=== PATIENT | male | born 1985 | race Caucasian/White ===

== ENCOUNTER 2021-11-01 19:36 | Inpatient (IN) | payer OTHER, MEDICAID, SELFPAY ==
[2021-11-01 19:46] VITALS: BP 141/96; PULSE 60; RESP 18; TEMP 36.7; O2SAT 99; BMI 25.1
[2021-11-01 20:26] LABS: MANUAL DIFF FLAG NO
[2021-11-01 20:27] LABS: COVID-19 Test Negative (Negative)
[2021-11-01 20:27] LABS: Basophils Percent Auto 0.3 % (0-2); Eosinophils Absolute Auto 0.1 X10*3/uL (0.0-0.4); Eosinophils Percent Auto 0.8 % (0-4); Hematocrit 41.6 % (42.0-52.0); Hemoglobin 13.5 g/dl (14.0-18.0); Imm Gran Abs Auto 0.02 X10*3/uL (0.00-0.03); Imm Gran Pct Auto 0.3 % (0.0-0.4); Lymphocytes Absolute Auto 2.2 X10*3/uL (1.2-4.9); Lymphocytes Percent Auto 35.4 % (20-40); Mean Corpuscular HGB Conc 32.5 g/dl (31.0-36.0); Mean Corpuscular Hemoglobin 28.9 pg (27.0-33.0); Mean Corpuscular Volume 89.1 fL (80.0-98.0); Mean Platelet Volume 9.9 fL (9.4-12.4); Monocytes Absolute Auto 0.5 X10*3/uL (0.1-1.2); Monocytes Percent Auto 7.5 % (2-11); Neutrophils Absolute Auto 3.4 x10*3/uL (2.0-8.3); Neutrophils Percent Auto 55.7 % (45-73); Platelet Count 205 X10*3/uL (160-400); Red Blood Count 4.67 X10*6/uL (4.60-5.80); Red Cell Distribution Width 12.5 % (11.0-16.0); White Blood Count 6.2 X10*3/uL (4.8-10.8)
--- NOTE | 2021-11-01 20:36 | ED.PSYCH ---
HPI - Psych General Chief Complaint: Psychiatric Symptoms <ABDI Shipley Last Filed: 11/01/21 21:03> Stated Complaint: SI Crisis <ABDI Shipley Last Filed: 11/01/21 21:03> Time Seen by Provider: 11/01/21 19:46 <ABDI Shipley Last Filed: 11/01/21 21:03> Source: patient and EMS <ABDI Shipley Last Filed: 11/01/21 21:03> Mode of arrival: EMS <ABDI Shipley Last Filed: 11/01/21 21:03> History of Present Illness HPI Narrative: 36-year-old male with no significant past medical history brought in by ambulance from [facility] clinic on section 12 inpatient bed search for increased depression and suicidality. Patient reports depression x7 months with many different plans for suicide which he will not be explicit with. Admits to plan today. Reports depression due to losing land/job and becoming poor. States he does not want to deal with anything any longer, and cries all day every day with no more tears to cry but the only reason he does not commit suicide is because of his family. Denie EtOH or drug use. Reports generalized fatigue/weakness. Denies chest pain, shortness of breath, abdominal pain, nausea/vomiting, HI <ABDI Shipley Last Filed: 11/01/21 21:03> MD complaint: suicidal ideation and feels depressed <ABDI Shipley Last Filed: 11/01/21 21:03> Onset (ago): month(s) <ABDI Shipley Last Filed: 11/01/21 21:03> Related Data Home Medications: Home Medications Medication Instructions Recorded Confirmed clonazepam 0.5 mg tablet 1 tab PO BID PRN 11/01/21 11/01/21 dextroamphetamine-amphetamine ER 1 cap PO DAILY PRN 11/01/21 11/01/21 10 mg 24hr capsule,extend release (Adderall XR) gabapentin 100 mg capsule 1 cap PO NEEDED PRN 11/01/21 11/01/21 lithium carbonate 600 mg capsule 1 cap PO TID 11/01/21 11/01/21 lurasidone 40 mg tablet (Latuda) 1 tab DAILY 11/01/21 11/01/21 melatonin 10 mg capsule 1 tab PO BEDTIME PRN 11/01/21 11/01/21 <ABDI Shipley - Last Filed: 11/01/21 21:03> Allergies/Adverse Reactions: Allergies Allergy/AdvReac Type Severity Reaction Status Date / Time No Known Allergies Allergy Mild N/A Unverified 02/17/20 17:31 <ABDI Shipley - Last Filed: 11/01/21 21:03> Review of Systems Review of Systems: Constitutional: No Fever, No Chills,No Fatigue, No Malaise ENT/Mouth: No Ear Pain, No Nasal Congestion, No sore throat, No Rhinorrhea, No Swallowing Difficulty Eyes: No Eye Pain, No Swelling, No Redness Cardiovascular: No Chest Pain, No SOB, No Edema, No Palpitations Respiratory: No Cough, No Sputum, No Dyspnea Gastrointestinal: No Nausea, No Vomiting, No Diarrhea, No Constipation, No Abdominal pain Genitourinary: No Dysuria, No Urinary Frequency, No Hematuria, No Flank Pain Musculoskeletal: No joint pain, No Myalgias, No Joint Swelling Skin: No Skin Lesions, No rash Neuro: + Weakness, No Numbness, No Paresthesias, No Loss of Consciousness, No Dizziness, No Headache Psych: No Anxiety/Panic, + Depression, + SI, No HI/AH/VH, + Social Issues <ABDI Shipley - Last Filed: 11/01/21 21:03> Yes all other systems are reviewed and are negative <ABDI Shipley Last Filed: 11/01/21 21:03> [facility] Past Medical History Attestation statement: The following information was validated with the patient. <ABDI Shipley - Last Filed: 11/01/21 21:03> Social History Social History: Social History Advance Directives: No <ABDI Shipley Last Filed: 11/01/21 21:03> Physical Exam Vital Signs: Vital Signs: Last Vital Signs Temp 98.1 F 11/01/21 19:46 Pulse 73 11/02/21 01:12 Resp 16 11/02/21 01:12 BP 139/82 11/02/21 01:12 Pulse Ox 97 11/02/21 01:12 BMI result Body Mass Index 25.1 <ABDI Shipley - Last Filed: 11/01/21 21:03> Const: General: cooperative, healthy appearing, no acute distress, alert, awake and Physically active <ABDI Shipley - Last Filed: 11/01/21 21:03> Orientation/consciousness: patient oriented x3 <ABDI Shipley - Last Filed: 11/01/21 21:03> Limitations: no limitations <ABDI Shipley - Last Filed: 11/01/21 21:03> HEENT: Head: Yes normal to inspection and Yes atraumatic <ABDI Shipley - Last Filed: 11/01/21 21:03> Ears: hearing grossly normal bilaterally <ABDI Shipley - Last Filed: 11/01/21 21:03> General nose exam: Normal external nose present <ABDI Shipley - Last Filed: 11/01/21 21:03> Face and sinus: Yes normal facial exam <ABDI Shipley - Last Filed: 11/01/21 21:03> Throat: Yes posterior oropharynx normal <ABDI Shipley - Last Filed: 11/01/21 21:03> Eyes: General: appearance normal, both eyes and all related structures <ABDI Shipley - Last Filed: 11/01/21 21:03> Pupils: Equal, round and reactive pupils present <ABDI Shipley - Last Filed: 11/01/21 21:03> EOM: EOMs intact bilaterally <ABDI Shipley - Last Filed: 11/01/21 21:03> Neck: Neck: Yes normal visual inspection and Yes no meningeal signs <ABDI Shipley - Last Filed: 11/01/21 21:03> Resp: Effort & Inspection: normal respiratory effort and no respiratory distress <ABDI Shipley - Last Filed: 11/01/21 21:03> Auscultation: clear to auscultation bilaterally, no rales, no rhonchi and no wheezes <ABDI Shipley - Last Filed: 11/01/21 21:03> Cardio: Rate: regular rate <Shala Momin PA - Last Filed: 11/01/21 21:03> Heart sounds: S1 normal heart sound present and S2 normal heart sound present <Shala Momin PA - Last Filed: 11/01/21 21:03> GI: Inspection: Yes normal to inspection <Shala Momin PA - Last Filed: 11/01/21 21:03> Palpation (GI): Soft to palpation, nontender, no guarding and not rigid <Shala Momin PA - Last Filed: 11/01/21 21:03> Skin: Rashes: no rashes <Shala Momin PA - Last Filed: 11/01/21 21:03> Wounds: no wounds <Shala Momin PA - Last Filed: 11/01/21 21:03> Neuro: General: patient oriented x3, gait normal, tone normal, moves all extremities, no meningeal signs, no focal motor deficits and CN's II-XI intact bilaterally <Shala Momin PA - Last Filed: 11/01/21 21:03> Cranial nerves: Yes Equal, round and reactive pupils present <Shala Momin PA - Last Filed: 11/01/21 21:03> Gait exam (Neuro): Normal gait present <Shala Momin PA - Last Filed: 11/01/21 21:03> Extrem: General: Yes normal to inspection <Shala Momin PA - Last Filed: 11/01/21 21:03> Psych: Speech and movement: Normal speech and movement present <Shala Momin PA - Last Filed: 11/01/21 21:03> Affect: Sad affect present and Irritable affect present <Shala Momin PA - Last Filed: 11/01/21 21:03> Attitude: cooperative <Shala Momin PA - Last Filed: 11/01/21 21:03> Thought content: Suicidality present, no homicidality and Depressive thoughts present <ABDI Shipley - Last Filed: 11/01/21 21:03> Course Course Course Narrative: -2100--ED care transferred to Dr. Elmogy pending labs, UA/NGUYEN and bed search <ABDI Shipley - Last Filed: 11/01/21 21:03> MDM - Psych MDM Narrative Medical decision making narrative: 36-year-old male with no significant past medical history brought in by ambulance from [facility] on section 12 inpatient bed search for increased depression and suicidality. On exam vital signs stable, NAD, appears depressed, sad affect, expressing suicidal ideation. Will rule out organic etiology Plan: Labs, drug screen, crisis cons <ABDI Shipley - Last Filed: 11/01/21 21:03> Differential Diagnosis Differential diagnosis: Likely suicidal ideation and depression <ABDI Shipley - Last Filed: 11/01/21 21:03> Medical Records Attestation: I reviewed the patient's medical records. <ABDI Shipley - Last Filed: 11/01/21 21:03> Lab Data Attestation: I reviewed the patient's lab results. <ABDI Shipley - Last Filed: 11/01/21 21:03> Result diagrams: : 11/01/21 20:20 11/01/21 20:20 <ABDI Shipley - Last Filed: 11/01/21 21:03> Labs: Lab Results 11/01/21 11/01/21 11/01/21 Range/Units 19:56 20:11 20:20 WBC 6.2 (4.8-10.8) X10*3/uL RBC 4.67 (4.60-5.80) X10*6/uL Hgb 13.5 L (14.0-18.0) g/dl Hct 41.6 L (42.0-52.0) % MCV 89.1 (80.0-98.0) fL MCH 28.9 (27.0-33.0) pg MCHC 32.5 (31.0-36.0) g/dl RDW 12.5 (11.0-16.0) % Plt Count 205 (160-400) X10*3/uL MPV 9.9 (9.4-12.4) fL Immature Gran % (Auto) 0.3 (0.0-0.4) % Neut % (Auto) 55.7 (45-73) % Lymph % (Auto) 35.4 (20-40) % [place] % (Auto) 7.5 (2-11) % Eos % (Auto) 0.8 (0-4) % Baso % (Auto) 0.3 (0-2) % Lymph # (Auto) 2.2 (1.2-4.9) X10*3/uL [place] # (Auto) 0.5 (0.1-1.2) X10*3/uL Eos # (Auto) 0.1 (0.0-0.4) X10*3/uL Baso # (Auto) 0.0 (0.0-0.2) X10*3/uL Abs Immat Gran (auto) 0.02 (0.00-0.03) X10*3/uL Absolute Neuts (auto) 3.4 (2.0-8.3) x10*3/uL Absolute Nucleated RBC 0.000 (0.0-0.012) X10*3/uL Nucleated RBC % (auto) 0.0 (0.0-0.2) /100WBC Sodium (135-145) mmol/L Potassium (3.3-5.1) mmol/L Chloride (96-108) mmol/L Carbon Dioxide (22-29) mmol/L Anion Gap (12-20) BUN (9-16) mg/dL Creatinine (0.5-1.4) mg/dL Estim Creat Clear Calc Estimated GFR Random Glucose (60-115) mg/dL Calcium (8.4-10.2) mg/dL Magnesium (1.6-2.6) mg/dL Total Bilirubin (0.0-1.0) mg/dL Direct Bilirubin (0.0-0.5) mg/dL AST (5-37) U/L ALT (0-40) U/L Alkaline Phosphatase (39-117) U/L Total Protein (6.5-8.0) g/dL Albumin (3.5-5.0) g/dL Salicylates (15-30) mg/dL Urine Opiates Screen Not Detected (Not Detect) Urine Fentanyl Screen Not Detected (Not Detect) Acetaminophen (<30) mcg/mL Ur Barbiturates Screen Not Detected (Not Detect) Ur Phencyclidine Scrn Not Detected (Not Detect) Ur Amphetamines Screen Not Detected (Not Detect) U Benzodiazepines Scrn Not Detected (Not Detect) Urine Cocaine Screen Not Detected (Not Detect) U Marijuana (THC) Screen Not Detected (Not Detect) Ethyl Alcohol mg/dL COVID-19 ([facility]) Negative (Negative) COVID-19 Clin Com See Note 11/01/21 11/01/21 Range/Units 20:20 20:20 WBC (4.8-10.8) X10*3/uL RBC (4.60-5.80) X10*6/uL Hgb (14.0-18.0) g/dl Hct (42.0-52.0) % MCV (80.0-98.0) fL MCH (27.0-33.0) pg MCHC (31.0-36.0) g/dl RDW (11.0-16.0) % Plt Count (160-400) X10*3/uL MPV (9.4-12.4) fL Immature Gran % (Auto) (0.0-0.4) % Neut % (Auto) (45-73) % Lymph % (Auto) (20-40) % [place] % (Auto) (2-11) % Eos % (Auto) (0-4) % Baso % (Auto) (0-2) % Lymph # (Auto) (1.2-4.9) X10*3/uL [place] # (Auto) (0.1-1.2) X10*3/uL Eos # (Auto) (0.0-0.4) X10*3/uL Baso # (Auto) (0.0-0.2) X10*3/uL Abs Immat Gran (auto) (0.00-0.03) X10*3/uL Absolute Neuts (auto) (2.0-8.3) x10*3/uL Absolute Nucleated RBC (0.0-0.012) X10*3/uL Nucleated RBC % (auto) (0.0-0.2) /100WBC Sodium 139 (135-145) mmol/L Potassium 3.7 (3.3-5.1) mmol/L Chloride 105 (96-108) mmol/L Carbon Dioxide 26 (22-29) mmol/L Anion Gap 12 (12-20) BUN 12 (9-16) mg/dL Creatinine 1.05 (0.5-1.4) mg/dL Estim Creat Clear Calc 96.3 Estimated GFR > 60 Random Glucose 83 (60-115) mg/dL Calcium 9.2 (8.4-10.2) mg/dL Magnesium 2.3 (1.6-2.6) mg/dL Total Bilirubin 0.4 (0.0-1.0) mg/dL Direct Bilirubin 0.2 (0.0-0.5) mg/dL AST 19 (5-37) U/L ALT 27 (0-40) U/L Alkaline Phosphatase 48 (39-117) U/L Total Protein 6.9 (6.5-8.0) g/dL Albumin 4.2 (3.5-5.0) g/dL Salicylates < 5.0 L (15-30) mg/dL Urine Opiates Screen (Not Detect) Urine Fentanyl Screen (Not Detect) Acetaminophen < 1 (<30) mcg/mL Ur Barbiturates Screen (Not Detect) Ur Phencyclidine Scrn (Not Detect) Ur Amphetamines Screen (Not Detect) U Benzodiazepines Scrn (Not Detect) Urine Cocaine Screen (Not Detect) U Marijuana (THC) Screen (Not Detect) Ethyl Alcohol < 10 mg/dL COVID-19 ([facility]) (Negative) COVID-19 Clin Com <ABDI Shipley - Last Filed: 11/01/21 21:03> Discharge Plan Discharge Clinical Impression: Suicidal ideation, Depression <ABDI Shipley - Last Filed: 11/01/21 21:03> Patient Disposition: Still a Patient <ABDI Shipley - Last Filed: 11/01/21 21:03> Prescriptions: No Action clonazepam 0.5 mg tablet 1 tab PO BID PRN (Reason: anxiety) 0RF lithium carbonate 600 mg capsule 1 cap PO TID 0RF dextroamphetamine-amphetamine [Adderall XR] 10 mg capsule,extended release 24hr 1 cap PO DAILY PRN (Reason: Anxiety) 0RF gabapentin 100 mg capsule 1 cap PO NEEDED PRN (Reason: Anxiety) 0RF Latuda 40 mg tablet 1 tab DAILY 0RF melatonin 10 mg capsule 1 tab PO BEDTIME PRN (Reason: insomnia) 0RF <ABDI Shipley - Last Filed: 11/01/21 21:03>
[2021-11-01 20:42] LABS: Ethanol < 10 mg/dL
[2021-11-01 20:43] LABS: Amphetamine Screen Urine Not Detected (Not Detect); Barbiturates, Urine Not Detected (Not Detect); Benzodiazepines Screen Urine Not Detected (Not Detect); Cannabinoid Screen Urine Not Detected (Not Detect); Cocaine Screen Urine Not Detected (Not Detect); Fentanyl, urine Not Detected (Not Detect); Opiate Screen Urine Not Detected (Not Detect); Phencyclidine Screen Urine Not Detected (Not Detect)
[2021-11-01 20:53] LABS: Alanine Aminotransferase 27 U/L (0-40); Albumin Level 4.2 g/dL (3.5-5.0); Alkaline Phosphatase 48 U/L (39-117); Anion Gap 12 (12-20); Aspartate Amino Transferase 19 U/L (5-37); Bilirubin Direct 0.2 mg/dL (0.0-0.5); Bilirubin Total 0.4 mg/dL (0.0-1.0); Blood Urea Nitrogen 12 mg/dL (9-16); Calcium 9.2 mg/dL (8.4-10.2); Carbon Dioxide 26 mmol/L (22-29); Chloride 105 mmol/L (96-108); Creatinine Clr Calc Pharmacy 96.3; Estimated Glomerular Filt Rate > 60; Glucose Random 83 mg/dL (60-115); Magnesium 2.3 mg/dL (1.6-2.6); Potassium 3.7 mmol/L (3.3-5.1); Sodium 139 mmol/L (135-145); Total Protein 6.9 g/dL (6.5-8.0)
[2021-11-01 22:43] LABS: Acetaminophen LAB < 1 mcg/mL (<30); Salicylate < 5.0 mg/dL (15-30)
[2021-11-02 01:12] VITALS: BP 139/82; PULSE 73; RESP 16; O2SAT 97
[2021-11-02] MEDS: Melatonin 3 MG TABLET 9 MG PO ×2 (01:55→22:02)
--- NOTE | 2021-11-02 06:16 | PC.NURSE ---
Patient slept through the night, no distress observed/reported, behavior appropriate and non concerning, medication compliant, disposition per [facility] is section 12 inpatient bed search, vss, contracted for the safety, will continue to monitor.
--- NOTE | 2021-11-02 08:04 | PC.NURSE ---
Addendum entered by Tequila Waggoner RN 11/02/21 10:06: Spoke with Nesha from care team regarding pt's frustrations and wishes to speak with someone who can help him with his medications. Plan to discuss in rounds today. This process/plan was described to pt. He appears anxious and was offered a PRN clonazepam but denies at this time. Currently he is calm and resting in bed. Original Note: Pt is upset with plan for inpatient psych. He is cooperative and re-directable but wishes to speak with N for re-eval.
[2021-11-02] MEDS: Lurasidone HCl 40 MG TABLET PO (10:06)
[2021-11-02 10:32] VITALS: BP 130/79; PULSE 77; RESP 16; TEMP 36.9; O2SAT 98
--- NOTE | 2021-11-02 15:39 | PC.NURSE ---
RYAN engaged patient in conversation and offered coloring, word searches and breathing exercises. Patient did not want any of the material and just enjoyed venting. RYAN notified nurse of patient passive SI statements.
[2021-11-02] MEDS: clonazePAM 0.5 MG TABLET PO (17:19)
--- NOTE | 2021-11-02 19:14 | PC.ADMIT ---
Pt is a 36 year old male who presents to from [facility] at approx 1700 on a cv status. Pt is covid - tox screen -. Per chart review, pt was seen at [facility] crisis office due to increased SI and perseveration on wanting to kill himself. Pt repeated that absolutely nothing will help him, he wants to but can ot kill himself, has multiple plans. Pt is mot sleeping, eating, and spends the rest of his day crying. During eval, pt reports he is living in hell and wants to . Pt reports that nothing is working and he hates his life. Medications is reported to not be effective. During admit, pt reported that he did not want to be here. Pt reported that he has been to [facility] in the past and felt like medications did not work. Pt reported that he did not take his klonopin or adderall for 7 months. When pt was asked about his anxiety, pt mentioned that he needed a PRN klonopin to make it through the day. Pt reported that he has been on antidepressant medication and they have not helped. Pt mentioned that he will refuse his lithium medication. Provider called and notified of admission. Start treatment plan and monitor for safety. Pt reported that he lost his house and ruined his finances. Pt reported he lives in a duplex style home and mentioned that he refuses to work a 9 to 5 job.
[2021-11-02 19:30] VITALS: BP 137/60; PULSE 80
[2021-11-03 08:00] LABS: Cholesterol 163 mg/dL; HDL Cholesterol 43 mg/dL; LDL Cholesterol Calculated 113 mg/dl; Magnesium 2.2 mg/dL (1.6-2.6); Triglycerides 35 mg/dL
[2021-11-03 08:06] LABS: Estimated Average Glucose 111 mg/dL; Hemoglobin A1c % 5.5 %
[2021-11-03 08:13] LABS: Free T4 (Free Thyroxine) 0.88 ng/dL (0.71-1.85); Thyroid Stimulating Hormone 0.87 uIU/mL (0.32-4.0)
[2021-11-03] MEDS: Lurasidone HCl 40 MG TABLET PO (08:16)
[2021-11-03 08:20] VITALS: BP 115/63; PULSE 62; RESP 18; TEMP 36.4; O2SAT 98
--- NOTE | 2021-11-03 10:00 | ECG_ITS ---
Test Reason : arrhythmia Blood Pressure : / mmHG Vent. Rate : 060 BPM Atrial Rate : 060 BPM P-R Int : 158 ms QRS Dur : 088 ms QT Int : 408 ms P-R-T Axes : 052 084 -16 degrees QTc Int : 408 ms Normal sinus rhythm Nonspecific T wave abnormality Borderline EKG No previous ECGs available Referred By: Brenda Blackburn Electronically Signed By:ANDREW SALINAS
[2021-11-03] MEDS: OLANZapine 5 MG TABLET PO (11:00)
--- NOTE | 2021-11-03 15:34 | P.HPPS_ITS ---
HPI Date of Service: 11/03/21 Chief Complaint: Bipolar disorder, depressed Sources of Information: patient interviewed, chart reviewed and crisis/core team assessment reviewed HPI Subjective Notes: [place] Warning and Conditional Voluntary Healthcare Proxy: No Guardianship: No Medical Problems Affecting Mental Status: No Narrative: 36 yo male, with one daughter, history of bipolar disorder, with both adri and depression, reports an increase in self-loathing, SI, perseverative sx and anger. Pt is extensively help rejecting, has multiple plans to kill himself. He reports disruptions in sleep, appetite and reports extended periods of sadness and crying. He reports that seven months ago life was good. 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 In 2020 he built his first home and was able to sell it. In 2021 he received permits to build more homes and felt he was on top of the world. He reports an increase in spending, both on the business and on personal items and one evening after interacting with his 4 yo daughter he started to have a perspective change, realizing he was acting and spending on himself and not on or for his family. He experienced intense sx of blame, panic and this led him to a breakdown , where he felt stuck for 6 weeks with ongoing panic. He did not sleep for four weeks. His was unsure of what to do or what was happening. He was seen by N and diagnosed with adri. Since that eval he has had in pt stays, CCS, OP treaatment and psychiatry with no relief. He lost his home and had to move his family into one of his rental properties. He is ashamed to have them there due to the conditions of the home and the neighborhood. He feels he has let down his and daughter. His small alutiiq of family/friends of [place] have informed him he is a disgrace to their alutiiq. He has lost respect and is now in place for the rape of society, my , my daughter and I. Currently he reports his mind will not shut off and is stuck, spinning. He cannot sleep, panic comes out of nowhere, has had a 30 lb weight loss in ~6 months, does not attend to ADL's, weeps for hours. Feels , toxic. He has not seen his daughter in seven months. He reports, by nature, he is an unhappy person, however he now believes it is over-he has recently sat with #90 Klonopin pending OD, but is too afraid. He is reluctant to trial anything new, but after a long discussion will allow trials. Past Psychiatric History: Meds-Adderall, Klonopin, Lamictal-rash, Gumlog-tremor on 1500 mg, Latuda-it does nothing, Remeron, Sertraline. Fears impotence on meds and will not tolerate this SE. IP: Apr 2021-Rani Hernandez OP: N, [facility] case mgt since 05/22 Medical Evaluation Reviewed: Yes [facility] Medical History (Updated 11/03/21 @ 16:06 by Brenda Blackburn, IT COMMUNICATIONS SPECIALIST) Mixed bipolar disorder Family History: Bipolar-Father, Brother-homebound with severe illness Social History: , 2 children-son age 12 from a previous relationship who was adopted by pt's sister; daughter 5. Unemployed, seeking social security Substance History: Sober/Clean for 10 years Hx opiates-stopped age 26 Hx alcohol daily-stopped age 26 Hx [id number] age 26 Trauma History: Losses Diagnostics Vital Signs (24Hr): Vital Signs - 24 hr 11/02/21 19:30 11/03/21 08:20 Temperature 97.6 F Pulse Rate 80 62 Respiratory Rate 18 Blood Pressure 137/60 115/63 Pulse Oximetry 98 BMI result Body Mass Index 25.1 Labs Results: 11/01/21 20:20 11/01/21 20:20 Labs: Laboratory Results - last 48 hr 11/01/21 11/01/21 11/01/21 19:56 20:11 20:20 WBC 6.2 RBC 4.67 Hgb 13.5 L Hct 41.6 L MCV 89.1 MCH 28.9 MCHC 32.5 RDW 12.5 Plt Count 205 MPV 9.9 Immature Gran % (Auto) 0.3 Neut % (Auto) 55.7 Lymph % (Auto) 35.4 [place] % (Auto) 7.5 Eos % (Auto) 0.8 Baso % (Auto) 0.3 Lymph # (Auto) 2.2 [place] # (Auto) 0.5 Eos # (Auto) 0.1 Baso # (Auto) 0.0 Abs Immat Gran (auto) 0.02 Absolute Neuts (auto) 3.4 Absolute Nucleated RBC 0.000 Nucleated RBC % (auto) 0.0 Sodium Potassium Chloride Carbon Dioxide Anion Gap BUN Creatinine Estim Creat Clear Calc Estimated GFR Random Glucose Estimat Average Glucose Hemoglobin A1c % Calcium Magnesium Total Bilirubin Direct Bilirubin AST ALT Alkaline Phosphatase Total Protein Albumin Triglycerides Cholesterol LDL Cholesterol, Calc HDL Cholesterol TSH Free T4 Salicylates Urine Opiates Screen Not Detected Urine Fentanyl Screen Not Detected Acetaminophen Ur Barbiturates Screen Not Detected Ur Phencyclidine Scrn Not Detected Ur Amphetamines Screen Not Detected U Benzodiazepines Scrn Not Detected Urine Cocaine Screen Not Detected U Marijuana (THC) Screen Not Detected Ethyl Alcohol COVID-19 (KORI) Negative COVID-19 [employer] Com See Note 11/01/21 11/01/21 11/03/21 20:20 20:20 07:20 WBC RBC Hgb Hct MCV MCH MCHC RDW Plt Count MPV Immature Gran % (Auto) Neut % (Auto) Lymph % (Auto) [place] % (Auto) Eos % (Auto) Baso % (Auto) Lymph # (Auto) [place] # (Auto) Eos # (Auto) Baso # (Auto) Abs Immat Gran (auto) Absolute Neuts (auto) Absolute Nucleated RBC Nucleated RBC % (auto) Sodium 139 Potassium 3.7 Chloride 105 Carbon Dioxide 26 Anion Gap 12 BUN 12 Creatinine 1.05 Estim Creat Clear Calc 96.3 Estimated GFR > 60 Random Glucose 83 Estimat Average Glucose 111 Hemoglobin A1c % 5.5 Calcium 9.2 Magnesium 2.3 Total Bilirubin 0.4 Direct Bilirubin 0.2 AST 19 ALT 27 Alkaline Phosphatase 48 Total Protein 6.9 Albumin 4.2 Triglycerides Cholesterol LDL Cholesterol, Calc HDL Cholesterol TSH Free T4 Salicylates < 5.0 L Urine Opiates Screen Urine Fentanyl Screen Acetaminophen < 1 Ur Barbiturates Screen Ur Phencyclidine Scrn Ur Amphetamines Screen U Benzodiazepines Scrn Urine Cocaine Screen U Marijuana (THC) Screen Ethyl Alcohol < 10 COVID-19 (KORI) COVID-19 [place] 11/03/21 07:20 WBC RBC Hgb Hct MCV MCH MCHC RDW Plt Count MPV Immature Gran % (Auto) Neut % (Auto) Lymph % (Auto) [place] % (Auto) Eos % (Auto) Baso % (Auto) Lymph # (Auto) [place] # (Auto) Eos # (Auto) Baso # (Auto) Abs Immat Gran (auto) Absolute Neuts (auto) Absolute Nucleated RBC Nucleated RBC % (auto) Sodium Potassium Chloride Carbon Dioxide Anion Gap BUN Creatinine Estim Creat Clear Calc Estimated GFR Random Glucose Estimat Average Glucose Hemoglobin A1c % Calcium Magnesium 2.2 Total Bilirubin Direct Bilirubin AST ALT Alkaline Phosphatase Total Protein Albumin Triglycerides 35 Cholesterol 163 LDL Cholesterol, Calc 113 HDL Cholesterol 43 TSH 0.87 Free T4 0.88 Salicylates Urine Opiates Screen Urine Fentanyl Screen Acetaminophen Ur Barbiturates Screen Ur Phencyclidine Scrn Ur Amphetamines Screen U Benzodiazepines Scrn Urine Cocaine Screen U Marijuana (THC) Screen Ethyl Alcohol COVID-19 (KORI) COVID-19 Clin Com Meds/Allergies Meds Home Medications Medication Instructions Recorded Confirmed Type clonazepam 0.5 mg tablet 1 tab PO BID PRN 11/01/21 11/01/21 History dextroamphetamine-amphetamine ER 1 cap PO DAILY PRN 11/01/21 11/01/21 History 10 mg 24hr capsule,extend release (Adderall XR) gabapentin 100 mg capsule 1 cap PO NEEDED PRN 11/01/21 11/01/21 History lithium carbonate 600 mg capsule 1 cap PO TID 11/01/21 11/01/21 History lurasidone 40 mg tablet (Latuda) 1 tab DAILY 11/01/21 11/01/21 History melatonin 10 mg capsule 1 tab PO BEDTIME PRN 11/01/21 11/01/21 History Allergies Allergies Allergy/AdvReac Type Severity Reaction Status Date / Time lamotrigine [From Lamictal] Allergy Severe Rash Verified 11/03/21 15:52 Mental Status Exam Mental Status Exam Patient Appearance: Appropriate Patient Orientation: Person, Place, Time and Situation Level of Consciousness: Alert Patient Behavior: Talkative, Suspicious, Aggressive, Restless, Anxious, Fearful, Resistive to Care, Avoidant, Distractible, Good Eye Contact, Crying and Impulsive Mood Description: Apathetic, Suspicious, Withdrawn, Depressed, Fearful, Hostile, Anxious, Labile, Angry, Sad, Nervous, Apprehensive and Expansive Affect Description: Labile Patient Cognition Impaired: No Ability to Follow Directions: Good Speech Pattern: Spontaneous Speech and Pressured Memory Description: Intact Delusions: Present Perceptual Disturbances: Depersonalization and Derealization Thought Process: Racing and Rumination Thought Content: positive for [place], positive for Obsessional Thoughts, positive for Circumstantial, positive for Perseveration, positive for Preoccupation and positive for Suicidal Ideation Depressive Symptoms: Increased Anxiety, Insomnia, Increased Irritability, Difficulty Sleeping, Changes in Appetite, Crying Spells, Significant Weight Loss, Loss of Int. in Activity, Feelings of Worthlessness, Hopelessness, I solating-Friends/Family, Feelings of Guilt, Unhappiness, Increased Fatigue, Thoughts of /Suicide, Low Self Esteem, Loss of Energy and Difficulty Concentrating Abnormal Motor Activity Signs and Symptoms: Restlessness Judgement: Poor Assessment & Plan Assessment & Plan (1) Mixed bipolar disorder: Status: Acute Code(s): F31.60 - Bipolar disorder, current episode mixed, unspecified Plan 36 yo male, hx of bipolar disorder, diagnosed in 2020 with mixed features. Due to manic symptoms, pt lost control of spending and lost his business, home and status in his [place] community. As a result he reports SI with plans, intent. He has had several trials in the past and is hesitant to re-trial, but agrees. Plan: Discontinue Adderall, Latuda, Gumlog (not taking it he states) Depakote 250 mg bid Olanzapine 5 mg bid and prn Stabilize mood, thought process, then re-evaluate depression Collateral contacts with family, OP team Referral to [facility] Assist with networking pt with his N team to complete disability application. MVI i tab daily Vitamin D 1 tab daily Patient educated on: diagnosis, medication risk/benefits and therapeutic strategies Informed Consent: further education needed Reason for continued inpatient stay Substantial Risk for: harm to self, inability to function and rapid decompensation
[2021-11-03 17:05] VITALS: BP 110/65; PULSE 51; TEMP 36.6; O2SAT 98
--- NOTE | 2021-11-03 17:26 | PC.NURSE ---
Patient in bed, very sleepy; he c/o not being able to wake up today and does not like the way medication made him feel. Vitals were taken and the BP was 110/65, HR 51, temp 97.9 and O2 sats on RA 98%. BP was done on the left upper arm with the patient in a supine position. precision farming specialist provider, Brenda Toth notified that the HR was 51 manually. The tube room supervisor was notified that the EKG ordered earlier was not done, and she will have a injection mold tooling technician up after Code [place] in ICU has been completed.
--- NOTE | 2021-11-03 19:45 | PC.NURSE ---
EKG was done and picture [place] texted to Brenda Toth.
[2021-11-03 22:45] VITALS: BP 96/58; PULSE 54
[2021-11-04] MEDS: Cholecalciferol (Vitamin D3) 25 MCG TABLET PO (09:14)
[2021-11-04] MEDS: Multivitamin TABLET 1 TAB PO (09:14)
--- NOTE | 2021-11-04 10:51 | P.PNPSI_ITS ---
Subjective Subjective Date of Service: 11/04/21 Reason For Visit: Bipolar disorder, depressed Subjective Notes: Conditional Voluntary Healthcare Proxy: No Guardianship: No Medical Problems Affecting Mental Status: No Interim History: Slept he reports all day yesterday and last night with 5 mg Olanzapine. Discussed feeling numb. Medicines make me feel numb, impotent, not myself. You took away my attitude. Depressed, discouraged. Discussed moving forward with treatment. Will continue Olanzapine prn. Depakote 125 mg HS, Wellbutrin 75 mg a.m. Discussed application for disability, transitional assistance. I have ruined my family's life. BP low yesterday and today. Pt reports he continues to feel some sedation. Medication Compliance: Yes Side effects from medications: Yes (sedation) Attending Groups: No Review of Systems Acute medical concerns: No Review of Systems Review of Systems Yes all other systems are reviewed and are negative Genitourinary: Reports change in libido Reports behavioral changes Psychiatric: Reports abnormal sleep pattern, Reports anxiety, Reports behavioral changes, Reports change in appetite, Reports change in libido, Reports depression, Reports difficulty concentrating, Reports hopelessness, Reports irritability, Reports anhedonia, Reports mood swings, Reports panic attacks and Reports suicidal ideation Endocrine: Reports change in libido Mental Status Exam Mental Status Exam Patient Appearance: Appropriate Patient Orientation: Person, Place, Time and Situation Level of Consciousness: Alert Patient Behavior: Talkative, Suspicious, Aggressive, Restless, Anxious, Fearful, Resistive to Care, Avoidant, Distractible, Good Eye Contact, Crying and Impulsive Mood Description: Apathetic, Suspicious, Withdrawn, Depressed, Fearful, Hostile, Anxious, Labile, Angry, Sad, Nervous, Apprehensive and Expansive Affect Description: Labile Patient Cognition Impaired: No Ability to Follow Directions: Good Speech Pattern: Spontaneous Speech and Pressured Memory Description: Intact Delusions: Present Perceptual Disturbances: Depersonalization and Derealization Thought Process: Racing and Rumination Thought Content: positive for [place], positive for Obsessional Thoughts, positive for Circumstantial, positive for Perseveration, positive for Preoccupation and positive for Suicidal Ideation Depressive Symptoms: Increased Anxiety, Insomnia, Increased Irritability, Difficulty Sleeping, Changes in Appetite, Crying Spells, Significant Weight Loss, Loss of Int. in Activity, Feelings of Worthlessness, Hopelessness, Isolating-Friends/Family, Feelings of Guilt, Unhappiness, Increased Fatigue, Thoughts of /Suicide, Low Self Esteem, Loss of Energy and Difficulty Concentrating Abnormal Motor Activity Signs and Symptoms: Restlessness Judgement: Poor Diagnostics Vital Signs (24Hr): Vital Signs - 24 hr 11/03/21 17:05 11/03/21 22:45 Temperature 97.9 F Pulse Rate 51 54 Blood Pressure 110/65 96/58 L Pulse Oximetry 98 BMI result Body Mass Index 25.1 Labs Results: 11/01/21 20:20 11/01/21 20:20 Labs: Laboratory Results - last 48 hr 11/03/21 11/03/21 07:20 07:20 Estimat Average Glucose 111 Hemoglobin A1c % 5.5 Magnesium 2.2 Triglycerides 35 Cholesterol 163 LDL Cholesterol, Calc 113 HDL Cholesterol 43 TSH 0.87 Free T4 0.88 Medications Medications Current Medications Acetaminophen (Acetaminophen 325 Mg Tablet) 650 mg PO Q6H PRN PRN Reason: Headache/Pain Mild Scale (1-3) Al Hydroxide/Mg Hydroxide (Magnesium Hydrox/Alum Hydrox 30 Ml Oral.Susp) 30 ml PO Q6H PRN PRN Reason: Heartburn/Nausea Bupropion HCl (Bupropion Hcl 75 Mg Tablet) 75 mg PO DAILY [facility] Clonazepam (Clonazepam 0.5 Mg Tablet) 0.5 mg PO BID PRN PRN Reason: anxiety Last Admin: 11/02/21 17:19 Dose: 0.5 mg Documented by: Divalproex Sodium (Divalproex Sodium 250 Mg Tablet.Dr) 125 mg PO BEDTIME [facility] Gabapentin (Gabapentin 100 Mg Capsule) 100 mg PO TID PRN PRN Reason: Anxiety Hydroxyzine HCl (Hydroxyzine Hcl 25 Mg Tablet) 25 mg PO BEDTIME PRN PRN Reason: Anxiety Magnesium Hydroxide (Milk Of Magnesia 30 Ml Oral.Susp) 30 ml PO DAILY PRN PRN Reason: Constipation Melatonin (Melatonin 3 Mg Tablet) 9 mg PO BEDTIME PRN PRN Reason: insomnia Last Admin: 11/02/21 22:02 Dose: 9 mg Documented by: Multivitamins/Vitamin C (Multivitamin Tablet) 1 tab PO DAILY [facility] Last Admin: 11/04/21 09:14 Dose: 1 tab Documented by: Olanzapine (Olanzapine 5 Mg Tablet) 5 mg PO Q4H PRN PRN Reason: adri, agitation Trazodone HCl (Trazodone Hcl 50 Mg Tablet) 50 mg PO BEDTIME PRN PRN Reason: Insomnia Vitamin D (Cholecalciferol (Vitamin D3) 25 Mcg Tablet) 25 mcg PO DAILY [facility] Last Admin: 11/04/21 09:14 Dose: 25 mcg Documented by: Allergies Allergies Allergy/AdvReac Type Severity Reaction Status Date / Time lamotrigine [From Lamictal] Allergy Severe Rash Verified 11/03/21 15:52 Assessment & Plan Assessment & Plan (1) Mixed bipolar disorder: Status: Acute Code(s): F31.60 - Bipolar disorder, current episode mixed, unspecified Plan 36 yo male, hx of bipolar disorder, diagnosed in 2020 with mixed features. Due to manic symptoms, pt lost control of spending and lost his business, home and status in his [place] community. As a result he reports SI with plans, intent. He has had several trials in the past and is hesitant to re-trial, but agrees. Plan: Discontinue Adderall, Latuda, [place] (not taking it he states) Depakote 250 mg bid Olanzapine 5 mg bid and prn Stabilize mood, thought process, then re-evaluate depression Collateral contacts with family, OP team Referral to [facility] Assist with networking pt with his N team to complete disability application. MVI i tab daily Vitamin D 1 tab daily 11/04/21: Discontinue scheduled Olanzapine, continue prn Olanzapine. Change Depakote to 125 mg hs-to begin tonight Wellbutrin 75 mg a.m. I spent minutes with the patient and/or on the patient floor today, greater than?50% of which was spent counseling/coordinating care. Patient educated on: diagnosis, medication risk/benefits and therapeutic s trategies Informed Consent: understands and further education needed Reason for contiued inpatient stay Substantial Risk for: harm to self, inability to function and rapid decompensation
[2021-11-04] MEDS: clonazePAM 0.5 MG TABLET PO (16:03)
[2021-11-04 18:00] VITALS: BP 114/78; PULSE 66; RESP 14; TEMP 36.4; O2SAT 97
[2021-11-04] MEDS: Divalproex Sodium 250 MG TABLET.DR 125 MG PO (21:08)
[2021-11-04] MEDS: Melatonin 3 MG TABLET 9 MG PO (22:53)
[2021-11-05 06:00] VITALS: BP 111/68; PULSE 64; RESP 16; TEMP 36.6; O2SAT 98
[2021-11-05 08:56] LABS: Folate 10.2 ng/mL (> or = 4.0); Vitamin B12 331 pg/mL (200-900)
[2021-11-05] MEDS: Cholecalciferol (Vitamin D3) 25 MCG TABLET PO (09:22)
[2021-11-05] MEDS: Multivitamin TABLET 1 TAB PO (09:22)
[2021-11-05] MEDS: buPROPion HCL 75 MG TABLET PO (09:22)
--- NOTE | 2021-11-05 13:21 | P.PNPSI_ITS ---
Subjective Subjective Date of Service: 11/05/21 Reason For Visit: Bipolar disorder, depressed Subjective Notes: Conditional Voluntary Healthcare Proxy: No Guardianship: No Medical Problems Affecting Mental Status: No Interim History: Met with pt, . is very supportive of pt, of treatment, and of pt returning to the family home. Pt discussed concerns about med side effects and sexual side effects. Discussed his history-pt describes himself as a narcissist and this was discussed. He is very invested in his and daughter and is guilt ridden that he has illness and is unable to provide for them. Both applied for DTA during her visit-this went well they report and they will have another telephone appt with DTA next week. Pt also looking at his social security disability application and if he needs to re-apply. Offered medication education regarding medications prescribed. Medication Compliance: Yes Side effects from medications: No Attending Groups: Intermittent Review of Systems Acute medical concerns: No Medical Review of Systems: unchanged Review of Systems Reports behavioral changes Psychiatric: Reports anxiety, Reports behavioral changes, Reports depression, Reports difficulty concentrating, Reports hopelessness, Reports irritability, Reports anhedonia, Reports mood swings and Reports suicidal ideation Mental Status Exam Mental Status Exam Patient Appearance: Appropriate Patient Orientation: Person, Place, Time and Situation Level of Consciousness: Alert Patient Behavior: Talkative, Anxious, Fearful, Resistive to Care, Distractible, Good Eye Contact and Impulsive Mood Description: Suspicious, Withdrawn, Depressed, Fearful, Anxious, Sad, Nervous, Apprehensive and Expansive Affect Description: Labile Patient Cognition Impaired: No Ability to Follow Directions: Good Speech Pattern: Spontaneous Speech Memory Description: Intact Perceptual Disturbances: Depersonalization and Derealization Thought Process: Rumination Thought Content: positive for [facility] [place], positive for Obsessional Thoughts, positive for Circumstantial, positive for Perseveration, positive for Preoccupation and positive for Suicidal Ideation Depressive Symptoms: Increased Anxiety, Increased Irritability, Changes in Appetite, Crying Spells, Significant Weight Loss, Loss of Int. in Activity, Feelings of Worthlessness, Hopelessness, Isolating-Friends/Family, Feelings of Guilt, Unhappiness, Increased Fatigue, Thoughts of /Suicide, Low Self Esteem, Loss of Energy and Difficulty Concentrating Abnormal Motor Activity Signs and Symptoms: Restlessness Judgement: Poor Diagnostics Vital Signs (24Hr): Vital Signs - 24 hr 11/04/21 18:00 11/05/21 06:00 Temperature 97.6 F 97.8 F Pulse Rate 66 64 Respiratory Rate 14 16 Blood Pressure 114/78 111/68 Pulse Oximetry 97 98 BMI result Body Mass Index 25.1 Labs Results: 11/01/21 20:20 11/01/21 20:20 Labs: Laboratory Results - last 48 hr 11/03/21 07:20 Vitamin B12 331 Folate 10.2 Medications Medications Current Medications Acetaminophen (Acetaminophen 325 Mg Tablet) 650 mg PO Q6H PRN PRN Reason: Headache/Pain Mild Scale (1-3) Al Hydroxide/Mg Hydroxide (Magnesium Hydrox/Alum Hydrox 30 Ml Oral.Susp) 30 ml PO Q6H PRN PRN Reason: Heartburn/Nausea Bupropion HCl (Bupropion Hcl 75 Mg Tablet) 75 mg PO DAILY [facility] Last Admin: 11/05/21 09:22 Dose: 75 mg Documented by: Clonazepam (Clonazepam 0.5 Mg Tablet) 0.5 mg PO BID PRN PRN Reason: anxiety Last Admin: 11/04/21 16:03 Dose: 0.5 mg Documented by: Divalproex Sodium (Divalproex Sodium 250 Mg Tablet.Dr) 125 mg PO BEDTIME [facility] Last Admin: 11/04/21 21:08 Dose: 125 mg Documented by: Gabapentin (Gabapentin 100 Mg Capsule) 100 mg PO TID PRN PRN Reason: Anxiety Hydroxyzine HCl (Hydroxyzine Hcl 25 Mg Tablet) 25 mg PO BEDTIME PRN PRN Reason: Anxiety Magnesium Hydroxide (Milk Of Magnesia 30 Ml Oral.Susp) 30 ml PO DAILY PRN PRN Reason: Constipation Melatonin (Melatonin 3 Mg Tablet) 9 mg PO BEDTIME PRN PRN Reason: insomnia Last Admin: 11/04/21 22:53 Dose: 9 mg Documented by: Multivitamins/Vitamin C (Multivitamin Tablet) 1 tab PO DAILY [facility] Last Admin: 11/05/21 09:22 Dose: 1 tab Documented by: Olanzapine (Olanzapine 5 Mg Tablet) 5 mg PO Q4H PRN PRN Reason: adri, agitation Trazodone HCl (Trazodone Hcl 50 Mg Tablet) 50 mg PO BEDTIME PRN PRN Reason: Insomnia Vitamin D (Cholecalciferol (Vitamin D3) 25 Mcg Tablet) 25 mcg PO DAILY [facility] Last Admin: 11/05/21 09:22 Dose: 25 mcg Documented by: Allergies Allergies Allergy/AdvReac Type Severity Reaction Status Date / Time lamotrigine [From Lamictal] Allergy Severe Rash Verified 11/03/21 15:52 Assessment & Plan Assessment & Plan (1) Mixed bipolar disorder: Status: Acute Code(s): F31.60 - Bipolar disorder, current episode mixed, unspecified Plan 36 yo male, hx of bipolar disorder, diagnosed in 2020 with mixed features. Due to manic symptoms, pt lost control of spending and lost his business, home and status in his [place] community. As a result he reports SI with plans, intent. He has had several trials in the past and is hesitant to re-trial, but agrees. Plan: Discontinue Adderall, Latuda, [place] (not taking it he states) Depakote 250 mg bid Olanzapine 5 mg bid and prn Stabilize mood, thought process, then re-evaluate depression Collateral contacts with family, OP team Referral to [facility] Assist with networking pt with his N team to complete disability application. MVI i tab daily Vitamin D 1 tab daily 11/04/21: Discontinue scheduled Olanzapine, continue prn Olanzapine. Change Depakote to 125 mg hs-to begin tonight Wellbutrin 75 mg a.m. 11/05/21 Continue current regime I spent minutes with the patient and/or on the patient floor today, greater than?50% of which was spent counseling/coordinating care. Patient educated on: medication risk/benefits and therapeutic strategies Guardian/Caregiver educated on: medication risk/benefits and therapeutic strategies Informed Consent: further education needed Reason for contiued inpatient stay Substantial Risk for: harm to self, inability to function and rapid decompensation
[2021-11-05] MEDS: clonazePAM 0.5 MG TABLET PO (13:46)
[2021-11-05 18:00] VITALS: BP 110/71; PULSE 64; RESP 14; O2SAT 98
[2021-11-05] MEDS: Melatonin 3 MG TABLET 9 MG PO (22:55)
[2021-11-05] MEDS: Divalproex Sodium 250 MG TABLET.DR 125 MG PO (22:55)
[2021-11-06 06:00] VITALS: BP 114/76; PULSE 62; RESP 16; TEMP 36.4; O2SAT 98
[2021-11-06] MEDS: Multivitamin TABLET 1 TAB PO (09:01)
[2021-11-06] MEDS: Cholecalciferol (Vitamin D3) 25 MCG TABLET PO (09:01)
[2021-11-06] MEDS: buPROPion HCL 75 MG TABLET PO (09:01)
[2021-11-06] MEDS: clonazePAM 0.5 MG TABLET PO (13:08)
--- NOTE | 2021-11-06 17:10 | P.PNPSI_ITS ---
Subjective Subjective Date of Service: 11/06/21 Reason For Visit: Bipolar disorder, depressed Subjective Notes: Conditional Voluntary Healthcare Proxy: No Guardianship: No Medical Problems Affecting Mental Status: No Interim History: Talking in a more future oriented frame, about losses, errors, mistakes in judgment and of getting back on track. Discussion of medications-pt wanting a different mood stabilizer-concern about erectile dysfunction. Will prepare educational materials for pt which he agrees to. Reports transitional assistance will phone his on 11/12 to gather information for food stamps and [employer]bbins assistance. Unclear yet if pt's previous application for disablity is needing to be re-submitted or updated. Pt reports he is sleeping, eating, re-establishing a schedule for himself. Denies med SE Medication Compliance: Yes Side effects from medications: No Attending Groups: Yes Review of Systems Acute medical concerns: No Medical Review of Systems: unchanged Review of Systems Reports behavioral changes Psychiatric: Reports anxiety, Reports behavioral changes, Reports depression, Reports hopelessness, Reports mood swings and Reports suicidal ideation (decreasing) Mental Status Exam Mental Status Exam Patient Appearance: Appropriate Patient Orientation: Person, Place, Time and Situation Level of Consciousness: Alert Patient Behavior: Talkative, Anxious, Fearful, Resistive to Care, Distractible, Good Eye Contact and Impulsive Mood Description: Suspicious, Withdrawn, Depressed, Fearful, Anxious, Sad, Nervous, Apprehensive and Expansive Affect Description: Labile Patient Cognition Impaired: No Ability to Follow Directions: Good Speech Pattern: Spontaneous Speech Memory Description: Intact Perceptual Disturbances: Depersonalization and Derealization Thought Process: Rumination Thought Content: positive for [place], positive for Obsessional Thoughts, positive for [place]um[place], positive for Perseveration, positive for Preoccupation and positive for Suicidal Ideation Depressive Symptoms: Increased Anxiety, Increased Irritability, Changes in Appetite, Crying Spells, Significant Weight Loss, Loss of Int. in Activity, Feelings of Worthlessness, Hopelessness, Isolating-Friends/Family, Feelings of Guilt, Unhappiness, Increased Fatigue, Thoughts of /Suicide, Low Self Esteem, Loss of Energy and Difficulty Concentrating Abnormal Motor Activity Signs and Symptoms: Restlessness Judgement: Poor Diagnostics Vital Signs (24Hr): Vital Signs - 24 hr 11/05/21 18:00 11/06/21 06:00 Temperature 97.6 F Pulse Rate 64 62 Respiratory Rate 14 16 Blood Pressure 110/71 114/76 Pulse Oximetry 98 98 BMI result Body Mass Index 25.1 Labs Results: 11/01/21 20:20 11/01/21 20:20 Labs: Laboratory Results - last 48 hr 11/03/21 07:20 Vitamin B12 331 Folate 10.2 Medications Medications Current Medications Acetaminophen (Acetaminophen 325 Mg Tablet) 650 mg PO Q6H PRN PRN Reason: Headache/Pain Mild Scale (1-3) Al Hydroxide/Mg Hydroxide (Magnesium Hydrox/Alum Hydrox 30 Ml Oral.Susp) 30 ml PO Q6H PRN PRN Reason: Heartburn/Nausea Bupropion HCl (Bupropion Hcl 75 Mg Tablet) 75 mg PO DAILY [facility] Last Admin: 11/06/21 09:01 Dose: 75 mg Documented by: Clonazepam (Clonazepam 0.5 Mg Tablet) 0.25 mg PO BID PRN PRN Reason: anxiety Divalproex Sodium (Divalproex Sodium 250 Mg Tablet.) 125 mg PO BEDTIME [facility] Last Admin: 11/05/21 22:55 Dose: 125 mg Documented by: Gabapentin (Gabapentin 100 Mg Capsule) 100 mg PO TID PRN PRN Reason: Anxiety Hydroxyzine HCl (Hydroxyzine Hcl 25 Mg Tablet) 25 mg PO BEDTIME PRN PRN Reason: Anxiety Magnesium Hydroxide (Milk Of Magnesia 30 Ml Oral.Susp) 30 ml PO DAILY PRN PRN Reason: Constipation Melatonin (Melatonin 3 Mg Tablet) 9 mg PO BEDTIME PRN PRN Reason: insomnia Last Admin: 11/05/21 22:55 Dose: 9 mg Documented by: Multivitamins/Vitamin C (Multivitamin Tablet) 1 tab PO DAILY [facility] Last Admin: 11/06/21 09:01 Dose: 1 tab Documented by: Olanzapine (Olanzapine 5 Mg Tablet) 5 mg PO Q4H PRN PRN Reason: adri, agitation Trazodone HCl (Trazodone Hcl 50 Mg Tablet) 50 mg PO BEDTIME PRN PRN Reason: Insomnia Vitamin D (Cholecalciferol (Vitamin D3) 25 Mcg Tablet) 25 mcg PO DAILY [facility] Last Admin: 11/06/21 09:01 Dose: 25 mcg Documented by: Allergies Allergies Allergy/AdvReac Type Severity Reaction Status Date / Time lamotrigine [From Lamictal] Allergy Severe Rash Verified 11/03/21 15:52 Assessment & Plan Assessment & Plan (1) Mixed bipolar disorder: Status: Acute Code(s): F31.60 - Bipolar disorder, current episode mixed, unspecified Plan 36 yo male, hx of bipolar disorder, diagnosed in 2020 with mixed features. Due to manic symptoms, pt lost control of spending and lost his business, home and status in his [place] community. As a result he reports SI with plans, intent. He has had several trials in the past and is hesitant to re-trial, but agrees. Plan: Discontinue Adderall, Latuda, [place] (not taking it he states) Depakote 250 mg bid Olanzapine 5 mg bid and prn Stabilize mood, thought process, then re-evaluate depression Collateral contacts with family, OP team Referral to [facility] Assist with networking pt with his N team to complete disability application. MVI i tab daily Vitamin D 1 tab daily 11/04/21: Discontinue scheduled Olanzapine, continue prn Olanzapine. Change Depakote to 125 mg hs-to begin tonight Wellbutrin 75 mg a.m. 11/05/21 Continue current regime 11/06/21 Continue current regime I spent minutes with the patient and/or on the patient floor today, greater than?50% of which was spent counseling/coordinating care. Patient educated on: medication risk/benefits and therapeutic strategies Informed Consent: understands and further education needed Reason for contiued inpatient stay Substantial Risk for: harm to self, inability to function and rapid decompensation
[2021-11-06 18:00] VITALS: BP 123/76; PULSE 82
[2021-11-06] MEDS: Divalproex Sodium 250 MG TABLET.DR 125 MG PO (21:38)
[2021-11-06] MEDS: Melatonin 3 MG TABLET 9 MG PO (21:38)
[2021-11-07 06:42] VITALS: BP 121/86; PULSE 58; RESP 18; TEMP 36.6; O2SAT 99
[2021-11-07] MEDS: buPROPion HCL 75 MG TABLET PO (08:43)
[2021-11-07] MEDS: Multivitamin TABLET 1 TAB PO (08:43)
[2021-11-07] MEDS: Cholecalciferol (Vitamin D3) 25 MCG TABLET PO (08:43)
[2021-11-07] MEDS: clonazePAM 0.5 MG TABLET 0.25 MG PO (15:54)
[2021-11-07 18:00] VITALS: BP 118/78; PULSE 62; RESP 16
--- NOTE | 2021-11-07 18:02 | HO.PSYCHPN ---
Subjective Subjective Date of Service: 11/07/21 Reason For Visit: Bipolar disorder, depressed Subjective Notes: Conditional Voluntary Healthcare Proxy: No Guardianship: No Medical Problems Affecting Mental Status: No Interim History: Tolerating medications. Discussed options for mood stabilization-pt will trial Abilify Ready to titrate Wellbutrin Discussed his lack of self care [employer]-caffeine intoxication to keep himself going-considering how many of sx he self-induced by poor self care. Tracy Riggins [facility] has researched pt's SSI application and it is on file/pending. Pt believes they may need more information. Team will continue research. Medication Compliance: Yes Side effects from medications: No Attending Groups: Yes Review of Systems Acute medical concerns: No Medical Review of Systems: unchanged Review of Systems Reports behavioral changes Psychiatric: Reports anxiety, Reports behavioral changes, Reports depression, Reports hopelessness, Reports mood swings and Reports suicidal ideation (decreasing) Mental Status Exam Mental Status Exam Patient Appearance: Appropriate Patient Orientation: Person, Place, Time and Situation Level of Consciousness: Alert Patient Behavior: Talkative, Anxious, Fearful, Resistive to Care, Distractible, Good Eye Contact and Impulsive Mood Description: Suspicious, Withdrawn, Depressed, Fearful, Anxious, Sad, Nervous, Apprehensive and Expansive Affect Description: Labile Patient Cognition Impaired: No Ability to Follow Directions: Good Speech Pattern: Spontaneous Speech Memory Description: Intact Perceptual Disturbances: Depersonalization and Derealization Thought Process: Rumination Thought Content: positive for [place], positive for Obsessional Thoughts, positive for Circumstantial, positive for Perseveration, positive for Preoccupation and positive for Suicidal Ideation Depressive Symptoms: Increased Anxiety, Increased Irritability, Changes in Appetite, Crying Spells, Significant Weight Loss, Loss of Int. in Activity, Feelings of Worthlessness, Hopelessness, Isolating-Friends/Family, Feelings of Guilt, Unhappiness, Increased Fatigue, Thoughts of /Suicide, Low Self Esteem, Loss of Energy and Difficulty Concentrating Abnormal Motor Activity Signs and Symptoms: Restlessness Judgement: Poor Diagnostics Vital Signs (24Hr): Vital Signs - 24 hr 11/07/21 06:42 Temperature 97.9 F Pulse Rate 58 Respiratory Rate 18 Blood Pressure 121/86 Pulse Oximetry 99 Oxygen Delivery Method Room Air BMI result Body Mass Index 25.1 Labs Results: 11/01/21 20:20 11/01/21 20:20 Medications Medications Current Medications Acetaminophen (Acetaminophen 325 Mg Tablet) 650 mg PO Q6H PRN PRN Reason: Headache/Pain Mild Scale (1-3) Al Hydroxide/Mg Hydroxide (Magnesium Hydrox/Alum Hydrox 30 Ml Oral.Susp) 30 ml PO Q6H PRN PRN Reason: Heartburn/Nausea Bupropion HCl (Bupropion Hcl 75 Mg Tablet) 75 mg PO DAILY [facility] Last Admin: 11/07/21 08:43 Dose: 75 mg Clonazepam (Clonazepam 0.5 Mg Tablet) 0.25 mg PO BID PRN PRN Reason: anxiety Last Admin: 11/07/21 15:54 Dose: 0.25 mg Divalproex Sodium (Divalproex Sodium 250 Mg Tablet.Dr) 125 mg PO BEDTIME [facility] Last Admin: 11/06/21 21:38 Dose: 125 mg Gabapentin (Gabapentin 100 Mg Capsule) 100 mg PO TID PRN PRN Reason: Anxiety Hydroxyzine HCl (Hydroxyzine Hcl 25 Mg Tablet) 25 mg PO BEDTIME PRN PRN Reason: Anxiety Magnesium Hydroxide (Milk Of Magnesia 30 Ml Oral.Susp) 30 ml PO DAILY PRN PRN Reason: Constipation Melatonin (Melatonin 3 Mg Tablet) 9 mg PO BEDTIME PRN PRN Reason: insomnia Last Admin: 11/06/21 21:38 Dose: 9 mg Multivitamins/Vitamin C (Multivitamin Tablet) 1 tab PO DAILY [facility] Last Admin: 11/07/21 08:43 Dose: 1 tab Olanzapine (Olanzapine 5 Mg Tablet) 5 mg PO Q4H PRN PRN Reason: adri, agitation Trazodone HCl (Trazodone Hcl 50 Mg Tablet) 50 mg PO BEDTIME PRN PRN Reason: Insomnia Vitamin D (Cholecalciferol (Vitamin D3) 25 Mcg Tablet) 25 mcg PO DAILY [facility] Last Admin: 11/07/21 08:43 Dose: 25 mcg Allergies Allergies Allergy/AdvReac Type Severity Reaction Status Date / Time lamotrigine [From Lamictal] Allergy Severe Rash Verified 11/03/21 15:52 Assessment & Plan Assessment & Plan (1) Mixed bipolar disorder: Status: Acute Code(s): F31.60 - Bipolar disorder, current episode mixed, unspecified Plan 36 yo male, hx of bipolar disorder, diagnosed in 2020 with mixed features. Due to manic symptoms, pt lost control of spending and lost his business, home and status in his [place] community. As a result he reports SI with plans, intent. He has had several trials in the past and is hesitant to re-trial, but agrees. Plan: Discontinue Adderall, Latuda, [place] (not taking it he states) Depakote 250 mg bid Olanzapine 5 mg bid and prn Stabilize mood, thought process, then re-evaluate depression Collateral contacts with family, OP team Referral to [facility] Assist with networking pt with his N team to complete disability application. MVI i tab daily Vitamin D 1 tab daily 11/04/21: Discontinue scheduled Olanzapine, continue prn Olanzapine. Change Depakote to 125 mg hs-to begin tonight Wellbutrin 75 mg a.m. 11/05/21 Continue current regime 11/06/21 Continue current regime 11/07/21 Increase Wellbutrin to 150 mg XL a.m. Abilify 1 mg HS I spent minutes with the patient and/or on the patient floor today, greater than?50% of which was spent counseling/coordinating care. Patient educated on: diagnosis, medication risk/benefits and therapeutic strategies Informed Consent: further education needed Reason for contiued inpatient stay Substantial Risk for: harm to self, inability to function and rapid decompensation
[2021-11-07] MEDS: Melatonin 3 MG TABLET 9 MG PO (21:51)
[2021-11-07] MEDS: ARIPiprazole 2 MG TABLET 1 MG PO (21:51)
[2021-11-08 06:47] VITALS: BP 108/78; PULSE 93; RESP 16; TEMP 36.5; O2SAT 97
[2021-11-08] MEDS: Cholecalciferol (Vitamin D3) 25 MCG TABLET PO (09:18)
[2021-11-08] MEDS: buPROPion HCl XL 150 MG TAB.ER.24H PO (09:18)
[2021-11-08] MEDS: Multivitamin TABLET 1 TAB PO (09:18)
[2021-11-08 14:26] VITALS: BMI 26.8
--- NOTE | 2021-11-08 14:46 | P.PNPSI_ITS ---
Subjective Subjective Date of Service: 11/08/21 Reason For Visit: Bipolar disorder, depressed Subjective Notes: Conditional Voluntary Healthcare Proxy: No Guardianship: No Medical Problems Affecting Mental Status: No Interim History: Discussed depressive sx, worry he will never recover. Discussed loss of father, brother from drug OD who acted as his father growing up and anger with mother for encouraging his dependence and instilling fear that all he would try he would fail and be harmed. Tolerating meds, no sexual SE, however not much efficacy at this time. Medication Compliance: Yes Side effects from medications: No Attending Groups: Yes Review of Systems Acute medical concerns: No Medical Review of Systems: unchanged Review of Systems Reports behavioral changes Psychiatric: Reports anxiety, Reports behavioral changes, Reports depression, Reports hopelessness, Reports mood swings and Reports suicidal ideation (decreasing) Mental Status Exam Mental Status Exam Patient Appearance: Appropriate Patient Orientation: Person, Place, Time and Situation Level of Consciousness: Alert Patient Behavior: Talkative, Anxious, Fearful, Resistive to Care, Distractible, Good Eye Contact and Impulsive Mood Description: Suspicious, Withdrawn, Depressed, Fearful, Anxious, Sad, Nervous, Apprehensive and Expansive Affect Description: Labile Patient Cognition Impaired: No Ability to Follow Directions: Good Speech Pattern: Spontaneous Speech Memory Description: Intact Perceptual Disturbances: Depersonalization and Derealization Thought Process: Rumination Thought Content: positive for [place], positive for Obsessional Thoughts, positive for Circumstantial, positive for Perseveration, positive for Preoccupation and positive for Suicidal Ideation Depressive Symptoms: Increased Anxiety, Increased Irritability, Changes in Appetite, Crying Spells, Significant Weight Loss, Loss of Int. in Activity, Feelings of Worthlessness, Hopelessness, Isolating-Friends/Family, Feelings of Guilt, Unhappiness, Increased Fatigue, Thoughts of /Suicide, Low Self Esteem, Loss of Energy and Difficulty Concentrating Abnormal Motor Activity Signs and Symptoms: Restlessness Judgement: Poor Diagnostics Vital Signs (24Hr): Vital Signs - 24 hr 11/07/21 18:00 11/08/21 06:47 Temperature 97.7 F Pulse Rate 62 93 Respiratory Rate 16 16 Blood Pressure 118/78 108/78 Pulse Oximetry 97 Oxygen Delivery Method Room Air BMI result Body Mass Index 26.8 Labs Results: 11/01/21 20:20 11/01/21 20:20 Medications Medications Current Medications Acetaminophen (Acetaminophen 325 Mg Tablet) 650 mg PO Q6H PRN PRN Reason: Headache/Pain Mild Scale (1-3) Al Hydroxide/Mg Hydroxide (Magnesium Hydrox/Alum Hydrox 30 Ml Oral.Susp) 30 ml PO Q6H PRN PRN Reason: Heartburn/Nausea Aripiprazole (Aripiprazole 2 Mg Tablet) 1 mg PO BEDTIME [facility] Last Admin: 11/07/21 21:51 Dose: 1 mg Bupropion HCl (Bupropion Hcl Xl 150 Mg Tab.Er.24h) 150 mg PO DAILY [facility] Last Admin: 11/08/21 09:18 Dose: 150 mg Clonazepam (Clonazepam 0.5 Mg Tablet) 0.25 mg PO BID PRN PRN Reason: anxiety Last Admin: 11/07/21 15:54 Dose: 0.25 mg Gabapentin (Gabapentin 100 Mg Capsule) 100 mg PO TID PRN PRN Reason: Anxiety Hydroxyzine HCl (Hydroxyzine Hcl 25 Mg Tablet) 25 mg PO BEDTIME PRN PRN Reason: Anxiety Magnesium Hydroxide (Milk Of Magnesia 30 Ml Oral.Susp) 30 ml PO DAILY PRN PRN Reason: Constipation Melatonin (Melatonin 3 Mg Tablet) 9 mg PO BEDTIME PRN PRN Reason: insomnia Last Admin: 11/07/21 21:51 Dose: 9 mg Multivitamins/Vitamin C (Multivitamin Tablet) 1 tab PO DAILY [facility] Last Admin: 11/08/21 09:18 Dose: 1 tab Trazodone HCl (Trazodone Hcl 50 Mg Tablet) 50 mg PO BEDTIME PRN PRN Reason: Insomnia Vitamin D (Cholecalciferol (Vitamin D3) 25 Mcg Tablet) 25 mcg PO DAILY [facility] Last Admin: 11/08/21 09:18 Dose: 25 mcg Allergies Allergies Allergy/AdvReac Type Severity Reaction Status Date / Time lamotrigine [From Lamictal] Allergy Severe Rash Verified 11/03/21 15:52 Assessment & Plan Assessment & Plan (1) Mixed bipolar disorder: Status: Acute Code(s): F31.60 - Bipolar disorder, current episode mixed, unspecified Plan 36 yo male, hx of bipolar disorder, diagnosed in 2020 with mixed features. Due to manic symptoms, pt lost control of spending and lost his business, home and status in his [place] community. As a result he reports SI with plans, intent. He has had several trials in the past and is hesitant to re-trial, but agrees. Plan: Discontinue Adderall, Latuda, [place] (not taking it he states) Depakote 250 mg bid Olanzapine 5 mg bid and prn Stabilize mood, thought process, then re-evaluate depression Collateral contacts with family, OP team Referral to [facility] Assist with networking pt with his N team to complete disability application. MVI i tab daily Vitamin D 1 tab daily 11/04/21: Discontinue scheduled Olanzapine, continue prn Olanzapine. Change Depakote to 125 mg hs-to begin tonight Wellbutrin 75 mg a.m. 11/05/21 Continue current regime 11/06/21 Continue current regime 11/07/21 Increase Wellbutrin to 150 mg XL a.m. Abilify 1 mg HS 11/08/21 Continue current regime I spent minutes with the patient and/or on the patient floor today, greater than?50% of which was spent counseling/coordinating care. Patient educated on: diagnosis, medication risk/benefits and therapeutic strategies Informed Consent: understands and further education needed Reason for contiued inpatient stay Substantial Risk for: harm to self, inability to function and rapid decompensati on
[2021-11-08 16:26] VITALS: BP 128/95; PULSE 99
[2021-11-08] MEDS: ARIPiprazole 2 MG TABLET 1 MG PO (21:01)
[2021-11-08] MEDS: Melatonin 3 MG TABLET 9 MG PO (21:02)
[2021-11-09] MEDS: hydrOXYzine HCL 25 MG TABLET PO (04:32)
[2021-11-09 06:00] VITALS: BP 130/74; PULSE 51; RESP 16; TEMP 36.4; O2SAT 99
[2021-11-09] MEDS: Cholecalciferol (Vitamin D3) 25 MCG TABLET PO (09:37)
[2021-11-09] MEDS: Multivitamin TABLET 1 TAB PO (09:37)
[2021-11-09] MEDS: buPROPion HCl XL 150 MG TAB.ER.24H PO (09:37)
[2021-11-09 16:58] VITALS: BP 133/86; PULSE 106
--- NOTE | 2021-11-09 17:40 | P.PNPSI_ITS ---
Subjective Subjective Date of Service: 11/09/21 Reason For Visit: Bipolar disorder, depressed Interim History: Patient seen and discussed with team. Patient evaluated today and upon interview he reports he filled out SSI paperwork, says he is not the type of tyrone to be on social security. Feels he has lost a lot due to his depression. Says As of now, im still very depressed, sleeping until 1pm. Says he feels activated on abilify, cant sleep. In the milieu, patient is safe but isolative in behavior. Denies SI/SIB/HI upon inquiry. Denies irritability or assaultive ideation. Says he feels safe. Medication Compliance: Yes Side effects from medications: No Attending Groups: Yes Review of Systems Acute medical concerns: No Medical Review of Systems: unchanged Mental Status Exam Mental Status Exam Narrative: Patient Appearance: Appropriate Patient Orientation: Person, Place, Time and Situation Level of Consciousness: Alert Patient Behavior: Talkative, Anxious, Fearful, Resistive to Care, Distractible, Good Eye Contact and Impulsive Mood Description: Suspicious, Withdrawn, Depressed, Fearful, Anxious, Sad, Nervous, Apprehensive and Expansive Affect Description: Labile Patient Cognition Impaired: No Ability to Follow Directions: Good Speech Pattern: Spontaneous Speech Memory Description: Intact Perceptual Disturbances: Depersonalization and Derealization Thought Process: Rumination Thought Content: positive for [place], positive for Obsessional Thoughts, positive for Circumstantial, positive for Perseveration, positive for Preoccupation and positive for Suicidal Ideation Depressive Symptoms: Increased Anxiety, Increased Irritability, Changes in Appetite, Crying Spells, Significant Weight Loss, Loss of Int. in Activity, Feelings of Worthlessness, Hopelessness, Isolating-Friends/Family, Feelings of Guilt, Unhappiness, Increased Fatigue, Thoughts of /Suicide, Low Self Esteem, Loss of Energy and Difficulty Concentrating Abnormal Motor Activity Signs and Symptoms: Restlessness Judgment: Poor Diagnostics Vital Signs (24Hr): Vital Signs - 24 hr 11/09/21 06:00 11/09/21 16:58 Temperature 97.5 F Pulse Rate 51 106 H Respiratory Rate 16 Blood Pressure 130/74 133/86 Pulse Oximetry 99 Oxygen Delivery Method Room Air BMI result Body Mass Index 26.8 Labs Results: 11/01/21 20:20 11/01/21 20:20 Medications Medications Current Medications Acetaminophen (Acetaminophen 325 Mg Tablet) 650 mg PO Q6H PRN PRN Reason: Headache/Pain Mild Scale (1-3) Al Hydroxide/Mg Hydroxide (Magnesium Hydrox/Alum Hydrox 30 Ml Oral.Susp) 30 ml PO Q6H PRN PRN Reason: Heartburn/Nausea Aripiprazole (Aripiprazole 2 Mg Tablet) 1 mg PO BEDTIME [facility] Last Admin: 11/08/21 21:01 Dose: 1 mg Bupropion HCl (Bupropion Hcl Xl 150 Mg Tab.Er.24h) 150 mg PO DAILY [facility] Last Admin: 11/09/21 09:37 Dose: 150 mg Clonazepam (Clonazepam 0.5 Mg Tablet) 0.25 mg PO BID PRN PRN Reason: anxiety Last Admin: 11/07/21 15:54 Dose: 0.25 mg Gabapentin (Gabapentin 100 Mg Capsule) 100 mg PO TID PRN PRN Reason: Anxiety Hydroxyzine HCl (Hydroxyzine Hcl 25 Mg Tablet) 25 mg PO BEDTIME PRN PRN Reason: Anxiety Last Admin: 11/09/21 04:32 Dose: 25 mg Magnesium Hydroxide (Milk Of Magnesia 30 Ml Oral.Susp) 30 ml PO DAILY PRN PRN Reason: Constipation Melatonin (Melatonin 3 Mg Tablet) 9 mg PO BEDTIME PRN PRN Reason: insomnia Last Admin: 11/08/21 21:02 Dose: 9 mg Multivitamins/Vitamin C (Multivitamin Tablet) 1 tab PO DAILY [facility] Last Admin: 11/09/21 09:37 Dose: 1 tab Trazodone HCl (Trazodone Hcl 50 Mg Tablet) 50 mg PO BEDTIME PRN PRN Reason: Insomnia Vitamin D (Cholecalciferol (Vitamin D3) 25 Mcg Tablet) 25 mcg PO DAILY [facility] Last Admin: 11/09/21 09:37 Dose: 25 mcg Allergies Allergies Allergy/AdvReac Type Severity Reaction Status Date / Time lamotrigine [From Lamictal] Allergy Severe Rash Verified 11/03/21 15:52 Assessment & Plan Assessment & Plan (1) Mixed bipolar disorder: Status: Acute Code(s): F31.60 - Bipolar disorder, current episode mixed, unspecified Plan 36 yo male, hx of bipolar disorder, diagnosed in 2020 with mixed features. Due to manic symptoms, pt lost control of spending and lost his business, home and status in his [place] community. As a result he reports SI with plans, intent. He has had several trials in the past and is hesitant to re-trial, but agrees. Plan: Discontinue Adderall, Latuda, [place] (not taking it he states) Depakote 250 mg bid Olanzapine 5 mg bid and prn Stabilize mood, thought process, then re-evaluate depression Collateral contacts with family, OP team Referral to [facility] Assist with networking pt with his N team to complete disability application. MVI i tab daily Vitamin D 1 tab daily 11/04/21: Discontinue scheduled Olanzapine, continue prn Olanzapine. Change Depakote to 125 mg hs-to begin tonight Wellbutrin 75 mg a.m. 11/05/21 Continue current regime 11/06/21 Continue current regime 11/07/21 Increase Wellbutrin to 150 mg XL a.m. Abilify 1 mg HS 11/08/21 Continue current regime 11/09/21 Increase abilify to 2 mg and move to AM I spent minutes with the patient and/or on the patient floor today, greater than?50% of which was spent counseling/coordinating care. Patient educated on: medication risk/benefits Reason for contiued inpatient stay Substantial Risk for: harm to self and med/psych decompensation
[2021-11-09] MEDS: Melatonin 3 MG TABLET 9 MG PO (22:01)
[2021-11-10 06:00] VITALS: BP 111/82; PULSE 95; RESP 16; TEMP 36.6; O2SAT 99
[2021-11-10] MEDS: Multivitamin TABLET 1 TAB PO (09:28)
[2021-11-10] MEDS: buPROPion HCl XL 150 MG TAB.ER.24H PO (09:28)
[2021-11-10] MEDS: Cholecalciferol (Vitamin D3) 25 MCG TABLET PO (09:28)
[2021-11-10] MEDS: ARIPiprazole 2 MG TABLET PO (09:28)
--- NOTE | 2021-11-10 14:52 | PC.NURSE ---
signed 3 day up on 11/14. , SW, UR aware.
--- NOTE | 2021-11-10 15:16 | HO.PSYCHPN ---
Subjective Subjective Date of Service: 11/10/21 Reason For Visit: Bipolar disorder, depressed Interim History: Patient seen. He continues depressed, helpless and hopeless. He is frustrated that it's taking multiple medication adjustments, and he still isn't feeling his depression lifting. He is disappointed and despondent. Tolerating meds, no sexual SE, however not much efficacy at this time. He has no side effects with current medications. He agrees with [facility] Review of Systems Review of Systems Constitutional: No Fever, No Chills,No Fatigue, No Malaise ENT/Mouth: No Ear Pain, No Nasal Congestion, No sore throat, No Rhinorrhea, No Swallowing Difficulty Eyes: No Eye Pain, No Swelling, No Redness Cardiovascular: No Chest Pain, No SOB, No Edema, No Palpitations Respiratory: No Cough, No Sputum, No Dyspnea Gastrointestinal: No Nausea, No Vomiting, No Diarrhea, No Constipation, No Abdominal pain Genitourinary: No Dysuria, No Urinary Frequency, No Hematuria, No Flank Pain Musculoskeletal: No joint pain, No Myalgias, No Joint Swelling Skin: No Skin Lesions, No rash Neuro: + Weakness, No Numbness, No Paresthesias, No Loss of Consciousness, No Dizziness, No Headache Psych: No Anxiety/Panic, + Depression, + SI, No HI/AH/VH, + Social Issues Yes all other systems are reviewed and are negative Genitourinary: Reports change in libido Reports behavioral changes Psychiatric: Reports abnormal sleep pattern, Reports anxiety, Reports behavioral changes, Reports change in appetite, Reports change in libido, Reports depression, Reports difficulty concentrating, Reports hopelessness, Reports irritability, Reports anhedonia, Reports mood swings, Reports panic attacks and Reports suicidal ideation (decreasing) Endocrine: Reports change in libido Mental Status Exam Mental Status Exam Patient Appearance: Appropriate Patient Orientation: Person, Place, Time and Situation Level of Consciousness: Alert Patient Behavior: Talkative, Anxious, Fearful, Resistive to Care, Distractible, Good Eye Contact and Impulsive Mood Description: Suspicious, Withdrawn, Depressed, Fearful, Anxious, Sad, Nervous, Apprehensive and Expansive Affect Description: Depressed, Labile, Sad and Nervous Patient Cognition Impaired: No Ability to Follow Directions: Good Speech Pattern: Spontaneous Speech and Coherent Memory Description: Intact Hallucinations: None Delusions: Not Present Thought Process: Rumination Thought Content: positive for Intact, positive for Obsessional Thoughts and positive for Perseveration Depressive Symptoms: Increased Anxiety, Muscle Tension, Crying Spells, Feelings of Worthlessness, Hopelessness, Isolating-Friends/Family, Feelings of Guilt, Thoughts of /Suicide, Low Self Esteem and Loss of Energy Abnormal Motor Activity Signs and Symptoms: Restlessness Judgement: Fair Diagnostics Vital Signs (24Hr): Vital Signs - 24 hr 11/10/21 06:00 11/10/21 18:00 Temperature 97.8 F Pulse Rate 95 92 Respiratory Rate 16 18 Blood Pressure 111/82 127/87 Pulse Oximetry 99 97 Oxygen Delivery Method Room Air BMI result Body Mass Index 26.8 Labs Results: 11/01/21 20:20 11/01/21 20:20 Medications Medications Current Medications Acetaminophen (Acetaminophen 325 Mg Tablet) 650 mg PO Q6H PRN PRN Reason: Headache/Pain Mild Scale (1-3) Al Hydroxide/Mg Hydroxide (Magnesium Hydrox/Alum Hydrox 30 Ml Oral.Susp) 30 ml PO Q6H PRN PRN Reason: Heartburn/Nausea Aripiprazole (Aripiprazole 5 Mg Tablet) 5 mg PO DAILY [facility] Bupropion HCl (Bupropion Hcl Xl 150 Mg Tab.Er.24h) 150 mg PO DAILY [facility] Last Admin: 11/10/21 09:28 Dose: 150 mg Clonazepam (Clonazepam 0.5 Mg Tablet) 0.25 mg PO BID PRN PRN Reason: anxiety Last Admin: 11/10/21 15:20 Dose: 0.25 mg Gabapentin (Gabapentin 100 Mg Capsule) 100 mg PO TID PRN PRN Reason: Anxiety Hydroxyzine HCl (Hydroxyzine Hcl 25 Mg Tablet) 25 mg PO BEDTIME PRN PRN Reason: Anxiety Last Admin: 11/09/21 04:32 Dose: 25 mg Magnesium Hydroxide (Milk Of Magnesia 30 Ml Oral.Susp) 30 ml PO DAILY PRN PRN Reason: Constipation Melatonin (Melatonin 3 Mg Tablet) 9 mg PO BEDTIME PRN PRN Reason: insomnia Last Admin: 11/10/21 21:29 Dose: 9 mg Multivitamins/Vitamin C (Multivitamin Tablet) 1 tab PO DAILY [facility] Last Admin: 11/10/21 09:28 Dose: 1 tab Trazodone HCl (Trazodone Hcl 50 Mg Tablet) 50 mg PO BEDTIME PRN PRN Reason: Insomnia Vitamin D (Cholecalciferol (Vitamin D3) 25 Mcg Tablet) 25 mcg PO DAILY [facility] Last Admin: 11/10/21 09:28 Dose: 25 mcg Allergies Allergies Allergy/AdvReac Type Severity Reaction Status Date / Time lamotrigine [From Lamictal] Allergy Severe Rash Verified 11/03/21 15:52 Assessment & Plan Assessment & Plan (1) Mixed bipolar disorder: Status: Acute Code(s): F31.60 - Bipolar disorder, current episode mixed, unspecified Plan 36 yo male, hx of bipolar disorder, diagnosed in 2020 with mixed features. Due to manic symptoms, pt lost control of spending and lost his business, home and status in his [employer] community. As a result he reports SI with plans, intent. He has had several trials in the past and is hesitant to re-trial, but agrees. Plan: Discontinue Adderall, Latuda, [place] (not taking it he states) Depakote 250 mg bid Olanzapine 5 mg bid and prn Stabilize mood, thought process, then re-evaluate depression Collateral contacts with family, OP team Referral to [facility] Assist with networking pt with his N team to complete disability application. MVI i tab daily Vitamin D 1 tab daily 11/04/21: Discontinue scheduled Olanzapine, continue prn Olanzapine. Change Depakote to 125 mg hs-to begin tonight Wellbutrin 75 mg a.m. 11/05/21 Continue current regime 11/06/21 Continue current regime 11/07/21 Increase Wellbutrin to 150 mg XL a.m. Abilify 1 mg HS 11/08/21 Continue current regime 11/10 Increase Abilify to 5 mg I spent minutes with the patient and/or on the patient floor today, greater than?50% of which was spent counseling/coordinating care. Reason for contiued inpatient stay Substantial Risk for: harm to self, inability to function and rapid decompensation
[2021-11-10] MEDS: clonazePAM 0.5 MG TABLET 0.25 MG PO (15:20)
[2021-11-10 18:00] VITALS: BP 127/87; PULSE 92; RESP 18; O2SAT 97
[2021-11-10] MEDS: Melatonin 3 MG TABLET 9 MG PO (21:29)
[2021-11-11 06:00] VITALS: BP 124/84; PULSE 86; RESP 16; TEMP 36.4; O2SAT 98
[2021-11-11] MEDS: Cholecalciferol (Vitamin D3) 25 MCG TABLET PO (09:25)
[2021-11-11] MEDS: Multivitamin TABLET 1 TAB PO (09:25)
[2021-11-11] MEDS: buPROPion HCl XL 150 MG TAB.ER.24H PO (09:25)
--- NOTE | 2021-11-11 12:31 | P.PNPSI_ITS ---
Subjective Subjective Date of Service: 11/11/21 Reason For Visit: Bipolar disorder, depressed Interim History: Patient seen and discussed with team. Patient Patient seen. He continues depressed, helpless and hopeless. He refused Abilify. He is focused on Abilify causing him to have sexual dysfunction. He says I can already feel it. He presents as intense and feeling desperate about his situation with a sense of urgency to make things better. Attempted to reframe expectations. He says he lost everything and feels his family are on zo brink of breaking up. He is frustrated that it's taking multiple medication adjustments, and he still isn't feeling his depression lifting. He is d isappointed and despondent. We discuss other options for treatment and what realistically could be helpful in a shorter period of time than medications (including ECT/Ketamine). Patient feels frustrated for getting multiple opinions from different psychiatrists. He had received Adderall from a psychiatrist and asks whether he can take it which he was advised against given his putative history of bipolarity. Denies SI/SIB/HI upon inquiry. After discussions about different mood stabilizers (he reported sexual dysfunction with Depakote and lithium) he now agrees to trial of Tegretol. Review of Systems Review of Systems Constitutional: No Fever, No Chills,No Fatigue, No Malaise ENT/Mouth: No Ear Pain, No Nasal Congestion, No sore throat, No Rhinorrhea, No Swallowing Difficulty Eyes: No Eye Pain, No Swelling, No Redness Cardiovascular: No Chest Pain, No SOB, No Edema, No Palpitations Respiratory: No Cough, No Sputum, No Dyspnea Gastrointestinal: No Nausea, No Vomiting, No Diarrhea, No Constipation, No Abdominal pain Genitourinary: No Dysuria, No Urinary Frequency, No Hematuria, No Flank Pain Musculoskeletal: No joint pain, No Myalgias, No Joint Swelling Skin: No Skin Lesions, No rash Neuro: + Weakness, No Numbness, No Paresthesias, No Loss of Consciousness, No Dizziness, No Headache Psych: No Anxiety/Panic, + Depression, + SI, No HI/AH/VH, + Social Issues Yes all other systems are reviewed and are negative Genitourinary: Reports change in libido Reports behavioral changes Psychiatric: Reports abnormal sleep pattern, Reports anxiety, Reports behavioral changes, Reports change in appetite, Reports change in libido, Reports depression, Reports difficulty concentrating, Reports hopelessness, Reports irritability, Reports anhedonia, Reports mood swings, Reports panic attacks and Reports suicidal ideation (decreasing) Endocrine: Reports change in libido Mental Status Exam Mental Status Exam Narrative: Patient Appearance: Appropriate Patient Orientation: Person, Place, Time and Situation Level of Consciousness: Alert Patient Behavior: Talkative, Anxious, Fearful, Distractible, Good Eye Contact and Impulsive Mood Description: Suspicious, Withdrawn, Depressed, Fearful, Anxious, Sad, Nervous, Apprehensive and Expansive Affect Description: Labile Patient Cognition Impaired: No Ability to Follow Directions: Good Speech Pattern: Spontaneous Speech Memory Description: Intact Perceptual Disturbances: no hallucinations Thought Process: Rumination Thought Content: positive for [place], positive for Obsessional Thoughts, posi tive for Circumstantial, positive for Perseveration, positive for Preoccupation and positive for Suicidal Ideation Depressive Symptoms: Increased Anxiety, Increased Irritability, Changes in Appetite, Crying Spells, Significant Weight Loss, Loss of Int. in Activity, Feelings of Worthlessness, Hopelessness, Isolating-Friends/Family, Feelings of Guilt, Unhappiness, Increased Fatigue, Thoughts of /Suicide, Low Self Esteem, Loss of Energy and Difficulty Concentrating Abnormal Motor Activity Signs and Symptoms: Restlessness Judgment: Poor Patient Appearance: Appropriate Patient Orientation: Person, Place, Time and Situation Level of Consciousness: Alert Patient Behavior: Talkative, Anxious, Fearful, Resistive to Care, Distractible, Good Eye Contact and Impulsive Mood Description: Suspicious, Withdrawn, Depressed, Fearful, Anxious, Sad, Nervous, Apprehensive and Expansive Affect Description: Depressed, Labile, Sad and Nervous Patient Cognition Impaired: No Ability to Follow Directions: Good Speech Pattern: Spontaneous Speech and Coherent Memory Description: Intact Diagnostics Vital Signs (24Hr): Vital Signs - 24 hr 11/10/21 18:00 11/11/21 06:00 Temperature 97.6 F Pulse Rate 92 86 Respiratory Rate 18 16 Blood Pressure 127/87 124/84 Pulse Oximetry 97 98 Oxygen Delivery Method Room Air BMI result Body Mass Index 26.8 Labs Results: 11/01/21 20:20 11/01/21 20:20 Medications Medications Current Medications Acetaminophen (Acetaminophen 325 Mg Tablet) 650 mg PO Q6H PRN PRN Reason: Headache/Pain Mild Scale (1-3) Al Hydroxide/Mg Hydroxide (Magnesium Hydrox/Alum Hydrox 30 Ml Oral.Susp) 30 ml PO Q6H PRN PRN Reason: Heartburn/Nausea Aripiprazole (Aripiprazole 5 Mg Tablet) 5 mg PO DAILY [facility] Last Admin: 11/11/21 09:46 Dose: Not Given Bupropion HCl (Bupropion Hcl Xl 150 Mg Tab.Er.24h) 150 mg PO DAILY [facility] Last Admin: 11/11/21 09:25 Dose: 150 mg Clonazepam (Clonazepam 0.5 Mg Tablet) 0.25 mg PO BID PRN PRN Reason: anxiety Last Admin: 11/10/21 15:20 Dose: 0.25 mg Gabapentin (Gabapentin 100 Mg Capsule) 100 mg PO TID PRN PRN Reason: Anxiety Hydroxyzine HCl (Hydroxyzine Hcl 25 Mg Tablet) 25 mg PO BEDTIME PRN PRN Reason: Anxiety Last Admin: 11/09/21 04:32 Dose: 25 mg Magnesium Hydroxide (Milk Of Magnesia 30 Ml Oral.Susp) 30 ml PO DAILY PRN PRN Reason: Constipation Melatonin (Melatonin 3 Mg Tablet) 9 mg PO BEDTIME PRN PRN Reason: insomnia Last Admin: 11/10/21 21:29 Dose: 9 mg Multivitamins/Vitamin C (Multivitamin Tablet) 1 tab PO DAILY [facility] Last Admin: 11/11/21 09:25 Dose: 1 tab Trazodone HCl (Trazodone Hcl 50 Mg Tablet) 50 mg PO BEDTIME PRN PRN Reason: Insomnia Vitamin D (Cholecalciferol (Vitamin D3) 25 Mcg Tablet) 25 mcg PO DAILY [facility] Last Admin: 11/11/21 09:25 Dose: 25 mcg Allergies Allergies Allergy/AdvReac Type Severity Reaction Status Date / Time lamotrigine [From Lamictal] Allergy Severe Rash Verified 11/03/21 15:52 Assessment & Plan Assessment & Plan (1) Mixed bipolar disorder: Status: Acute Code(s): F31.60 - Bipolar disorder, current episode mixed, unspecified Plan 36 yo male, hx of bipolar disorder, diagnosed in 2020 with mixed features. Due to manic symptoms, pt lost control of spending and lost his business, home and status in his [place] community. As a result he reports SI with plans, intent. He has had several trials in the past and is hesitant to re-trial, but agrees. Plan: Discontinue Adderall, Latuda, [place] (not taking it he states) Depakote 250 mg bid Olanzapine 5 mg bid and prn Stabilize mood, thought process, then re-evaluate depression Collateral contacts with family, OP team Referral to [facility] Assist with networking pt with his N team to complete disability application. MVI i tab daily Vitamin D 1 tab daily 11/04/21: Discontinue scheduled Olanzapine, continue prn Olanzapine. Change Depakote to 125 mg hs-to begin tonight Wellbutrin 75 mg a.m. 11/05/21 Continue current regime 11/06/21 Continue current regime 11/07/21 Increase Wellbutrin to 150 mg XL a.m. Abilify 1 mg HS 11/08/21 Continue current regime 11/09/21 Increase abilify to 2 mg and move to AM 11/11 DC Abilify. Tegretol trial. Consider ECT (or Ketamine referral/consultation?) I spent minutes with the patient and/or on the patient floor today, greater than?50% of which was spent counseling/coordinating care. Reason for contiued inpatient stay Substantial Risk for: harm to self, inability to function and rapid decompensation
[2021-11-11 16:01] VITALS: BP 141/87; PULSE 115
[2021-11-11] MEDS: carBAMazepine ER 200 MG TAB.ER.12H PO (22:05)
[2021-11-11] MEDS: Melatonin 3 MG TABLET 9 MG PO (22:05)
[2021-11-12 06:00] VITALS: BP 128/88; PULSE 98; RESP 16; TEMP 36.6; O2SAT 99
[2021-11-12] MEDS: buPROPion HCl XL 150 MG TAB.ER.24H PO (08:54)
[2021-11-12] MEDS: Multivitamin TABLET 1 TAB PO (08:54)
[2021-11-12] MEDS: Cholecalciferol (Vitamin D3) 25 MCG TABLET PO (08:54)
[2021-11-12] MEDS: Gabapentin 100 MG CAPSULE PO (15:26)
[2021-11-12 18:00] VITALS: BP 128/89; PULSE 85
--- NOTE | 2021-11-12 18:10 | HO.PSYCHPN ---
Subjective Subjective Date of Service: 11/12/21 Reason For Visit: Bipolar disorder, depressed Subjective Notes: Conditional Voluntary Healthcare Proxy: No Guardianship: No Medical Problems Affecting Mental Status: No Interim History: Struggling with medicine compliance-takes 1-2 doses, decides there are ED SE and stops. Education provided regarding allowing a trial-pt states he knows right away if something will cause a SE. Abilify, Tegretol stopped. Willing to re-trial Latuda Discussed ECT. Consult requested Wellbutrin he reports is tolerated and without adverse effect. TDN to 11/14. Planning a dicharge as his daughter will graduate from [employer] that evening. Missing his family. Denies SI, plan or intent, I am better than when I came in. Medication Compliance: Intermittent Side effects from medications: Yes (ED) Attending Groups: Yes Review of Systems Acute medical concerns: No Medical Review of Systems: unchanged Review of Systems Psychiatric: Reports anxiety, Reports depression, Reports irritability and Reports suicidal ideation (denies) Diagnostics Vital Signs (24Hr): Vital Signs - 24 hr 11/12/21 06:00 Temperature 97.9 F Pulse Rate 98 Respiratory Rate 16 Blood Pressure 128/88 Pulse Oximetry 99 BMI result Body Mass Index 26.8 Labs Results: 11/01/21 20:20 11/01/21 20:20 Medications Medications Current Medications Acetaminophen (Acetaminophen 325 Mg Tablet) 650 mg PO Q6H PRN PRN Reason: Headache/Pain Mild Scale (1-3) Al Hydroxide/Mg Hydroxide (Magnesium Hydrox/Alum Hydrox 30 Ml Oral.Susp) 30 ml PO Q6H PRN PRN Reason: Heartburn/Nausea Bupropion HCl (Bupropion Hcl Xl 150 Mg Tab.Er.24h) 150 mg PO DAILY [facility] Last Admin: 11/12/21 08:54 Dose: 150 mg Gabapentin (Gabapentin 100 Mg Capsule) 100 mg PO TID PRN PRN Reason: Anxiety Last Admin: 11/12/21 15:26 Dose: 100 mg Hydroxyzine HCl (Hydroxyzine Hcl 25 Mg Tablet) 25 mg PO BEDTIME PRN PRN Reason: Anxiety Last Admin: 11/09/21 04:32 Dose: 25 mg Lurasidone HCl (Lurasidone Hcl 40 Mg Tablet) 40 mg PO DAILY@1800 [facility] Magnesium Hydroxide (Milk Of Magnesia 30 Ml Oral.Susp) 30 ml PO DAILY PRN PRN Reason: Constipation Melatonin (Melatonin 3 Mg Tablet) 9 mg PO BEDTIME PRN PRN Reason: insomnia Last Admin: 11/11/21 22:05 Dose: 9 mg Multivitamins/Vitamin C (Multivitamin Tablet) 1 tab PO DAILY [facility] Last Admin: 11/12/21 08:54 Dose: 1 tab Trazodone HCl (Trazodone Hcl 50 Mg Tablet) 50 mg PO BEDTIME PRN PRN Reason: Insomnia Vitamin D (Cholecalciferol (Vitamin D3) 25 Mcg Tablet) 25 mcg PO DAILY [facility] Last Admin: 11/12/21 08:54 Dose: 25 mcg Allergies Allergies Allergy/AdvReac Type Severity Reaction Status Date / Time lamotrigine [From Lamictal] Allergy Severe Rash Verified 11/03/21 15:52 Assessment & Plan Assessment & Plan (1) Mixed bipolar disorder: Status: Acute Code(s): F31.60 - Bipolar disorder, current episode mixed, unspecified Plan 36 yo male, hx of bipolar disorder, diagnosed in 2020 with mixed features. Due to manic symptoms, pt lost control of spending and lost his business, home and status in his [employer] community. As a result he reports SI with plans, intent. He has had several trials in the past and is hesitant to re-trial, but agrees. Plan: Discontinue Adderall, Latuda, [place] (not taking it he states) Depakote 250 mg bid Olanzapine 5 mg bid and prn Stabilize mood, thought process, then re-evaluate depression Collateral contacts with family, OP team Referral to [facility] Assist with networking pt with his N team to complete disability application. MVI i tab daily Vitamin D 1 tab daily 11/04/21: Discontinue scheduled Olanzapine, continue prn Olanzapine. Change Depakote to 125 mg hs-to begin tonight Wellbutrin 75 mg a.m. 11/05/21 Continue current regime 11/06/21 Continue current regime 11/07/21 Increase Wellbutrin to 150 mg XL a.m. Abilify 1 mg HS 11/08/21 Continue current regime 11/09/21 Increase abilify to 2 mg and move to AM 11/11 DC Abilify. Tegretol trial. Consider ECT (or Ketamine referral/consultation?) 11/12. DC Tegretol. Latuda 40 mg with evening meal (re-trial) TDN to 11/14. I spent minutes with the patient and/or on the patient floor today, greater than?50% of which was spent counseling/coordinating care. Patient educated on: diagnosis, medication risk/benefits and therapeutic strategies Informed Consent: understands and further education needed Reason for contiued inpatient stay Substantial Risk for: rapid decompensation
[2021-11-12] MEDS: Lurasidone HCl 40 MG TABLET PO (19:01)
[2021-11-12] MEDS: Melatonin 3 MG TABLET 9 MG PO (21:22)
[2021-11-13] MEDS: Cholecalciferol (Vitamin D3) 25 MCG TABLET PO (09:08)
[2021-11-13] MEDS: buPROPion HCl XL 150 MG TAB.ER.24H PO (09:08)
[2021-11-13] MEDS: Multivitamin TABLET 1 TAB PO (09:08)
[2021-11-13 09:20] VITALS: BP 130/84; PULSE 87; TEMP 36.3; O2SAT 98
--- NOTE | 2021-11-13 16:02 | HO.PSYCHPN ---
Subjective Subjective Date of Service: 11/13/21 Reason For Visit: Bipolar disorder, depressed Subjective Notes: Conditional Voluntary Healthcare Proxy: No Guardianship: No Medical Problems Affecting Mental Status: No Interim History: Pt planning discharge 11/14. Continues to struggle with medications as he has concerns about SE-Thus far, Wellbutrin and Latuda are tolerated. Responds to support and education. Pt denies SI, plan or intent. He plans to attend his daughter's kindergarden graduation on 11/14. Discussed MRC and career interest inventory exercises. ECT consult pending should medications not be tolerated. Reports feeling relief as compared to admission. Encouraged to keep on a positive track. Medication Compliance: Yes Side effects from medications: No Attending Groups: Intermittent Review of Systems Acute medical concerns: No Medical Review of Systems: unchanged Review of Systems Psychiatric: Reports anxiety, Reports depression, Reports irritability and Reports suicidal ideation (denies) Mental Status Exam Mental Status Exam Patient Appearance: Well Grooomed Patient Orientation: Person, Place and Situation Level of Consciousness: Awake Patient Behavior: Cooperative Mood Description: Constricted Affect Description: Constricted Patient Cognition Impaired: No Ability to Follow Directions: Good Speech Pattern: Clear Hallucinations: None Delusions: Not Present Thought Process: Linear Thought Content: positive for Circumstantial Depressive Symptoms: Thoughts of /Suicide (denies SI plan or intent) Judgement: Fair Diagnostics Vital Signs (24Hr): Vital Signs - 24 hr 11/12/21 18:00 11/13/21 09:20 Temperature 97.4 F Pulse Rate 85 87 Blood Pressure 128/89 130/84 Pulse Oximetry 98 Oxygen Delivery Method Room Air BMI result Body Mass Index 26.8 Labs Results: 11/01/21 20:20 11/01/21 20:20 Medications Medications Current Medications Acetaminophen (Acetaminophen 325 Mg Tablet) 650 mg PO Q6H PRN PRN Reason: Headache/Pain Mild Scale (1-3) Al Hydroxide/Mg Hydroxide (Magnesium Hydrox/Alum Hydrox 30 Ml Oral.Susp) 30 ml PO Q6H PRN PRN Reason: Heartburn/Nausea Bupropion HCl (Bupropion Hcl Xl 150 Mg Tab.Er.24h) 150 mg PO DAILY [facility] Last Admin: 11/13/21 09:08 Dose: 150 mg Gabapentin (Gabapentin 100 Mg Capsule) 100 mg PO TID PRN PRN Reason: Anxiety Last Admin: 11/12/21 15:26 Dose: 100 mg Hydroxyzine HCl (Hydroxyzine Hcl 25 Mg Tablet) 25 mg PO BEDTIME PRN PRN Reason: Anxiety Last Admin: 11/09/21 04:32 Dose: 25 mg Lurasidone HCl (Lurasidone Hcl 40 Mg Tablet) 40 mg PO DAILY@1800 [facility] Last Admin: 11/12/21 19:01 Dose: 40 mg Magnesium Hydroxide (Milk Of Magnesia 30 Ml Oral.Susp) 30 ml PO DAILY PRN PRN Reason: Constipation Melatonin (Melatonin 3 Mg Tablet) 9 mg PO BEDTIME PRN PRN Reason: insomnia Last Admin: 11/12/21 21:22 Dose: 9 mg Multivitamins/Vitamin C (Multivitamin Tablet) 1 tab PO DAILY [facility] Last Admin: 11/13/21 09:08 Dose: 1 tab Trazodone HCl (Trazodone Hcl 50 Mg Tablet) 50 mg PO BEDTIME PRN PRN Reason: Insomnia Vitamin D (Cholecalciferol (Vitamin D3) 25 Mcg Tablet) 25 mcg PO DAILY [facility] Last Admin: 11/13/21 09:08 Dose: 25 mcg Allergies Allergies Allergy/AdvReac Type Severity Reaction Status Date / Time lamotrigine [From Lamictal] Allergy Severe Rash Verified 11/03/21 15:52 Assessment & Plan Assessment & Plan (1) Mixed bipolar disorder: Status: Acute Code(s): F31.60 - Bipolar disorder, current episode mixed, unspecified Plan 36 yo male, hx of bipolar disorder, diagnosed in 2020 with mixed features. Due to manic symptoms, pt lost control of spending and lost his business, home and status in his [place] community. As a result he reports SI with plans, intent. He has had several trials in the past and is hesitant to re-trial, but agrees. Plan: Discontinue Adderall, Latuda, [place] (not taking it he states) Depakote 250 mg bid Olanzapine 5 mg bid and prn Stabilize mood, thought process, then re-evaluate depression Collateral contacts with family, OP team Referral to [facility] Assist with networking pt with his N team to complete disability application. MVI i tab daily Vitamin D 1 tab daily 11/04/21: Discontinue scheduled Olanzapine, continue prn Olanzapine. Change Depakote to 125 mg hs-to begin tonight Wellbutrin 75 mg a.m. 11/05/21 Continue current regime 11/06/21 Continue current regime 11/07/21 Increase Wellbutrin to 150 mg XL a.m. Abilify 1 mg HS 11/08/21 Continue current regime 11/09/21 Increase abilify to 2 mg and move to AM 11/11 DC Abilify. Tegretol trial. Consider ECT (or Ketamine referral/consultation?) 11/12/21- Continue Wellbutrin, Latuda ECT Consult prior to discharge-pt would like information and will follow up as an out pt if he chooses this treatment. Discharge 11/14/21. I spent minutes with the patient and/or on the patient floor today, greater than?50% of which was spent counseling/coordinating care. Patient educated on: medication risk/benefits and therapeutic strategies Informed Consent: understands and further education needed Reason for contiued inpatient stay Substantial Risk for: stable for discharge
[2021-11-13 17:10] VITALS: BP 107/77; PULSE 87; TEMP 36.7; O2SAT 97
[2021-11-13] MEDS: Lurasidone HCl 40 MG TABLET PO (19:00)
[2021-11-13] MEDS: Melatonin 3 MG TABLET 9 MG PO (22:55)
[2021-11-14] MEDS: hydrOXYzine HCL 25 MG TABLET PO (04:42)
[2021-11-14 06:00] VITALS: BP 104/59; PULSE 56; TEMP 36.7; O2SAT 97
[2021-11-14] MEDS: Multivitamin TABLET 1 TAB PO (09:01)
[2021-11-14] MEDS: Cholecalciferol (Vitamin D3) 25 MCG TABLET PO (09:02)
[2021-11-14] MEDS: buPROPion HCl XL 150 MG TAB.ER.24H PO (09:02)
--- NOTE | 2021-11-14 12:10 | HO.ECTCONS ---
History of Present Illness General Data Date of Service: t Reason for consult: ECT assessment Requesting provider: Brenda Blackburn History of Present Illness the patient is a 36-year-old [place] descendant male, father of a minor child, employed, highly functional with a long history of bipolar disorder who was admitted into the facility for exacerbation of depressive episodes in the context of several psychosocial stressors. The patient reported several side effects with different medications and he asked about the possibility of ECT. The patient was said the bedside, he was scheduled to be discharged today. At this moment the patient adamantly denies psychotic symptoms, safety concerns or adri. He admits mild dysphoria and no side effects with the current medications. His main concern was regarding side effects related with his libido and sexual performance. On interview, it was clear that the patient was safe for discharge and he was very curious about treatment options such as ECT and TMS . I explained him that at this moment EMS is not an option because is for major depressive disorder not bipolar depression. Past Psychiatric History/Medication Trials: Please see past psychiatric history of the admission [facility] Family History: Bipolar-Father, Brother-homebound with severe illness Social History: , 2 children-son age 12 from a previous relationship who was adopted by pt's sister; daughter 5. Unemployed, seeking social security Trauma History: Losses Meds/Allergies Meds Home Medications Medication Instructions Recorded Confirmed Type clonazepam 0.5 mg tablet 1 tab PO BID PRN anxiety 11/01/21 11/01/21 History dextroamphetamine-amphetamine ER 1 cap PO DAILY PRN Anxiety 11/01/21 11/01/21 History 10 mg 24hr capsule,extend release (Adderall XR) gabapentin 100 mg capsule 1 cap PO NEEDED PRN Anxiety 11/01/21 11/01/21 History lithium carbonate 600 mg capsule 1 cap PO TID 11/01/21 11/01/21 History lurasidone 40 mg tablet (Latuda) 1 tab DAILY 11/01/21 11/01/21 History melatonin 10 mg capsule 1 tab PO BEDTIME PRN insomnia 11/01/21 11/01/21 History Allergies Allergies Allergy/AdvReac Type Severity Reaction Status Date / Time lamotrigine [From Lamictal] Allergy Severe Rash Verified 11/03/21 15:52 Mental Status Exam Mental Status Exam Patient Appearance: Well Grooomed Patient Orientation: Person, Place and Situation Level of Consciousness: Awake Patient Behavior: Cooperative Mood Description: Withdrawn Affect Description: Constricted Patient Cognition Impaired: No Ability to Follow Directions: Good Speech Pattern: Clear Hallucinations: None Delusions: Not Present Thought Process: Linear Thought Content: positive for Circumstantial Judgement: Fair Assessment & Plan Assessment & Plan (1) Mixed bipolar disorder: Status: Acute Code(s): F31.60 - Bipolar disorder, current episode mixed, unspecified Plan adult male with a history of bipolar depression who was admitted for exacerbation of symptoms of depression in the context of several losses and psychosocial stressors. Plan 1. Psycho education in to ECT was provided. 2. At this moment the patient was reluctant to go through this treatment. Even though that he has depressive symptoms, there is no evidence of suicidality or catatonia. 3. If the patient's depressive symptoms worsen it, he will be a candidate for ECT I spent ___20___ minutes with the patient and/or on the patient floor today, greater than?50% of which was spent counseling/coordinating care. Patient educated on: diagnosis and ECT Informed Consent: understands
--- NOTE | 2021-11-14 17:31 | PM.PSYDC ---
DS: Providers Provider Date of Service: 11/14/21 Date of admission: 11/02/21 16:33 Date of discharge: 11/14/21 Primary care physician: Frida Bui NP Admitting clinician: Brenda Blackburn Attending physician on admission: Alan Yu Consults: 11/12/21 18:02 Consult to Psychiatry Routine Consulting Provider: Kip Edouard Reason for consultation: ECT Consult for treatment Has provider been notified: Yes Attending physician on discharge: Alan Yu Discharging clinician: Brenda Blackburn DS: Diagnosis Discharge Diagnosis (1) Mixed bipolar disorder: Status: Acute DS: Medications Discharge Medications Home Medications: Previous Rx's Medication Instructions Recorded bupropion HCl 150 mg 24 hr tablet, 150 mg PO DAILY #30 tabs 11/13/21 extended release cholecalciferol (vitamin D3) 25 25 mcg PO DAILY #30 tabs 11/13/21 mcg (1,000 unit) tablet gabapentin 100 mg capsule 1 cap PO NEEDED PRN Anxiety #30 11/13/21 caps lurasidone 60 mg tablet (Latuda) 60 mg PO DAILY #30 tabs 11/13/21 melatonin 10 mg capsule 1 tab PO BEDTIME PRN insomnia #30 11/13/21 caps multivitamin (Daily-Vincent) 1 tab PO DAILY #30 tabs 11/13/21 Mental Status Exam Mental Status Exam Patient Appearance: Well Grooomed Patient Orientation: Person, Place and Situation Level of Consciousness: Awake Patient Behavior: Cooperative Mood Description: Constricted Affect Description: Constricted Patient Cognition Impaired: No Ability to Follow Directions: Good Speech Pattern: Clear Hallucinations: None Delusions: Not Present Thought Process: Linear Thought Content: positive for Circumstantial Depressive Symptoms: Thoughts of /Suicide (denies SI plan or intent) Judgement: Fair DS: Summary Hospital Course Hospital Course: Admission to adult psychiatry for exacerbation of symptoms of bipolar disorder, depressed along with situational crisis. 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 Medication trials for Angelika have been difficult, as he believes many precipitate erective dysfunction immediately upon taking them. 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 Adderall XR, Clonidine, Olanzapine, Vraylar, Valproate were discontinued. Wellbutrin, Klonopin prn, Melatonin, Gabapentin, Latuda were pt's choice to utilize for symptom mgt. Dr. Sears kindly completed an ECT consult with pt and he is considering this should medications not be effective or tolerated in the future. Angelika was able to utilize the milieu and team to process concerns and will discharge back to his family and begin to plan his next search for work. He has applied for social security, is aware of [facility], and is looking at different work options for his future. Time spent discussing smoking cessation with patient: 3 to 10 minutes Status at Discharge Functional status at discharge: independent ambulation Overall status at discharge: patient is progressing back to baseline Time Spent with Patient Time attestation: Total time spent providing and/or coordinating discharge services:45 Time spent: Greater than 30 minutes Discharge Plan Discharge Patient Disposition: Home, Self-Care Discharge Diagnosis: Mixed bipolar disorder-depressed Referrals: [employer] [Other] - 12/21/21 1:30 pm (You have a phone appointment with the [place] social security office on Friday12/21/21 at 1:30PM. They will contact you by phone that day for appointment on your cell phone# [phone]. Please refer to application checklist and information provided to you to assist you with the application and phone appointment on 12/21. ) Therapist: Connie Boland ([facility]) [Other] - 11/22/21 2:00 pm (In office/in person ) Psychiatrist: Letty Fuentes ([facility]) [Other] - 12/12/21 2:00 pm (*Telehealth- you will receive an email with instructions to download an breanna to use for appointments. You will also receive a link to join the appointment. ) Psychiatrist: eLtty Fuentes ([facility]) [Other] - 01/09/22 9:30 am (*Telehealth-you will be emailed a link to join your appointment, or she will contact your phone for appointment (whichever you decide with her after your first appointment) ) Employment/Training: [facility] [Other] - 1 Week (You can also apply for these services online at: https://www.[employer].gov/orgs/psbwskgcfipdq-hjhfsuugbdbdxr-cvrwzxfsjp *Click on [employer] Connect which will take you to the application* ) Frida Bui NP [Primary Care Provider] - 1 Week (PCP notified and states they will call patient with the follow up appointment when they have it available.) Discharge Medications: Discontinued clonazepam 0.5 mg tablet 1 tab PO BID PRN (Reason: anxiety) lithium carbonate 600 mg capsule 1 cap PO TID dextroamphetamine-amphetamine [Adderall XR] 10 mg capsule,extended release 24hr 1 cap PO DAILY PRN (Reason: Anxiety) gabapentin 100 mg capsule 1 cap PO NEEDED PRN (Reason: Anxiety) Latuda 40 mg tablet 1 tab DAILY melatonin 10 mg capsule 1 tab PO BEDTIME PRN (Reason: insomnia) No Action clonidine HCl 0.1 mg Tablet 0.1 mg PO Q4H PRN (Reason: anxiety) Qty: 60 0RF Protocol: Hold for SBP< HOLD for SBP < : 90 nicotine (polacrilex) 2 mg Gum 4 mg buccal Q2H PRN (Reason: Nicotine Cravings) Qty: 60 0RF clonazepam 0.5 mg Tablet 0.5 mg PO BID PRN (Reason: Anxiety) Qty: 14 4RF diphenhydramine HCl [Allergy Relief(diphenhydramin)] 25 mg Tablet 50 mg PO Q4H PRN (Reason: agitation) Qty: 120 0RF gabapentin 300 mg Capsule 300 mg PO TID PRN (Reason: anxiety) Qty: 90 0RF Vraylar 3 mg Capsule 3 mg PO DAILY Qty: 30 0RF melatonin 10 mg capsule 10 mg PO BEDTIME PRN (Reason: sleep) Qty: 30 0RF Discharge Orders: Discharge Order (Routine); Ordered 11/13/21 Ordered By: Brenda Blackburn Diet: Advance to usual diet Activity on Discharge: As tolerated Stand Alone Forms: Patient Portal Discharge page, Community Support Care Plan Goals: Mood stabilization Health Concerns: Mixed bipolar disorder-depressed Plan of Treatment: Take medications as directed Attend follow up appointments Call/Return as needed Crisis Team if needed [phone] Assessment: non-psychotic non-suicidal Patient Instructions: Bupropion (By mouth), Valproic Acid (By mouth) Discharge Date/Time: 11/14/21 15:39
== END 2021-11-14 15:39 | disposition home or self-care (01) | DRG 753 ==
LOC: HO.ED 11-02 16:47 → HO.PM5 11-02 16:57
PROVIDERS: Physician Assistant; Admitting Provider Psychiatry & Neurology Psychiatry; Emergency Provider Student in an Organized Health Care Education/Training Program; PCP Nurse Practitioner Family; Visit Provider Clinical Nurse Specialist Psychiatric/Mental Health, Adult
DX: F31.60 Bipolar disorder, current episode mixed, unspecified (principal); R45.851 Suicidal ideations; Z56.0 Unemployment, unspecified; Z20.822 Contact with and (suspected) exposure to COVID-19; Z88.8 Allergy status to other drugs, medicaments and biological substances; Z79.899 Other long term (current) drug therapy
CPT/HCPCS: 36415; 80048; 80061; 80076; 80143; 80179; 80307; 82077; 82607; 82746; 83036; 83735; 84439; 84443; 85025; 87635; 93005; 99285

== ENCOUNTER 2021-11-26 15:30 | Inpatient (IN) | payer MEDICAID, OTHER, SELFPAY ==
[2021-11-26 16:17] VITALS: BP 126/93; PULSE 63; RESP 18; TEMP 36.2; O2SAT 99; BMI 27.3
--- NOTE | 2021-11-26 16:49 | ED.PSYCH ---
HPI - Psych General Chief Complaint: Psychiatric Symptoms <Larissa MolinaDENIS smith - Last Filed: 11/26/21 17:43> Stated Complaint: psych. eval. <Larissa Veras DENIS Mo - Last Filed: 11/26/21 17:43> Time Seen by Provider: 11/26/21 16:47 <Larissa Veras DENIS Mo - Last Filed: 11/26/21 17:43> Source: patient <Larissa MoDENIS - Last Filed: 11/26/21 17:43> Mode of arrival: ambulatory <Larissa MolinaDENIS smith - Last Filed: 11/26/21 17:43> Limitations: no limitations <Larissa MolinaDENIS smith - Last Filed: 11/26/21 17:43> History of Present Illness HPI Narrative: Patient presents to the emergency department for evaluation of increasing depression, suicidal ideations without a specific plan. He states he was recently [place] 2 [place] [facility] [place] He states he was given new medications, but after being home for 2 days stop taking the medications as it is causing insomnia. He states that he was evaluated by his primary care doctor 4 days ago and was started on while are which she does feel is helping his symptoms somewhat, and isn't given him as much trouble eating. However he continues to be significantly depressed, feeling helpless and hopeless, feels as though he cannot provide for his family, he recently ?lost everything? about 7 months ago after having a panic attack and is selling office property. <Larissa Veras DENIS Mo - Last Filed: 11/26/21 17:43> Related Data Home Medications: Previous Rx's Medication Instructions Recorded bupropion HCl 150 mg 24 hr tablet, 150 mg PO DAILY #30 tabs 11/13/21 extended release cholecalciferol (vitamin D3) 25 25 mcg PO DAILY #30 tabs 11/13/21 mcg (1,000 unit) tablet gabapentin 100 mg capsule 1 cap PO NEEDED PRN Anxiety #30 11/13/21 caps lurasidone 60 mg tablet (Latuda) 60 mg PO DAILY #30 tabs 11/13/21 melatonin 10 mg capsule 1 tab PO BEDTIME PRN insomnia #30 11/13/21 caps multivitamin (Daily-Vincent) 1 tab PO DAILY #30 tabs 11/13/21 <Larissa Mo CNP - Last Filed: 11/26/21 17:43> Allergies/Adverse Reactions: Allergies Allergy/AdvReac Type Severity Reaction Status Date / Time lamotrigine [From Lamictal] Allergy Severe Rash Verified 11/03/21 15:52 <Larissa Mo CNP - Last Filed: 11/26/21 17:43> Review of Systems Review of Systems: Constitutional : No Fever, No Chills ENT/Mouth : No Ear Pain, No Nasal Congestion, No sore throat Eyes: No Eye Pain, No Swelling, No Redness Cardiovascular : No Chest Pain, No SOB Respiratory : No Cough, No Sputum, No Dyspnea Gastrointestinal : No Nausea, No Vomiting, No Diarrhea, No Hematochezia, No Melena Genitourinary : No Dysuria, No Urinary Frequency, No Hematuria Musculoskeletal : No Myalgias Skin : No Skin Lesions, No rash Neuro : No Weakness, No Numbness, No Paresthesias, No Dizziness, No Headache Psych : positive Anxiety, positive Depression, positive SI/HI Heme/Lymph: No Lymphadenopathy Endocrine : No Polyuria, No Polydipsia <Larissa Mo CNP - Last Filed: 11/26/21 17:43> Yes all other systems are reviewed and are negative <Larissa Mo CNP - Last Filed: 11/26/21 17:43> PMFSH Past Medical History Attestation statement: The following information was validated with the patient. <Larissa Mo CNP - Last Filed: 11/26/21 17:43> Source: old records reviewed <Larissa Mo CNP - Last Filed: 11/26/21 17:43> Social History Social History: Social History Household Members: None Housing: Apartment Do you presently have visiting nurse or other home services: No Alcohol intake: current Patient Tobacco Use Status: Never used Tobacco Advance Directives: No Advance Directives Information Provided: No service: No Sexual orientation: Straight/Heterosexual <Larissa Mo CNP - Last Filed: 11/26/21 17:43> Physical Exam Vital Signs: Vital Signs: Last Vital Signs Temp 97.1 F 11/26/21 16:17 Pulse 63 11/26/21 16:17 Resp 18 11/26/21 16:17 BP 126/93 H 11/26/21 16:17 Pulse Ox 99 11/26/21 16:17 O2 Del Method 11/26/21 16:17 BMI result Body Mass Index 27.3 Vital signs have been reviewed as normal and appeared to be correct. Blood pressure normal.? Heart rate normal.? Respiration rate normal. Temperature normal.? Oxygen saturation normal. <Larissa Mo CNP - Last Filed: 11/26/21 17:43> Vital Signs: Last Vital Signs Temp 97.1 F 11/26/21 16:17 Pulse 63 11/26/21 16:17 Resp 18 11/26/21 16:17 BP 126/93 H 11/26/21 16:17 Pulse Ox 99 11/26/21 16:17 O2 Del Method 11/26/21 16:17 BMI result Body Mass Index 27.3 <ABDI Sherwood - Last Filed: 11/26/21 20:51> Appearance: Alert.?Oriented to person, place and time. No acute distress.?Normal affect. Eyes: Pupils equal, round and reactive to light.? ENT: Pharynx normal.?? Neck: Normal inspection.? Neck supple.?? CVS: Heart sounds normal. Normal heart rate and rhythm.? Pulses normal.?? Respiratory: No respiratory distress.? Lung sounds clear to auscultation bilaterally?? Abdomen: Soft and non-tender. Normoactive bowel sounds. Skin: Skin warm and dry.? Normal skin color.? Extremities: No lower extremity edema.? Neuro: Moves all extremities spontaneously. Sensation intact bilaterally. CN II-XII intact. No focal neuro deficits. Ambulates with normal steady gait. <Larissa Mo CNP - Last Filed: 11/26/21 17:43> Course Course Course Narrative: Patient is a 36-year-old male with past medical history of bipolar disorder, and depression. Stenting to emergency department for evaluation of worsening symptoms, self discontinued his medications that he is prescribed while inpatient couple of weeks ago due to insomnia. Continues to have vague SI, with no specific plan at this time, but does endorse suicide attempts in the past, denies homicidal ideations. Recently started on arrival are by his PCP. However his concern for his safety at home. Denies use of recreational drugs or alcohol. Drug of abuse screen and ethanol level to be obtained, COVID-19 testing. Patient will require evaluation by Ne. <Larissa Mo CNP - Last Filed: 11/26/21 17:43> Reevaluation(s) Reevaluation #1: Urinalysis unremarkable. Drug abuse screen negative. COVID-19 testing negative. Patient placed in physician observation at this time, as he will require additional time to be evaluated by N for disposition. Offered anxiolytic however he declined. <Larissa Mo CNP - Last Filed: 11/26/21 17:43> Reevaluation #2: Spoke to Saeid MUÑOZ, Dx, unspecified depression, and bipolar d/o. Plan: inpatient bed search. <ABDI Sherwood - Last Filed: 11/26/21 20:51> Time: 20:51 <ABDI Sherwood - Last Filed: 11/26/21 20:51> MDM - Psych Lab Data Labs: Lab Results 11/26/21 11/26/21 11/26/21 Range/Units 16:57 16:57 16:57 Urine Color YELLOW Urine Appearance CLEAR Urine pH 6.0 (5.0-8.0) Ur Specific Mobile >= 1.030 H (1.005-1.025) Urine Protein NEG (NEG-TRACE) MG/DL Urine Glucose (UA) NEG (NEG) MG/DL Urine Ketones NEG (NEG) MG/DL Urine Blood NEG (NEG) Urine Nitrite NEG (NEG) Ur Leukocyte Esterase NEG (NEG) Urine Opiates Screen Not Detected (Not Detect) Urine Fentanyl Screen Not Detected (Not Detect) Ur Barbiturates Screen Not Detected (Not Detect) Ur Phencyclidine Scrn Not Detected (Not Detect) Ur Amphetamines Screen Not Detected (Not Detect) Urine Cocaine Screen Not Detected (Not Detect) U Marijuana (THC) Screen Not Detected (Not Detect) COVID-19 (KORI) Negative (Negative) COVID-19 Clin Com See Note <Larissa Mo CNP - Last Filed: 11/26/21 17:43> Lab Results 11/26/21 11/26/21 11/26/21 Range/Units 16:57 16:57 16:57 Urine Color YELLOW Urine Appearance CLEAR Urine pH 6.0 (5.0-8.0) Ur Specific Mobile >= 1.030 H (1.005-1.025) Urine Protein NEG (NEG-TRACE) MG/DL Urine Glucose (UA) NEG (NEG) MG/DL Urine Ketones NEG (NEG) MG/DL Urine Blood NEG (NEG) Urine Nitrite NEG (NEG) Ur Leukocyte Esterase NEG (NEG) Urine Opiates Screen Not Detected (Not Detect) Urine Fentanyl Screen Not Detected (Not Detect) Ur Barbiturates Screen Not Detected (Not Detect) Ur Phencyclidine Scrn Not Detected (Not Detect) Ur Amphetamines Screen Not Detected (Not Detect) Urine Cocaine Screen Not Detected (Not Detect) U Marijuana (THC) Screen Not Detected (Not Detect) COVID-19 (KORI) Negative (Negative) COVID-19 Clin Com See Note <ABDI Sherwood - Last Filed: 11/26/21 20:51> Discharge Plan Discharge Clinical Impression: Depression with suicidal ideation <Larissa Mo CNP - Last Filed: 11/26/21 17:43> Patient Disposition: Still a Patient <Larissa Mo CNP - Last Filed: 11/26/21 17:43> Prescriptions: No Action multivitamin [Daily-Vincent] Tablet 1 tab PO DAILY Qty: 30 0RF bupropion HCl 150 mg Tablet Extended Release 24 Hr 150 mg PO DAILY Qty: 30 0RF cholecalciferol (vitamin D3) 25 mcg (1,000 unit) Tablet 25 mcg PO DAILY Qty: 30 0RF Latuda 60 mg tablet 60 mg PO DAILY Qty: 30 0RF Rx Instructions: must administer with food (at least 350 calories)after dinner ~6pm gabapentin 100 mg capsule 1 cap PO NEEDED PRN (Reason: Anxiety) Qty: 30 0RF melatonin 10 mg capsule 1 tab PO BEDTIME PRN (Reason: insomnia) Qty: 30 0RF <Larissa Mo CNP - Last Filed: 11/26/21 17:43>
[2021-11-26 17:16] LABS: Appearance Urine CLEAR; Color Urine YELLOW; Glucose Urine UA NEG (NEG); Leukocyte Esterase Urine NEG (NEG); Nitrite Urine NEG (NEG); Specific Gravity - Urine >= 1.030 (1.005-1.025); Urine Blood NEG (NEG); Urine Ketones NEG (NEG); Urine Protein NEG (NEG-TRACE)
--- NOTE | 2021-11-26 17:25 | PC.NURSE ---
pt given sandwich, juice, ice cream and crackers.
[2021-11-26 17:28] LABS: COVID-19 Test Negative (Negative)
[2021-11-26 17:38] LABS: Fentanyl, urine Not Detected (Not Detect)
[2021-11-26 17:39] LABS: Amphetamine Screen Urine Not Detected (Not Detect); Barbiturates, Urine Not Detected (Not Detect); Cannabinoid Screen Urine Not Detected (Not Detect); Cocaine Screen Urine Not Detected (Not Detect); Opiate Screen Urine Not Detected (Not Detect); Phencyclidine Screen Urine Not Detected (Not Detect)
--- NOTE | 2021-11-26 21:56 | PHA.MEDREC ---
Pharmacy Consult ? Medication Reconciliation Pharmacy has completed the medication reconciliation.
[2021-11-27 03:14] VITALS: BP 111/80; PULSE 84; RESP 16; TEMP 36.2; O2SAT 97
[2021-11-27] MEDS: diphenhydrAMINE HCL 25 MG TABLET 50 MG PO ×2 (03:27→22:02)
--- NOTE | 2021-11-27 04:54 | PC.NURSE ---
Patient slept intermittently, Benadryl 50 mg administered at 0325 with positive effect, no distress observed/reported, N assessed the patient, patient well engaged, disposition section 12 inpatient bed search, behavior appropriate, mood depressed, affect flat, med rec completed/pending provider's approval, will continue to monitor.
--- NOTE | 2021-11-27 07:18 | PC.NURSE ---
patient appears to remain asleep at present respirations are even and unlabored patient appears in no distress
[2021-11-27 09:45] LABS: MANUAL DIFF FLAG NO
[2021-11-27 09:49] LABS: Basophils Percent Auto 0.5 % (0-2); Eosinophils Absolute Auto 0.1 X10*3/uL (0.0-0.4); Eosinophils Percent Auto 1.2 % (0-4); Hematocrit 43.2 % (42.0-52.0); Hemoglobin 14.1 g/dl (14.0-18.0); Imm Gran Abs Auto 0.01 X10*3/uL (0.00-0.03); Imm Gran Pct Auto 0.2 % (0.0-0.4); Lymphocytes Absolute Auto 1.6 X10*3/uL (1.2-4.9); Lymphocytes Percent Auto 37.1 % (20-40); Mean Corpuscular HGB Conc 32.6 g/dl (31.0-36.0); Mean Corpuscular Volume 88.7 fL (80.0-98.0); Mean Platelet Volume 9.7 fL (9.4-12.4); Monocytes Absolute Auto 0.4 X10*3/uL (0.1-1.2); Monocytes Percent Auto 8.1 % (2-11); Neutrophils Absolute Auto 2.3 x10*3/uL (2.0-8.3); Neutrophils Percent Auto 52.9 % (45-73); Platelet Count 210 X10*3/uL (160-400); Red Blood Count 4.87 X10*6/uL (4.60-5.80); Red Cell Distribution Width 12.9 % (11.0-16.0); White Blood Count 4.3 X10*3/uL (4.8-10.8)
[2021-11-27] MEDS: Cariprazine HCl 1.5 MG CAPSULE PO (09:54)
[2021-11-27 10:14] LABS: Alanine Aminotransferase 21 U/L (0-40); Albumin Level 4.3 g/dL (3.5-5.0); Alkaline Phosphatase 49 U/L (39-117); Anion Gap 11 (12-20); Aspartate Amino Transferase 14 U/L (5-37); Bilirubin Total 0.5 mg/dL (0.0-1.0); Blood Urea Nitrogen 12 mg/dL (9-16); Calcium 9.4 mg/dL (8.4-10.2); Carbon Dioxide 29 mmol/L (22-29); Chloride 104 mmol/L (96-108); Creatinine Clr Calc Pharmacy 105.3; Estimated Glomerular Filt Rate > 60; Glucose Fasting 88 mg/dL (60-99); Potassium 3.9 mmol/L (3.3-5.1); Sodium 140 mmol/L (135-145)
[2021-11-27 16:20] VITALS: BP 137/86; PULSE 79; RESP 16; TEMP 36.1; O2SAT 97
--- NOTE | 2021-11-27 17:10 | HO.PSYADMNOT ---
HPI Date of Service: 11/27/21 Chief Complaint: Si/ psychosis Sources of Information: patient interviewed, chart reviewed and crisis/core team assessment reviewed HPI Subjective Notes: [place] Warning and Conditional Voluntary Healthcare Proxy: No Guardianship: No Medical Problems Affecting Mental Status: No Narrative: Angelika is a 36 y.o. Male who presented to [facility] [place] [facility] on 11/26/21 due to increased depression, SI with no plan, and anxiety. Recently discharged from [facility] on M5 but stopped his medication after 2 days and was seen by his PCP and put on vraylar 4 days ago.? I evaluated the pt this evening and upon interview he reports he discontinued Wellbutrin and latuda because he ?felt like I was on cocaine,? says he could not sleep. His PCP prescribed vraylar 1.5 mg 4 days ago. Pt says he is tolerating it and thinks it may be helping, as he was able to mow the lawn on the second day. He continues to report poor sleep quality, says he has ?fractured sleep,? wakes up frequently. No issues with falling asleep. Pt is ambivalent about this admission, says he does not think he needs to be here. Says his primary symptom of depression is ?the guilt,? as he feels he has upended his family?s life and does not know how to provide for them anymore.? Past Psychiatric History: Meds-Adderall, Klonopin, Lamictal-rash, [place]-tremor on 1500 mg, Latuda-it does nothing, Remeron, Sertraline. Fears impotence on meds and will not tolerate this SE. IP: Apr 2021-Rani Hernandez OP: TONI, [facility] case mgt since 05/22 Medical Evaluation Reviewed: Yes [facility] Family History: Bipolar-Father, Brother-homebound with severe illness Social History: , 2 children-son age 12 from a previous relationship who was adopted by pt's sister; daughter 5. Unemployed, seeking social security Trauma History: Losses Diagnostics Vital Signs (24Hr): Vital Signs - 24 hr 11/27/21 03:14 11/27/21 16:20 Temperature 97.2 F 97 F Pulse Rate 84 79 Respiratory Rate 16 16 Blood Pressure 111/80 137/86 Pulse Oximetry 97 97 Oxygen Delivery Method Room Air Room Air BMI result Body Mass Index 27.3 Labs Results: 11/27/21 09:37 11/27/21 09:37 Labs: Laboratory Results - last 48 hr 11/26/21 11/26/21 11/26/21 16:57 16:57 16:57 WBC RBC Hgb Hct MCV MCH MCHC RDW Plt Count MPV Immature Gran % (Auto) Neut % (Auto) Lymph % (Auto) [place] % (Auto) Eos % (Auto) Baso % (Auto) Lymph # (Auto) [place] # (Auto) Eos # (Auto) Baso # (Auto) Abs Immat Gran (auto) Absolute Neuts (auto) Absolute Nucleated RBC Nucleated RBC % (auto) Sodium Potassium Chloride Carbon Dioxide Anion Gap BUN Creatinine Estim Creat Clear Calc Estimated GFR Fasting Glucose Calcium Total Bilirubin AST ALT Alkaline Phosphatase Total Protein Albumin Urine Color YELLOW Urine Appearance CLEAR Urine pH 6.0 Ur Specific [place] >= 1.030 H Urine Protein NEG Urine Glucose (UA) NEG Urine Ketones NEG Urine Blood NEG Urine Nitrite NEG Ur Leukocyte Esterase NEG Urine Opiates Screen Not Detected Urine Fentanyl Screen Not Detected Ur Barbiturates Screen Not Detected Ur Phencyclidine Scrn Not Detected Ur Amphetamines Screen Not Detected Urine Cocaine Screen Not Detected U Marijuana (THC) Screen Not Detected COVID-19 (KORI) Negative COVID-19 Clin Com See Note 11/27/21 11/27/21 09:37 09:37 WBC 4.3 L RBC 4.87 Hgb 14.1 Hct 43.2 MCV 88.7 MCH 29.0 MCHC 32.6 RDW 12.9 Plt Count 210 MPV 9.7 Immature Gran % (Auto) 0.2 Neut % (Auto) 52.9 Lymph % (Auto) 37.1 [place] % (Auto) 8.1 Eos % (Auto) 1.2 Baso % (Auto) 0.5 Lymph # (Auto) 1.6 [place] # (Auto) 0.4 Eos # (Auto) 0.1 Baso # (Auto) 0.0 Abs Immat Gran (auto) 0.01 Absolute Neuts (auto) 2.3 Absolute Nucleated RBC 0.000 Nucleated RBC % (auto) 0.0 Sodium 140 Potassium 3.9 Chloride 104 Carbon Dioxide 29 Anion Gap 11 L BUN 12 Creatinine 0.96 Estim Creat Clear Calc 105.3 Estimated GFR > 60 Fasting Glucose 88 Calcium 9.4 Total Bilirubin 0.5 AST 14 ALT 21 Alkaline Phosphatase 49 Total Protein 7.0 Albumin 4.3 Urine Color Urine Appearance Urine pH Ur Specific [place] Urine Protein Urine Glucose (UA) Urine Ketones Urine Blood Urine Nitrite Ur Leukocyte Esterase Urine Opiates Screen Urine Fentanyl Screen Ur Barbiturates Screen Ur Phencyclidine Scrn Ur Amphetamines Screen Urine Cocaine Screen U Marijuana (THC) Screen COVID-19 (KORI) COVID-19 Clin Com Meds/Allergies Meds Home Medications Medication Instructions Recorded Confirmed Type cariprazine 1.5 mg capsule 1.5 mg PO DAILY 11/26/21 11/26/21 History (Vraylar) Allergies Allergies Allergy/AdvReac Type Severity Reaction Status Date / Time lamotrigine [From Lamictal] Allergy Severe Rash Verified 11/03/21 15:52 Mental Status Exam Mental Status Exam Narrative: Patient Appearance: Appropriate Patient Orientation: Person, Place, Time and Situation Level of Consciousness: Alert Patient Behavior: Talkative, Anxious, Fearful, Resistive to Care, Distractible, Good Eye Contact and Impulsive Mood Description: Suspicious, Withdrawn, Depressed, Fearful, Anxious, Sad, Nervous, Apprehensive and Expansive Affect Description: Labile Patient Cognition Impaired: No Ability to Follow Directions: Good Speech Pattern: Spontaneous Speech Memory Description: Intact Perceptual Disturbances: Depersonalization and Derealization Thought Process: Rumination Thought Content: positive for Powers, positive for Obsessional Thoughts, positive for Circumstantial, positive for Perseveration, positive for Preoccupation and positive for Suicidal Ideation Depressive Symptoms: Increased Anxiety, Increased Irritability, Changes in Appetite, Crying Spells, Significant Weight Loss, Loss of Int. in Activity, Feelings of Worthlessness, Hopelessness, Isolating-Friends/Family, Feelings of Guilt, Unhappiness, Increased Fatigue, Thoughts of /Suicide, Low Self Esteem, Loss of Energy and Difficulty Concentrating Abnormal Motor Activity Signs and Symptoms: Restlessness Judgment: Poor Assessment & Plan Assessment & Plan (1) Mixed bipolar disorder: Status: Acute Code(s): F31.60 - Bipolar disorder, current episode mixed, unspecified (2) Bipolar II disorder: Status: Acute Code(s): F31.81 - Bipolar II disorder Plan 36 yo male, hx of bipolar disorder, diagnosed in 2020 with mixed features. Due to manic symptoms, pt lost control of spending and lost his business, home and status in his [place] community. Recently discharged from [facility] on M5 but stopped his medication after 2 days and was seen by his PCP and put on vraylar 4 days ago.? Plan: Discussed DBT with pt, he is interested in a referral. Pt does not want medication changes, wants to give vraylar 1.5 mg more time and possibly titrate dose to 3 mg to maximize benefit.? Q15 min safety checks, CV Monitor response to medications. Monitor for safety in the milieu. Discharge on stabilization. Patient seen. Chart reviewed. Discussed with team. Obtain collateral contact info?as needed Patient educated on: medication risk/benefits Reason for continued inpatient stay Substantial Risk for: harm to self and med/psych decompensation
[2021-11-27] MEDS: Gabapentin 100 MG CAPSULE PO (17:17)
[2021-11-27] MEDS: Melatonin 3 MG TABLET 10 MG PO (22:00)
[2021-11-28 06:39] VITALS: BP 175/104; PULSE 73; TEMP 36.5; O2SAT 99
[2021-11-28 06:58] LABS: Benzodiazepines Screen Urine NOT DETECTED (Not Detect)
[2021-11-28] MEDS: Cariprazine HCl 1.5 MG CAPSULE PO (09:13)
[2021-11-28] MEDS: clonazePAM 0.5 MG TABLET PO (10:17)
[2021-11-28] MEDS: Nicotine Polacrilex 2 MG GUM 4 MG BUCCAL (12:36)
--- NOTE | 2021-11-28 16:02 | P.HPPS_ITS ---
HPI Date of Service: 11/28/21 Chief Complaint: Si/ psychosis Sources of Information: patient interviewed, chart reviewed and crisis/core team assessment reviewed HPI Subjective Notes: [place] Warning and Conditional Voluntary Healthcare Proxy: No Guardianship: No Medical Problems Affecting Mental Status: No Narrative: 36 yo male, recent M5 admission, hx of bipolar disorder, substance abuse (sober >10 years). Pt called, asking to return as he reports an increase in depressive sx, with SI. Medications he finds difficult to take, as when he takes them he often believes they cause instantaneous ED. Past Psychiatric History: Meds-Adderall, Klonopin, Lamictal-rash, [place]-tremor on 1500 mg, Latuda-it does nothing, Remeron, Sertraline. Fears impotence on meds and will not tolerate this SE. IP: Apr 2021-Rani Hernandez OP: TONI, [facility] case mgt since 05/22 [facility] Medical History (Updated 11/28/21 @ 08:37 by Shireen Funk NP) Mixed bipolar disorder Family History: Bipolar-Father, Brother-homebound with severe illness Social History: , 2 children-son age 12 from a previous relationship who was adopted by pt's sister; daughter 5. Unemployed, seeking social security Trauma History: Losses Diagnostics Vital Signs (24Hr): Vital Signs - 24 hr 11/27/21 16:20 11/28/21 06:39 Temperature 97 F 97.7 F Pulse Rate 79 73 Respiratory Rate 16 Blood Pressure 137/86 175/104 H Pulse Oximetry 97 99 Oxygen Delivery Method Room Air Room Air BMI result Body Mass Index 27.3 Labs Results: 11/27/21 09:37 11/27/21 09:37 Labs: Laboratory Results - last 48 hr 11/26/21 11/26/21 11/26/21 16:57 16:57 16:57 WBC RBC Hgb Hct MCV MCH MCHC RDW Plt Count MPV Immature Gran % (Auto) Neut % (Auto) Lymph % (Auto) [place] % (Auto) Eos % (Auto) Baso % (Auto) Lymph # (Auto) [place] # (Auto) Eos # (Auto) Baso # (Auto) Abs Immat Gran (auto) Absolute Neuts (auto) Absolute Nucleated RBC Nucleated RBC % (auto) Sodium Potassium Chloride Carbon Dioxide Anion Gap BUN Creatinine Estim Creat Clear Calc Estimated GFR Fasting Glucose Calcium Total Bilirubin AST ALT Alkaline Phosphatase Total Protein Albumin Urine Color YELLOW Urine Appearance CLEAR Urine pH 6.0 Ur Specific [place] >= 1.030 H Urine Protein NEG Urine Glucose (UA) NEG Urine Ketones NEG Urine Blood NEG Urine Nitrite NEG Ur Leukocyte Esterase NEG Urine Opiates Screen Not Detected Urine Fentanyl Screen Not Detected Ur Barbiturates Screen Not Detected Ur Phencyclidine Scrn Not Detected Ur Amphetamines Screen Not Detected U Benzodiazepines Scrn NOT DETECTED Urine Cocaine Screen Not Detected U Marijuana (THC) Screen Not Detected COVID-19 (KORI) Negative COVID-19 Clin Com See Note 11/27/21 11/27/21 09:37 09:37 WBC 4.3 L RBC 4.87 Hgb 14.1 Hct 43.2 MCV 88.7 MCH 29.0 MCHC 32.6 RDW 12.9 Plt Count 210 MPV 9.7 Immature Gran % (Auto) 0.2 Neut % (Auto) 52.9 Lymph % (Auto) 37.1 [place] % (Auto) 8.1 Eos % (Auto) 1.2 Baso % (Auto) 0.5 Lymph # (Auto) 1.6 [place] # (Auto) 0.4 Eos # (Auto) 0.1 Baso # (Auto) 0.0 Abs Immat Gran (auto) 0.01 Absolute Neuts (auto) 2.3 Absolute Nucleated RBC 0.000 Nucleated RBC % (auto) 0.0 Sodium 140 Potassium 3.9 Chloride 104 Carbon Dioxide 29 Anion Gap 11 L BUN 12 Creatinine 0.96 Estim Creat Clear Calc 105.3 Estimated GFR > 60 Fasting Glucose 88 Calcium 9.4 Total Bilirubin 0.5 AST 14 ALT 21 Alkaline Phosphatase 49 Total Protein 7.0 Albumin 4.3 Urine Color Urine Appearance Urine pH Ur Specific [place] Urine Protein Urine Glucose (UA) Urine Ketones Urine Blood Urine Nitrite Ur Leukocyte Esterase Urine Opiates Screen Urine Fentanyl Screen Ur Barbiturates Screen Ur Phencyclidine Scrn Ur Amphetamines Screen U Benzodiazepines Scrn Urine Cocaine Screen U Marijuana (THC) Screen COVID-19 (KORI) COVID-19 Clin Com Meds/Allergies Meds Home Medications Medication Instructions Recorded Confirmed Type cariprazine 1.5 mg capsule 1.5 mg PO DAILY 11/26/21 11/26/21 History (Vraylar) Allergies Allergies Allergy/AdvReac Type Severity Reaction Status Date / Time lamotrigine [From Lamictal] Allergy Severe Rash Verified 11/03/21 15:52
--- NOTE | 2021-11-28 17:54 | P.PNPSI_ITS ---
Subjective Subjective Date of Service: 11/28/21 Reason For Visit: Si/ psychosis Subjective Notes: Conditional Voluntary Healthcare Proxy: No Guardianship: No Medical Problems Affecting Mental Status: No Interim History: I am really stuck and worried. Discussed his responsibilities to his family-feeling stuck in fear-unable to look for work. Believes he has pushed his family and made his home toxic. 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 Medication Compliance: Yes Side effects from medications: No Attending Groups: Yes Review of Systems Acute medical concerns: No Medical Review of Systems: unchanged Review of Systems Reports behavioral changes Psychiatric: Reports anxiety, Reports behavioral changes, Reports depression, Reports difficulty concentrating, Reports hopelessness, Reports irritability, Reports anhedonia, Reports mood swings, Reports paranoia and Reports suicidal ideation Mental Status Exam Mental Status Exam Patient Appearance: Appropriate Patient Orientation: Person, Place, Time and Situation Level of Consciousness: Alert Patient Behavior: Appropriate, Talkative, Good Eye Contact and Crying Mood Description: Depressed Affect Description: Flat Patient Cognition Impaired: No Ability to Follow Directions: Good Speech Pattern: Spontaneous Speech Memory Description: Intact Hallucinations: None Delusions: Not Present Perceptual Disturbances: Depersonalization and Derealization Thought Process: Distracted and Rumination Thought Content: positive for Perseveration and positive for Suicidal Ideation Depressive Symptoms: Increased Anxiety, Increased Irritability, Loss of Int. in Activity, Feelings of Worthlessness, Hopelessness, Isolating-Friends/Family, Feelings of Guilt, Thoughts of /Suicide and Low Self Esteem Abnormal Motor Activity Signs and Symptoms: Restlessness Judgement: Fair Diagnostics Vital Signs (24Hr): Vital Signs - 24 hr 11/28/21 06:39 Temperature 97.7 F Pulse Rate 73 Blood Pressure 175/104 H Pulse Oximetry 99 Oxygen Delivery Method Room Air BMI result Body Mass Index 27.3 Labs Results: 11/27/21 09:37 11/27/21 09:37 Labs: Laboratory Results - last 48 hr 11/26/21 11/27/21 11/27/21 16:57 09:37 09:37 WBC 4.3 L RBC 4.87 Hgb 14.1 Hct 43.2 MCV 88.7 MCH 29.0 MCHC 32.6 RDW 12.9 Plt Count 210 MPV 9.7 Immature Gran % (Auto) 0.2 Neut % (Auto) 52.9 Lymph % (Auto) 37.1 [place] % (Auto) 8.1 Eos % (Auto) 1.2 Baso % (Auto) 0.5 Lymph # (Auto) 1.6 [place] # (Auto) 0.4 Eos # (Auto) 0.1 Baso # (Auto) 0.0 Abs Immat Gran (auto) 0.01 Absolute Neuts (auto) 2.3 Absolute Nucleated RBC 0.000 Nucleated RBC % (auto) 0.0 Sodium 140 Potassium 3.9 Chloride 104 Carbon Dioxide 29 Anion Gap 11 L BUN 12 Creatinine 0.96 Estim Creat Clear Calc 105.3 Estimated GFR > 60 Fasting Glucose 88 Calcium 9.4 Total Bilirubin 0.5 AST 14 ALT 21 Alkaline Phosphatase 49 Total Protein 7.0 Albumin 4.3 U Benzodiazepines Scrn NOT DETECTED Medications Medications Current Medications Acetaminophen (Acetaminophen 325 Mg Tablet) 650 mg PO Q6H PRN PRN Reason: Headache/Pain Mild Scale (1-3) Al Hydroxide/Mg Hydroxide (Magnesium Hydrox/Alum Hydrox 30 Ml Oral.Susp) 30 ml PO Q6H PRN PRN Reason: Heartburn/Nausea Cariprazine (Cariprazine Hcl 1.5 Mg Capsule) 1.5 mg PO DAILY DAVIS Last Admin: 11/28/21 09:13 Dose: 1.5 mg Clonazepam (Clonazepam 0.5 Mg Tablet) 0.5 mg PO BID PRN PRN Reason: Anxiety Last Admin: 11/28/21 10:17 Dose: 0.5 mg Clonidine HCl (Clonidine Hcl 0.1 Mg Tablet) 0.1 mg PO Q4H PRN; Protocol PRN Reason: anxiety Diphenhydramine HCl (Diphenhydramine Hcl 25 Mg Tablet) 50 mg PO Q4H PRN PRN Reason: agitation Diphenhydramine HCl (Diphenhydramine Hcl 25 Mg Tablet) 50 mg PO BEDTIME PRN PRN Reason: Insomnia Last Admin: 11/27/21 22:02 Dose: 50 mg Gabapentin (Gabapentin 100 Mg Capsule) 100 mg PO TID PRN PRN Reason: anxiety Last Admin: 11/27/21 17:17 Dose: 100 mg Haloperidol (Haloperidol 5 Mg Tablet) 5 mg PO Q4H PRN PRN Reason: agitation Hydroxyzine HCl (Hydroxyzine Hcl 25 Mg Tablet) 25 mg PO QID PRN PRN Reason: Anxiety Lorazepam (Lorazepam 1 Mg Tablet) 2 mg PO Q4H PRN PRN Reason: agitation Magnesium Hydroxide (Milk Of Magnesia 30 Ml Oral.Susp) 30 ml PO DAILY PRN PRN Reason: Constipation Melatonin (Melatonin 3 Mg Tablet) 10 mg PO BEDTIME DAVIS Last Admin: 11/27/21 22:00 Dose: 10 mg Nicotine Polacrilex (Nicotine Polacrilex 2 Mg Gum) 4 mg BUCCAL Q2H PRN PRN Reason: Nicotine Cravings Last Admin: 11/28/21 12:36 Dose: 4 mg Trazodone HCl (Trazodone Hcl 50 Mg Tablet) 50 mg PO BEDTIME PRN PRN Reason: Insomnia Allergies Allergies Allergy/AdvReac Type Severity Reaction Status Date / Time lamotrigine [From Lamictal] Allergy Severe Rash Verified 11/03/21 15:52 Assessment & Plan Assessment & Plan (1) Mixed bipolar disorder: Status: Acute Code(s): F31.60 - Bipolar disorder, current episode mixed, unspecified (2) Bipolar II disorder: Status: Acute Code(s): F31.81 - Bipolar II disorder Plan 11/28/21- Continue current regime Process current symptoms with pt to assist him in moving forward I spent minutes with the patient and/or on the patient floor today, greater than?50% of which was spent counseling/coordinating care. Patient educated on: therapeutic strategies Informed Consent: understands and further education needed Reason for contiued inpatient stay Substantial Risk for: harm to self, inability to function and rapid decompensation
[2021-11-28 18:00] VITALS: BP 110/70; PULSE 75; RESP 18; TEMP 35.9; O2SAT 99
[2021-11-28] MEDS: Melatonin 3 MG TABLET 10 MG PO (21:43)
[2021-11-28] MEDS: diphenhydrAMINE HCL 25 MG TABLET 50 MG PO (21:44)
[2021-11-29 06:45] VITALS: BP 119/78; PULSE 62; RESP 14; TEMP 36.1; O2SAT 98
[2021-11-29] MEDS: Cariprazine HCl 1.5 MG CAPSULE PO (08:38)
[2021-11-29 08:39] VITALS: BP 114/73; PULSE 71; RESP 14; TEMP 36.5; O2SAT 98
[2021-11-29] MEDS: Gabapentin 100 MG CAPSULE PO (13:24)
[2021-11-29 18:00] VITALS: BP 116/78; RESP 16; TEMP 36.6
--- NOTE | 2021-11-29 18:47 | P.PNPSI_ITS ---
Subjective Subjective Date of Service: 11/29/21 Reason For Visit: Si/ psychosis Subjective Notes: Conditional Voluntary Healthcare Proxy: No Guardianship: No Medical Problems Affecting Mental Status: No Interim History: Improved, problem solving. Looking at options. Discussed his partnership with his and his level of trust in her. Thinking about how to utilize her wisdom, judgment and support to assist him in returning to his work. Increased response to suggestion, ideas, options. TDN expires 11/30. Medication Compliance: Yes Side effects from medications: No Attending Groups: Yes Review of Systems Acute medical concerns: No Medical Review of Systems: unchanged Review of Systems Reports behavioral changes Psychiatric: Reports anxiety, Reports behavioral changes, Reports mood swings and Reports suicidal ideation (denies- not an option-I have a family ) Mental Status Exam Mental Status Exam Patient Appearance: Appropriate Patient Orientation: Person, Place, Time and Situation Level of Consciousness: Alert Patient Behavior: Appropriate, Talkative, Good Eye Contact and Crying Mood Description: Depressed Affect Description: Flat Patient Cognition Impaired: No Ability to Follow Directions: Good Speech Pattern: Spontaneous Speech Memory Description: Intact Hallucinations: None Delusions: Not Present Perceptual Disturbances: Depersonalization and Derealization Thought Process: Distracted and Rumination Thought Content: positive for Perseveration Depressive Symptoms: Increased Anxiety, Loss of Int. in Activity, Feelings of Worthlessness, Isolating-Friends/Family, Feelings of Guilt and Low Self Esteem Abnormal Motor Activity Signs and Symptoms: Restlessness Judgement: Fair Diagnostics Vital Signs (24Hr): Vital Signs - 24 hr 11/29/21 06:45 11/29/21 08:39 Temperature 96.9 F 97.7 F Pulse Rate 62 71 Respiratory Rate 14 14 Blood Pressure 119/78 114/73 Pulse Oximetry 98 98 Oxygen Delivery Method Room Air Room Air BMI result Body Mass Index 27.3 Labs Results: 11/27/21 09:37 11/27/21 09:37 Labs: Laboratory Results - last 48 hr 11/26/21 16:57 U Benzodiazepines Scrn NOT DETECTED Medications Medications Current Medications Acetaminophen (Acetaminophen 325 Mg Tablet) 650 mg PO Q6H PRN PRN Reason: Headache/Pain Mild Scale (1-3) Al Hydroxide/Mg Hydroxide (Magnesium Hydrox/Alum Hydrox 30 Ml Oral.Susp) 30 ml PO Q6H PRN PRN Reason: Heartburn/Nausea Cariprazine (Cariprazine Hcl 1.5 Mg Capsule) 1.5 mg PO DAILY ON LICENSE OF [facility] Last Admin: 11/29/21 08:38 Dose: 1.5 mg Clonazepam (Clonazepam 0.5 Mg Tablet) 0.5 mg PO BID PRN PRN Reason: Anxiety Last Admin: 11/28/21 10:17 Dose: 0.5 mg Clonidine HCl (Clonidine Hcl 0.1 Mg Tablet) 0.1 mg PO Q4H PRN; Protocol PRN Reason: anxiety Diphenhydramine HCl (Diphenhydramine Hcl 25 Mg Tablet) 50 mg PO Q4H PRN PRN Reason: agitation Last Admin: 11/28/21 21:44 Dose: 25 mg Diphenhydramine HCl (Diphenhydramine Hcl 25 Mg Tablet) 50 mg PO BEDTIME PRN PRN Reason: Insomnia Last Admin: 11/27/21 22:02 Dose: 50 mg Gabapentin (Gabapentin 100 Mg Capsule) 100 mg PO TID PRN PRN Reason: anxiety Last Admin: 11/29/21 13:24 Dose: 100 mg Haloperidol (Haloperidol 5 Mg Tablet) 5 mg PO Q4H PRN PRN Reason: agitation Hydroxyzine HCl (Hydroxyzine Hcl 25 Mg Tablet) 25 mg PO QID PRN PRN Reason: Anxiety Lorazepam (Lorazepam 1 Mg Tablet) 2 mg PO Q4H PRN PRN Reason: agitation Magnesium Hydroxide (Milk Of Magnesia 30 Ml Oral.Susp) 30 ml PO DAILY PRN PRN Reason: Constipation Melatonin (Melatonin 3 Mg Tablet) 10 mg PO BEDTIME ON LICENSE OF [facility] Last Admin: 11/28/21 21:43 Dose: 10 mg Nicotine Polacrilex (Nicotine Polacrilex 2 Mg Gum) 4 mg BUCCAL Q2H PRN PRN Reason: Nicotine Cravings Last Admin: 11/28/21 12:36 Dose: 4 mg Trazodone HCl (Trazodone Hcl 50 Mg Tablet) 50 mg PO BEDTIME PRN PRN Reason: Insomnia Allergies Allergies Allergy/AdvReac Type Severity Reaction Status Date / Time lamotrigine [From Lamictal] Allergy Severe Rash Verified 11/03/21 15:52 Assessment & Plan Assessment & Plan (1) Mixed bipolar disorder: Status: Acute Code(s): F31.60 - Bipolar disorder, current episode mixed, unspecified (2) Bipolar II disorder: Status: Acute Code(s): F31.81 - Bipolar II disorder Plan 11/28/21- Continue current regime Process current symptoms with pt to assist him in moving forward 11/29/21-Continue current regime TDN to 11/30. Pt working on his plan to move forward No SI today-stating he needs to live for his family, however with significant self esteem issues. I spent minutes with the patient and/or on the patient floor today, greater than?50% of which was spent counseling/coordinating care. Patient educated on: therapeutic strategies Informed Consent: understands and further education needed Reason for contiued inpatient stay Substantial Risk for: harm to self, inability to function and rapid decompensation
[2021-11-29] MEDS: Melatonin 3 MG TABLET 10 MG PO (22:05)
[2021-11-29] MEDS: diphenhydrAMINE HCL 25 MG TABLET 50 MG PO (22:05)
[2021-11-30 06:00] VITALS: BP 118/74; PULSE 72; RESP 16; TEMP 36.3; O2SAT 99
[2021-11-30] MEDS: Cariprazine HCl 1.5 MG CAPSULE PO (10:10)
[2021-11-30] MEDS: Gabapentin 300 MG CAPSULE PO (10:59)
--- NOTE | 2021-11-30 15:18 | P.DS_ITS ---
DS: Providers Provider Date of Service: 11/30/21 Date of admission: 11/27/21 14:05 Date of discharge: 11/30/21 Primary care physician: Frida Bui NP Admitting clinician: Shireen Funk Attending physician on admission: Alan Yu Attending physician on discharge: Alan Yu Discharging clinician: Brenda Blackburn DS: Diagnosis Discharge Diagnosis (1) Mixed bipolar disorder: Status: Acute (2) Bipolar II disorder: Status: Acute DS: Medications Discharge Medications Home Medications: Previous Rx's Medication Instructions Recorded cariprazine 3 mg capsule (Vraylar) 3 mg PO DAILY #30 caps 11/30/21 clonazepam 0.5 mg tablet 0.5 mg PO BID PRN Anxiety #14 tabs 11/30/21 clonidine HCl 0.1 mg tablet 0.1 mg PO Q4H PRN anxiety #60 tabs 11/30/21 diphenhydramine HCl 25 mg tablet 50 mg PO Q4H PRN agitation #120 11/30/21 (Allergy Relief (diphenhydramine)) tabs gabapentin 300 mg capsule 300 mg PO TID PRN anxiety #90 caps 11/30/21 melatonin 10 mg capsule 10 mg PO BEDTIME PRN sleep #30 caps 11/30/21 nicotine (polacrilex) 2 mg gum 4 mg buccal Q2H PRN Nicotine 11/30/21 Cravings #60 ea Mental Status Exam Mental Status Exam Patient Appearance: Appropriate Patient Orientation: Person, Place, Time and Situation Level of Consciousness: Alert Patient Behavior: Appropriate, Talkative, Good Eye Contact and Crying Mood Description: Depressed Affect Description: Flat Patient Cognition Impaired: No Ability to Follow Directions: Good Speech Pattern: Spontaneous Speech Memory Description: Intact Hallucinations: None Delusions: Not Present Perceptual Disturbances: Depersonalization and Derealization Thought Process: Distracted and Rumination Thought Content: positive for Perseveration Depressive Symptoms: Increased Anxiety, Loss of Int. in Activity, Feelings of Worthlessness, Isolating-Friends/Family, Feelings of Guilt and Low Self Esteem Abnormal Motor Activity Signs and Symptoms: Restlessness Judgement: Fair Data Data Completed and Pending Completed studies during hospitalization [Text1]: 11/26/21 11/26/21 11/26/21 16:57 16:57 16:57 WBC RBC Hgb Hct MCV MCH MCHC RDW Plt Count MPV Immature Gran % (Auto) Neut % (Auto) Lymph % (Auto) [place] % (Auto) Eos % (Auto) Baso % (Auto) Lymph # (Auto) [place] # (Auto) Eos # (Auto) Baso # (Auto) Abs Immat Gran (auto) Absolute Neuts (auto) Absolute Nucleated RBC Nucleated RBC % (auto) Sodium Potassium Chloride Carbon Dioxide Anion Gap BUN Creatinine Estim Creat Clear Calc Estimated GFR Fasting Glucose Calcium Total Bilirubin AST ALT Alkaline Phosphatase Total Protein Albumin Urine Color YELLOW Urine Appearance CLEAR Urine pH 6.0 Ur Specific Lena >= 1.030 H Urine Protein NEG Urine Glucose (UA) NEG Urine Ketones NEG Urine Blood NEG Urine Nitrite NEG Ur Leukocyte Esterase NEG Urine Opiates Screen Not Detected Urine Fentanyl Screen Not Detected Ur Barbiturates Screen Not Detected Ur Phencyclidine Scrn Not Detected Ur Amphetamines Screen Not Detected U Benzodiazepines Scrn NOT DETECTED Urine Cocaine Screen Not Detected U Marijuana (THC) Screen Not Detected COVID-19 (KORI) Negative COVID-19 Clin Com See Note 11/27/21 11/27/21 09:37 09:37 WBC 4.3 L RBC 4.87 Hgb 14.1 Hct 43.2 MCV 88.7 MCH 29.0 MCHC 32.6 RDW 12.9 Plt Count 210 MPV 9.7 Immature Gran % (Auto) 0.2 Neut % (Auto) 52.9 Lymph % (Auto) 37.1 [place] % (Auto) 8.1 Eos % (Auto) 1.2 Baso % (Auto) 0.5 Lymph # (Auto) 1.6 [place] # (Auto) 0.4 Eos # (Auto) 0.1 Baso # (Auto) 0.0 Abs Immat Gran (auto) 0.01 Absolute Neuts (auto) 2.3 Absolute Nucleated RBC 0.000 Nucleated RBC % (auto) 0.0 Sodium 140 Potassium 3.9 Chloride 104 Carbon Dioxide 29 Anion Gap 11 L BUN 12 Creatinine 0.96 Estim Creat Clear Calc 105.3 Estimated GFR > 60 Fasting Glucose 88 Calcium 9.4 Total Bilirubin 0.5 AST 14 ALT 21 Alkaline Phosphatase 49 Total Protein 7.0 Albumin 4.3 Urine Color Urine Appearance Urine pH Ur Specific Lena Urine Protein Urine Glucose (UA) Urine Ketones Urine Blood Urine Nitrite Ur Leukocyte Esterase Urine Opiates Screen Urine Fentanyl Screen Ur Barbiturates Screen Ur Phencyclidine Scrn Ur Amphetamines Screen U Benzodiazepines Scrn Urine Cocaine Screen U Marijuana (THC) Screen COVID-19 ([facility]I) COVID-19 Clin Com DS: Summary Hospital Course Hospital Course: Admission to adult psychiatry for exacerbation of symptoms of bipolar disorder, type II, depressed. Recent admission . Pt stopped medications after discharge, did see out patient providers, and re-started Vraylar, which he experienced no SE during admission and was able to increase. Angelika was active in the milieu this admission and with the team, working on moving forward with his recovery, and beginning to look at symptoms, history, and effects upon current mental status. Although depressed, he denied SI and returns home to work with his on moving forward with their life, parenting and looking for a wo rk environment that meets his current needs. He would like to return to [employer] and [employer], and does have community support he reports when his symptoms are improved. Time spent discussing smoking cessation with patient: 3 to 10 minutes Status at Discharge Functional status at discharge: independent ambulation Overall status at discharge: patient is progressing back to baseline Time Spent with Patient Time attestation: Total time spent providing and/or coordinating discharge services: Time spent: Greater than 30 minutes Discharge Plan Discharge Patient Disposition: Home, Self-Care Discharge Diagnosis: Bipolar Disorder, Type II Referrals: Letty Fuentes [Other] - 12/12/21 2:00 pm (Appointment for Psychiatric evaluation and medication management Appointment is by tele-health Check your email for a link to appointment ) Letty Fuentes [Other] - 01/09/22 9:30 am (Medication management appointment by tele-health Please check your email for a link to the appointment.) Shayan Viramontes [Other] - 12/04/21 4:00 pm (In person appointment with assigned therapist at [facility] you must attend therapy appointment with therapist to receive medication management services) Frida Bui NP [Primary Care Provider] - 12/08/21 2:00 pm Discharge Medications: New clonidine HCl 0.1 mg Tablet 0.1 mg PO Q4H PRN (Reason: anxiety) Qty: 60 0RF Protocol: Hold for SBP< HOLD for SBP < : 90 nicotine (polacrilex) 2 mg Gum 4 mg buccal Q2H PRN (Reason: Nicotine Cravings) Qty: 60 0RF clonazepam 0.5 mg Tablet 0.5 mg PO BID PRN (Reason: Anxiety) Qty: 14 4RF diphenhydramine HCl [Allergy Relief(diphenhydramin)] 25 mg Tablet 50 mg PO Q4H PRN (Reason: agitation) Qty: 120 0RF gabapentin 300 mg Capsule 300 mg PO TID PRN (Reason: anxiety) Qty: 90 0RF Vraylar 3 mg Capsule 3 mg PO DAILY Qty: 30 0RF melatonin 10 mg capsule 10 mg PO BEDTIME PRN (Reason: sleep) Qty: 30 0RF Discontinued Vraylar 1.5 mg Capsule 1.5 mg PO DAILY Rx Instructions: increase to 2 capsules daily after 1 week Discharge Orders: Discharge Order (Routine); Ordered 11/30/21 Ordered By: Brenda Blackburn Diet: Advance to usual diet Activity on Discharge: As tolerated Stand Alone Forms: Patient Portal Discharge page, Community Support Care Plan Goals: Mood stabilization Health Concerns: Bipolar Disorder, type II Plan of Treatment: Attend follow up appointments Take medications as directed Assessment: non-psychotic non-suicidal Discharge Date/Time: 11/30/21 14:58
== END 2021-11-30 14:58 | disposition home or self-care (01) | DRG 753 ==
LOC: HO.ED 11-27 14:48 → HO.PM5 11-27 15:09
PROVIDERS: Nurse Practitioner Family; Admitting Provider Psychiatry & Neurology Psychiatry; Emergency Provider Emergency Medicine; PCP Nurse Practitioner Family; Visit Provider Clinical Nurse Specialist Psychiatric/Mental Health, Adult
DX: F31.60 Bipolar disorder, current episode mixed, unspecified (principal); R45.851 Suicidal ideations; Z20.822 Contact with and (suspected) exposure to COVID-19; Z59.02 Unsheltered homelessness; Z88.8 Allergy status to other drugs, medicaments and biological substances; Z79.899 Other long term (current) drug therapy
CPT/HCPCS: 36415; 80053; 80307; 81003; 85025; 87635; 99285; Q0163

== ENCOUNTER 2022-03-20 09:00 | Outpatient (RCR) | payer OTHER, SELFPAY ==
--- NOTE | 2022-01-21 16:48 | P.CONTMS_ITS ---
History of Present Illness General Data Date of Service: 01/21/22 Reason for consult: TMS/ECT FOR BY [facility] SEEN BY DR. JULIO KAY History of Present Illness PATIENT IS A 36-YEAR-OLD male history of multiple psychiatric hospitalizations over the past year seen by elise romero at [facility] in psychotherapy and has been seeing Dr. Sarai Ceron also at [facility]. He has also been recently hospitalized on the psychiatric unit at [facility] times to and was under the care of Brenda and Son Lorena who appears to know the patient quite well. There has been some lack of clarity whether not the patient has bipolar disorder. He apparently was doing reasonably well working hard building house and trying image realistic transactions and page suddenly became and at some point felt overwhelmed got rid of his holdings and put himself and his family in a hole and has since then been depressed. Spoke with patient his Dr. Kay and although the patient had been working hard previously on a project that he felt was providing for himself and his family's future is not clear that this was a manic episode. He denies clear periods of decreased need for sleep euphoria increased activity or impulsivity. The patient has been treated over the past year with a combination of multiple medications most recently he has been prescribed Wellbutrin to 150 mg Abilify to 10 mg clonazepam can take a half to 1 tablet daily. Patient because of anxiety has had a hard time medication compliance feels often he is going to get sexual side effects and he becomes despondent. When he has generally been endorsing over the past few months has been lack of energy hopelessness helplessness feeling despondent thoughts that he would be better off but denies plan or intent stating he wants to stay there for his family but has experienced deep shame since loss perceive socioeconomic status and impulsively selling off really states that he feels he could have made significant money for himself and his family's future patient does appear to have a childhood history of ADD U periods of impulsivity distractibility low threshold and patient Past Psychiatric History/Medication Trials: The patient has had trials of mirtazapine sertraline Vraylar Latuda Lamictal lithium the patient would often stop the medication fairly quickly due to concerns regarding medication side effects and fears regarding sexual side effects. [facility] Medical History (Updated 01/24/22 @ 10:36 by Alan Yu MD) Depression Generalized anxiety disorder Major depressive disorder, recurrent severe without psychotic features Mixed bipolar disorder Family History: Bipolar-Father, Brother-homebound with severe illness Social History: , 2 children-son age 12 from a previous relationship who was adopted by pt's sister; daughter 5. Unemployed, seeking social security Trauma History: Losses Meds/Allergies Allergies Allergies Allergy/AdvReac Type Severity Reaction Status Date / Time lamotrigine [From Lamictal] Allergy Severe Rash Verified 11/03/21 15:52 Mental Status Exam Mental Status Exam Patient Appearance: Well Grooomed and Fatigued Level of Consciousness: Awake and Appropriate Patient Behavior: Appropriate Mood Description: Constricted, Depressed, Anxious and Apprehensive Affect Description: Depressed, Anxious, Blunted and Apprehensive Ability to Follow Directions: Good Speech Pattern: Appropriate Memory Description: Intact Delusions: Not Present Depressive Symptoms: Increased Anxiety, Diff. Making Decisions, Increased Irritability, Reduced Sex Drive, Loss of Int. in Activity, Feelings of Worthlessness, Feelings of Guilt, Thoughts of /Suicide, Low Self Esteem and Difficulty Concentrating Judgement: Fair Judgement and Insight: Difficulty understanding how treatment works Assessment & Plan Assessment & Plan (1) Major depressive disorder, recurrent severe without psychotic features: Status: Acute Code(s): F33.2 - Major depressive disorder, recurrent severe without psychotic features Assessment and Plan: There is question of bipolarity and patient are unclear about this Dr. Kay did not see clear adri and speaking with Liliam feliciano [facility] nurse practitioner felt that the patient had more in the way of anxiety overuse of red bull triggering panic in the past. The patient has not responded to antidepressant multiple trials including sertraline up to 200 mg mirtazapine up to reportedly 30 mg Wellbutrin 150 mg with Abilify augmentation patient for frequently becomes concerned about side effects has been admitted psychiatrically for over 6 inpatient hospitalizations. There is what appears to be baseline behaviors distractibility impulsivity since childhood consistent with ADHD. Given patient's lack of response to medication he would be a candidate for TMS monitor for evidence of bipolarity and if need be discussed option to switch to electroconvulsive therapy. Given patient's lack of tolerance of treatment difficulty with any perceived side effects believe TMS would be the best initial option with much lower side effect risk profile of patient becomes more unstable active least suicidal or evidence of bipolarity will then switch to electroconvulsive therapy. This was discussed with patient's psychiatrist Dr. Kay and patient there are no medical contraindications to TMS no pace maker for metallic fragments history of surgery above the head and neck cochlear implant (2) Generalized anxiety disorder: Status: Acute Code(s): F41.1 - Generalized anxiety disorder Patient seen the extensive medical records reviewed case reviewed with outpatient psychiatrist Dr. Kay and with Liliam Carrillo NP.
--- NOTE | 2022-01-28 22:46 | P.PNPS_ITS ---
TMS Daily Progress Note Daily TMS Progress Note Date of Service: 01/28/22 Week #: 1 Treatment #(07-01): 1 PHQ-9 Pre-Treatment (06-28): 24 PHQ-9 Most Recent (06-28): 24 Reviewed: TMS Mapping/Re-mapping completed Verification: I have reviewed the TMS Youth Support Worker Note and agree with the contents. The patient remains a candidate to continue TMS treatment per protocol. mapping completed without difficulty discussed need to maintain medication Assessment and Plan (1) Major depressive disorder, recurrent severe without psychotic features: Status: Acute (2) Generalized anxiety disorder: Status: Acute Plan Initial mapping completed tolerated well
--- NOTE | 2022-01-29 22:49 | HO.TMSDAILY2 ---
TMS Daily Progress Note Daily TMS Progress Note Date of Service: 01/30/22 Week #: 1 Treatment #(07-01): 2 PHQ-9 Pre-Treatment (06-28): 24 PHQ-9 Most Recent (06-28): 24 Reviewed: TMS Tech Note Reviewed Verification: I have reviewed the TMS Production Service Manager Note and agree with the contents. The patient remains a candidate to continue TMS treatment per protocol. Assessment and Plan (1) Major depressive disorder, recurrent severe without psychotic features: Status: Acute (2) Generalized anxiety disorder: Status: Acute Plan cont tx plan
--- NOTE | 2022-01-30 13:39 | HO.PSYCHPN ---
Subjective Subjective Reason For Visit: DEPRESSION Medications Allergies Allergies Allergy/AdvReac Type Severity Reaction Status Date / Time lamotrigine [From Lamictal] Allergy Severe Rash Verified 11/03/21 15:52 Assessment & Plan Assessment & Plan (1) Major depressive disorder, recurrent severe without psychotic features: Status: Acute Code(s): F33.2 - Major depressive disorder, recurrent severe without psychotic features (2) Generalized anxiety disorder: Status: Acute Code(s): F41.1 - Generalized anxiety disorder Plan cont tx plan I spent minutes with the patient and/or on the patient floor today, greater than?50% of which was spent counseling/coordinating care.
--- NOTE | 2022-02-05 21:21 | HO.TMSDAILY2 ---
TMS Daily Progress Note Daily TMS Progress Note Date of Service: 02/05/22 Week #: 2 Treatment #(07-01): 6 PHQ-9 Pre-Treatment (06-28): 24 PHQ-9 Most Recent (06-28): 24 Reviewed: TMS Tech Note Reviewed Verification: I have reviewed the TMS Immigration Coordinator Note and agree with the contents. The patient remains a candidate to continue TMS treatment per protocol. Assessment and Plan (1) Major depressive disorder, recurrent severe without psychotic features: Status: Acute (2) Generalized anxiety disorder: Status: Acute Plan cont to evaluate pts safety cooperation with tx
--- NOTE | 2022-02-06 21:12 | HO.TMSDAILY2 ---
TMS Daily Progress Note Daily TMS Progress Note Date of Service: 01/30/22 Week #: 1 Treatment #(07-01): 3 PHQ-9 Pre-Treatment (06-28): 24 PHQ-9 Most Recent (06-28): 24 Reviewed: TMS Tech Note Reviewed Verification: I have reviewed the TMS Overnight Caregiver Note and agree with the contents. The patient remains a candidate to continue TMS treatment per protocol.
--- NOTE | 2022-02-06 21:18 | HO.TMSDAILY2 ---
TMS Daily Progress Note Daily TMS Progress Note Date of Service: 01/31/22 Week #: 1 Treatment #(07-01): 4 PHQ-9 Pre-Treatment (06-28): 24 PHQ-9 Most Recent (06-28): 24 Reviewed: TMS Tech Note Reviewed Verification: I have reviewed the TMS Monitoring Engineer Note and agree with the contents. The patient remains a candidate to continue TMS treatment per protocol. Assessment and Plan (1) Major depressive disorder, recurrent severe without psychotic features: Status: Acute (2) Generalized anxiety disorder: Status: Acute Plan coil angle changed adj made sec to l fascial discomfort
--- NOTE | 2022-02-06 21:20 | HO.TMSDAILY2 ---
TMS Daily Progress Note Daily TMS Progress Note Date of Service: 02/01/22 Week #: 1 Treatment #(07-01): 5 PHQ-9 Pre-Treatment (06-28): 24 PHQ-9 Most Recent (06-28): 24 Reviewed: TMS Tech Note Reviewed Verification: I have reviewed the TMS Concrete Pavement Installer Note and agree with the contents. The patient remains a candidate to continue TMS treatment per protocol. Assessment and Plan (1) Major depressive disorder, recurrent severe without psychotic features: Status: Acute (2) Generalized anxiety disorder: Status: Acute Plan pt advised to not keep changing his medication to speak to his prescribing psychiatrist
--- NOTE | 2022-02-06 21:55 | HO.TMSDAILY2 ---
TMS Daily Progress Note Daily TMS Progress Note Date of Service: 02/06/22 Week #: 2 Treatment #(07-01): 7 PHQ-9 Pre-Treatment (06-28): 24 PHQ-9 Most Recent (06-28): 24 Reviewed: TMS Tech Note Reviewed Verification: I have reviewed the TMS Retail Field Merchandiser Note and agree with the contents. The patient remains a candidate to continue TMS treatment per protocol. Assessment and Plan (1) Major depressive disorder, recurrent severe without psychotic features: Status: Acute (2) Generalized anxiety disorder: Status: Acute Plan continue plan of care
--- NOTE | 2022-02-07 09:54 | P.PNPS_ITS ---
TMS Daily Progress Note Daily TMS Progress Note Date of Service: 02/07/22 Week #: 2 Treatment #(07-01): 8 PHQ-9 Pre-Treatment (06-28): 24 PHQ-9 Most Recent (06-28): 24 Reviewed: TMS Tech Note Reviewed Verification: I have reviewed the TMS Invertebrate Paleontologist Note and agree with the contents. The patient remains a candidate to continue TMS treatment per protocol. Assessment and Plan (1) Major depressive disorder, recurrent severe without psychotic features: Status: Acute (2) Generalized anxiety disorder: Status: Acute Plan continue plan of care no adverse effects noted
--- NOTE | 2022-02-11 13:03 | HO.TMSDAILY2 ---
TMS Daily Progress Note Daily TMS Progress Note Date of Service: 02/08/22 Week #: 2 Treatment #(07-01): 9 PHQ-9 Pre-Treatment (06-28): 24 PHQ-9 Most Recent (06-28): 24 Reviewed: TMS Tech Note Reviewed Verification: I have reviewed the TMS School Bus Dispatcher Note and agree with the contents. The patient remains a candidate to continue TMS treatment per protocol. Assessment and Plan (1) Major depressive disorder, recurrent severe without psychotic features: Status: Acute (2) Generalized anxiety disorder: Status: Acute Plan pt has prescription for clonidine in past discussed please reach out to his psychiatrist
--- NOTE | 2022-02-11 13:07 | P.PNPS_ITS ---
TMS Daily Progress Note Daily TMS Progress Note Date of Service: 02/11/22 Week #: 2 Treatment #(07-01): 10 PHQ-9 Pre-Treatment (06-28): 24 PHQ-9 Most Recent (06-28): 24 Reviewed: TMS Tech Note Reviewed Verification: I have reviewed the TMS Assistant City Attorney Note and agree with the contents. The patient remains a candidate to continue TMS treatment per protocol. Assessment and Plan (1) Major depressive disorder, recurrent severe without psychotic features: Status: Acute (2) Generalized anxiety disorder: Status: Acute Plan seems to be mildly improving
--- NOTE | 2022-02-12 13:32 | HO.TMSDAILY2 ---
TMS Daily Progress Note Daily TMS Progress Note Date of Service: 02/12/22 Week #: 3 Treatment #(07-01): 11 PHQ-9 Pre-Treatment (06-28): 24 PHQ-9 Most Recent (06-28): 24 Reviewed: TMS Tech Note Reviewed Verification: I have reviewed the TMS Gun Club Manager Note and agree with the contents. The patient remains a candidate to continue TMS treatment per protocol.
--- NOTE | 2022-02-13 22:59 | P.PNPS_ITS ---
TMS Daily Progress Note Daily TMS Progress Note Date of Service: 02/13/22 Week #: 3 Treatment #(07-01): 12 PHQ-9 Pre-Treatment (06-28): 24 PHQ-9 Most Recent (06-28): 24 Reviewed: TMS Tech Note Reviewed Verification: I have reviewed the TMS Drawing Frame Tender Note and agree with the contents. The patient remains a candidate to continue TMS treatment per protocol.
--- NOTE | 2022-02-14 23:09 | P.PNPS_ITS ---
TMS Daily Progress Note Daily TMS Progress Note Date of Service: 02/14/22 Week #: 3 Treatment #(07-01): 13 PHQ-9 Pre-Treatment (06-28): 24 PHQ-9 Most Recent (06-28): 24 Reviewed: TMS Tech Note Reviewed Verification: I have reviewed the TMS Senior Environmental Engineer Note and agree with the contents. The patient remains a candidate to continue TMS treatment per protocol.
--- NOTE | 2022-02-15 16:50 | HO.TMSDAILY2 ---
TMS Daily Progress Note Daily TMS Progress Note Date of Service: 02/15/22 Week #: 3 Treatment #(07-01): 13 PHQ-9 Pre-Treatment (06-28): 24 PHQ-9 Most Recent (06-28): 24 Reviewed: TMS Tech Note Reviewed Verification: I have reviewed the TMS Tariff Compiler Note and agree with the contents. The patient remains a candidate to continue TMS treatment per protocol. Assessment and Plan (1) Major depressive disorder, recurrent severe without psychotic features: Status: Acute Plan continue TMS Tx
--- NOTE | 2022-02-18 17:38 | P.PNPS_ITS ---
TMS Daily Progress Note Daily TMS Progress Note Date of Service: 02/18/22 Week #: 4 Treatment #(07-01): 16 PHQ-9 Pre-Treatment (06-28): 24 PHQ-9 Most Recent (06-28): 24 Reviewed: TMS Tech Note Reviewed Verification: I have reviewed the TMS Mechanic Sound Technician Note and agree with the contents. The patient remains a candidate to continue TMS treatment per protocol.
--- NOTE | 2022-02-19 21:40 | HO.TMSDAILY2 ---
TMS Daily Progress Note Daily TMS Progress Note Date of Service: 02/19/22 Week #: 4 Treatment #(07-01): 17 PHQ-9 Pre-Treatment (06-28): 24 PHQ-9 Most Recent (06-28): 24 Reviewed: TMS Tech Note Reviewed Verification: I have reviewed the TMS Pediatric Physician Assistant Note and agree with the contents. The patient remains a candidate to continue TMS treatment per protocol. Assessment and Plan (1) Major depressive disorder, recurrent severe without psychotic features: Status: Acute Plan continue TMS Tx pt seems less anxious irritable consider remapping
--- NOTE | 2022-02-20 21:57 | P.PNPS_ITS ---
TMS Daily Progress Note Daily TMS Progress Note Date of Service: 02/20/22 Week #: 4 Treatment #(07-01): 17 PHQ-9 Pre-Treatment (06-28): 24 PHQ-9 Most Recent (06-28): 24 Reviewed: TMS Tech Note Reviewed Verification: I have reviewed the TMS Enterprise Architect Manager Note and agree with the contents. The patient remains a candidate to continue TMS treatment per protocol.
--- NOTE | 2022-02-21 21:57 | HO.TMSDAILY2 ---
TMS Daily Progress Note Daily TMS Progress Note Date of Service: 02/21/22 Week #: 4 Treatment #(07-01): 18 PHQ-9 Pre-Treatment (06-28): 24 PHQ-9 Most Recent (06-28): 24 Reviewed: TMS Tech Note Reviewed Verification: I have reviewed the TMS Tag Machine Operator Note and agree with the contents. The patient remains a candidate to continue TMS treatment per protocol.
--- NOTE | 2022-02-22 16:44 | HO.TMSDAILY2 ---
TMS Daily Progress Note Daily TMS Progress Note Date of Service: 02/22/22 Week #: 4 Treatment #(07-01): 19 PHQ-9 Pre-Treatment (06-28): 24 PHQ-9 Most Recent (06-28): 24 Reviewed: TMS Mapping/Re-mapping completed Verification: I have reviewed the TMS Pipe Threading Machine Operator Note and agree with the contents. The patient remains a candidate to continue TMS treatment per protocol. Assessment and Plan (1) Major depressive disorder, recurrent severe without psychotic features: Status: Acute (2) Generalized anxiety disorder: Status: Acute Plan Patient seems significantly less agitated and does state he is having some intermittent improvement which is a change for him remember being completed today there is a change in MT and position
--- NOTE | 2022-02-25 10:46 | HO.TMSDAILY2 ---
TMS Daily Progress Note Daily TMS Progress Note Date of Service: 02/25/22 Week #: 4 Treatment #(07-01): 20 PHQ-9 Pre-Treatment (06-28): 24 PHQ-9 Most Recent (06-28): 24 Reviewed: TMS Tech Note Reviewed Verification: I have reviewed the TMS Supervisor Kosher Dietary Service Note and agree with the contents. The patient remains a candidate to continue TMS treatment per protocol. Assessment and Plan (1) Major depressive disorder, recurrent severe without psychotic features: Status: Acute (2) Generalized anxiety disorder: Status: Acute Plan Case discussed with Dr. Letty Ashby patient psychiatry patient now started on Vraylar continues to have significant depressive symptoms remain at being completed last visit
--- NOTE | 2022-02-25 15:40 | W.PM.TMSCONS ---
[facility] Medical History Depression Generalized anxiety disorder Major depressive disorder, recurrent severe without psychotic features Mixed bipolar disorder Family History: Bipolar-Father, Brother-homebound with severe illness Social History: , 2 children-son age 12 from a previous relationship who was adopted by pt's sister; daughter 5. Unemployed, seeking social security Trauma History: Losses Meds/Allergies Allergies Allergies Allergy/AdvReac Type Severity Reaction Status Date / Time lamotrigine [From Lamictal] Allergy Severe Rash Verified 11/03/21 15:52 Assessment & Plan I spent minutes with the patient and/or on the patient floor today, greater than?50% of which was spent counseling/coordinating care.
--- NOTE | 2022-03-01 23:24 | P.PNPS_ITS ---
TMS Daily Progress Note Daily TMS Progress Note Date of Service: 02/26/22 Week #: 4 Treatment #(07-01): 20 PHQ-9 Pre-Treatment (06-28): 24 PHQ-9 Most Recent (06-28): 24 Reviewed: TMS Tech Note Reviewed Verification: I have reviewed the TMS Construction Craft Laborer Note and agree with the contents. The patient remains a candidate to continue TMS treatment per protocol. Assessment and Plan (1) Major depressive disorder, recurrent severe without psychotic features: Status: Acute (2) Generalized anxiety disorder: Status: Acute Plan Case discussed with Dr. Letty Ashby patient psychiatry patient now started on Vraylar continues to have significant depressive symptoms remain at being completed last visit encourage contued tx plan and med acceptance
--- NOTE | 2022-03-01 23:27 | HO.TMSDAILY2 ---
TMS Daily Progress Note Daily TMS Progress Note Date of Service: 02/27/22 Week #: 5 Treatment #(07-01): 5 PHQ-9 Pre-Treatment (06-28): 24 PHQ-9 Most Recent (06-28): 24 Reviewed: TMS Tech Note Reviewed Verification: I have reviewed the TMS Cemetery Workers Supervisor Note and agree with the contents. The patient remains a candidate to continue TMS treatment per protocol.
--- NOTE | 2022-03-01 23:29 | HO.TMSDAILY2 ---
TMS Daily Progress Note Daily TMS Progress Note Date of Service: 02/28/22 Week #: 5 Treatment #(07-01): 6 PHQ-9 Pre-Treatment (06-28): 24 PHQ-9 Most Recent (06-28): 24 Reviewed: TMS Tech Note Reviewed Verification: I have reviewed the TMS Vice President Of Brand Management Note and agree with the contents. The patient remains a candidate to continue TMS treatment per protocol.
--- NOTE | 2022-03-04 23:30 | P.PNPS_ITS ---
TMS Daily Progress Note Daily TMS Progress Note Date of Service: 03/04/22 Week #: 5 Treatment #(07-01): 25 PHQ-9 Pre-Treatment (06-28): 24 PHQ-9 Most Recent (06-28): 24 Reviewed: TMS Tech Note Reviewed Verification: I have reviewed the TMS Electrical And Instrumentation Mechanic Note and agree with the contents. The patient remains a candidate to continue TMS treatment per protocol.
--- NOTE | 2022-03-05 17:52 | P.PNPS_ITS ---
TMS Daily Progress Note Daily TMS Progress Note Date of Service: 03/05/22 Week #: 6 Treatment #(07-01): 26 PHQ-9 Pre-Treatment (06-28): 24 PHQ-9 Most Recent (06-28): 24 Reviewed: TMS Tech Note Reviewed Verification: I have reviewed the TMS Airfreight Loading Supervisor Note and agree with the contents. The patient remains a candidate to continue TMS treatment per protocol. Assessment and Plan (1) Major depressive disorder, recurrent severe without psychotic features: Status: Acute (2) Generalized anxiety disorder: Status: Acute Plan improvement noted
--- NOTE | 2022-03-14 16:19 | HO.TMSDAILY2 ---
TMS Daily Progress Note Daily TMS Progress Note Date of Service: 03/14/22 Week #: 7 Treatment #(07-01): 31 PHQ-9 Pre-Treatment (06-28): 27 PHQ-9 Most Recent (06-28): 27 Reviewed: TMS Tech Note Reviewed Verification: I have reviewed the TMS Sales Development Associate Note and agree with the contents. The patient remains a candidate to continue TMS treatment per protocol.
--- NOTE | 2022-03-18 16:12 | P.PNPS_ITS ---
TMS Daily Progress Note Daily TMS Progress Note Date of Service: 03/06/22 Week #: 6 Treatment #(07-01): 27 PHQ-9 Pre-Treatment (06-28): 27 PHQ-9 Most Recent (06-28): 18 Reviewed: TMS Tech Note Reviewed Verification: I have reviewed the TMS Front Office Attendant Note and agree with the contents. The patient remains a candidate to continue TMS treatment per protocol.
--- NOTE | 2022-03-18 16:16 | P.PNPS_ITS ---
TMS Daily Progress Note Daily TMS Progress Note Date of Service: 03/07/22 Week #: 6 Treatment #(07-01): 28 PHQ-9 Pre-Treatment (06-28): 27 PHQ-9 Most Recent (06-28): 18 Reviewed: TMS Tech Note Reviewed Verification: I have reviewed the TMS Morals Squad Police Officer Note and agree with the contents. The patient remains a candidate to continue TMS treatment per protocol.
--- NOTE | 2022-03-18 16:17 | HO.TMSDAILY2 ---
TMS Daily Progress Note Daily TMS Progress Note Date of Service: 03/08/22 Week #: 6 Treatment #(07-01): 29 PHQ-9 Pre-Treatment (06-28): 27 PHQ-9 Most Recent (06-28): 18 Reviewed: TMS Tech Note Reviewed Verification: I have reviewed the TMS Licensed Sales Producer Note and agree with the contents. The patient remains a candidate to continue TMS treatment per protocol.
--- NOTE | 2022-03-18 16:18 | P.PNPS_ITS ---
TMS Daily Progress Note Daily TMS Progress Note Date of Service: 03/18/22 Week #: 6 Treatment #(07-01): 30 PHQ-9 Pre-Treatment (06-28): 27 PHQ-9 Most Recent (06-28): 27 Reviewed: TMS Tech Note Reviewed Verification: I have reviewed the TMS Yard Assistant Note and agree with the contents. The patient remains a candidate to continue TMS treatment per protocol. spoke with pt today regarding his unremitting symptoms, reviewed option of ECT. pt to consult with dr. abrams upon aliza's return.
--- NOTE | 2022-03-18 22:13 | P.PNPS_ITS ---
TMS Daily Progress Note Daily TMS Progress Note Date of Service: 03/18/22 Week #: 7 Treatment #(07-01): 32 PHQ-9 Pre-Treatment (06-28): 27 PHQ-9 Most Recent (06-28): 27 Reviewed: TMS Tech Note Reviewed Verification: I have reviewed the TMS Public Relations Consultant Note and agree with the contents. The patient remains a candidate to continue TMS treatment per protocol.
== END 2022-06-01 23:59 | disposition home or self-care (01) ==
LOC: HO.PTMS 09:00
PROVIDERS: PCP Nurse Practitioner Family; Visit Provider Psychiatry & Neurology Psychiatry
DX: F33.2 Major depressive disorder, recurrent severe without psychotic features (principal); F41.1 Generalized anxiety disorder
CPT/HCPCS: 90867; 90868; 90869; 99204

== ENCOUNTER → 2022-03-20 10:28 | Outpatient (REF) | payer MEDICAID, SELFPAY ==
--- NOTE | 2022-03-20 10:50 | ECG_ITS ---
Test Reason : MAJOR DEPRESSION Blood Pressure : / mmHG Vent. Rate : 063 BPM Atrial Rate : 063 BPM P-R Int : 138 ms QRS Dur : 090 ms QT Int : 376 ms P-R-T Axes : 046 079 001 degrees QTc Int : 384 ms Normal sinus rhythm Nonspecific T wave abnormality Inferior leads Abnormal ECG When compared with ECG of 03-NOV-2021 18:21, Nonspecific T wave abnormality no longer evident in Lateral leads Referred By: Alan Yu Electronically Signed By:PEYTON MABRY MD
[2022-03-20 11:12] LABS: MANUAL DIFF FLAG NO
[2022-03-20 11:56] LABS: Basophils Percent Auto 0.6 % (0-2); Eosinophils Percent Auto 0.6 % (0-4); Hematocrit 47.5 % (42.0-52.0); Hemoglobin 15.7 g/dl (14.0-18.0); Imm Gran Abs Auto 0.01 X10*3/uL (0.00-0.03); Imm Gran Pct Auto 0.2 % (0.0-0.4); Lymphocytes Absolute Auto 1.6 X10*3/uL (1.2-4.9); Lymphocytes Percent Auto 34.3 % (20-40); Mean Corpuscular HGB Conc 33.1 g/dl (31.0-36.0); Mean Corpuscular Hemoglobin 29.1 pg (27.0-33.0); Mean Platelet Volume 10.3 fL (9.4-12.4); Monocytes Absolute Auto 0.4 X10*3/uL (0.1-1.2); Monocytes Percent Auto 7.3 % (2-11); Neutrophils Absolute Auto 2.7 x10*3/uL (2.0-8.3); Platelet Count 213 X10*3/uL (160-400); Red Cell Distribution Width 12.6 % (11.0-16.0); White Blood Count 4.8 X10*3/uL (4.8-10.8)
[2022-03-20 12:27] LABS: Alanine Aminotransferase 32 U/L (0-40); Albumin Level 4.8 g/dL (3.5-5.0); Alkaline Phosphatase 54 U/L (39-117); Anion Gap 16 (12-20); Aspartate Amino Transferase 19 U/L (5-37); Bilirubin Total 0.5 mg/dL (0.0-1.0); Blood Urea Nitrogen 14 mg/dL (9-16); Calcium 9.8 mg/dL (8.4-10.2); Carbon Dioxide 27 mmol/L (22-29); Chloride 103 mmol/L (96-108); Estimated Glomerular Filt Rate > 60; Glucose Random 90 mg/dL (60-115); Potassium 4.6 mmol/L (3.3-5.1); Sodium 141 mmol/L (135-145); Total Protein 7.6 g/dL (6.5-8.0)
[2022-03-20 12:52] LABS: TSH reflex Free T4 1.09 uIU/mL (0.32-4.0)
== END ==
LOC: HO.CARD 10:28
PROVIDERS: PCP Nurse Practitioner Family; Visit Provider Psychiatry & Neurology Psychiatry
DX: R94.31 Abnormal electrocardiogram [ECG] [EKG] (principal); F33.2 Major depressive disorder, recurrent severe without psychotic features; F41.1 Generalized anxiety disorder
CPT/HCPCS: 36415; 80053; 84443; 85025; 93005; 99212

== ENCOUNTER 2023-01-01 12:28 | Outpatient (REF) | payer OTHER, SELFPAY ==
--- NOTE | 2023-01-01 13:30 | ECG_ITS ---
Test Reason : F41.1 Blood Pressure : / mmHG Vent. Rate : 061 BPM Atrial Rate : 061 BPM P-R Int : 150 ms QRS Dur : 088 ms QT Int : 388 ms P-R-T Axes : 059 078 018 degrees QTc Int : 390 ms Normal sinus rhythm Normal ECG When compared with ECG of 20-MAR-2022 10:51, No significant change was found Referred By: Alan Yu Electronically Signed By:ANDREW SALINAS
[2023-01-01 13:38] LABS: MANUAL DIFF FLAG NO
[2023-01-01 13:50] LABS: Basophils Percent Auto 0.5 % (0-2); Eosinophils Percent Auto 0.5 % (0-4); Hematocrit 45.5 % (42.0-52.0); Hemoglobin 14.8 g/dl (14.0-18.0); Imm Gran Abs Auto 0.02 X10*3/uL (0.00-0.03); Imm Gran Pct Auto 0.4 % (0.0-0.4); Lymphocytes Absolute Auto 2.1 X10*3/uL (1.2-4.9); Lymphocytes Percent Auto 37.2 % (20-40); Mean Corpuscular HGB Conc 32.5 g/dl (31.0-36.0); Mean Corpuscular Hemoglobin 29.3 pg (27.0-33.0); Mean Corpuscular Volume 90.1 fL (80.0-98.0); Mean Platelet Volume 9.7 fL (9.4-12.4); Monocytes Absolute Auto 0.5 X10*3/uL (0.1-1.2); Monocytes Percent Auto 8.7 % (2-11); Neutrophils Absolute Auto 2.9 x10*3/uL (2.0-8.3); Neutrophils Percent Auto 52.7 % (45-73); Platelet Count 265 X10*3/uL (160-400); Red Blood Count 5.05 X10*6/uL (4.60-5.80); Red Cell Distribution Width 14.2 % (11.0-16.0); White Blood Count 5.5 X10*3/uL (4.8-10.8)
[2023-01-01 14:41] LABS: Alanine Aminotransferase 38 U/L (0-40); Albumin Level 4.5 g/dL (3.5-5.0); Alkaline Phosphatase 65 U/L (39-117); Anion Gap 17 (12-20); Aspartate Amino Transferase 23 U/L (5-37); Bilirubin Total 0.3 mg/dL (0.0-1.0); Blood Urea Nitrogen 13 mg/dL (9-16); Calcium 9.5 mg/dL (8.4-10.2); Carbon Dioxide 23 mmol/L (22-29); Chloride 105 mmol/L (96-108); Estimated Glomerular Filt Rate > 60; Glucose Random 82 mg/dL (60-115); Potassium 3.9 mmol/L (3.3-5.1); Sodium 141 mmol/L (135-145); Total Protein 7.9 g/dL (6.5-8.0)
[2023-01-01 14:58] LABS: TSH reflex Free T4 2.19 uIU/mL (0.32-4.0)
[2023-01-01 15:04] LABS: Folate 8.7 ng/mL (> or = 4.0); Vitamin B12 535 pg/mL (200-900)
== END 2023-01-01 12:29 | disposition home or self-care (01) ==
LOC: HO.LAB 12:28
PROVIDERS: PCP Nurse Practitioner Family; Visit Provider Psychiatry & Neurology Psychiatry
DX: Z01.818 Encounter for other preprocedural examination (principal); F33.2 Major depressive disorder, recurrent severe without psychotic features; F41.1 Generalized anxiety disorder; I10 Essential (primary) hypertension
CPT/HCPCS: 36415; 80053; 82607; 82746; 84443; 85025; 93005; 99212

== ENCOUNTER 2023-01-01 12:28 | Outpatient (AMB) | payer OTHER, SELFPAY ==
--- NOTE | 2023-01-01 12:15 | A.OFFPSYCH_ITS ---
Intake Intake Visit Reasons: depression Intake Note: Patient is seen with his sister records reviewed from [facility] Counseling chart reviewed Allergies lamotrigine [From Lamictal] Allergy (Severe, Verified 11/03/21 15:52) Rash Medication List - Last Reconciled 01/05/23 by Alan Yu MD cariprazine (Vraylar) 3 mg PO DAILY clonazepam 0.5 mg PO BID PRN clonidine HCl 0.1 mg See Protocol PO Q4H PRN diphenhydramine HCl (Allergy Relief (diphenhydramine)) 50 mg (2 x 25 mg) PO Q4H PRN eszopiclone 2 mg PO BEDTIME PRN gabapentin 300 mg PO TID PRN melatonin 10 mg PO BEDTIME PRN nicotine (polacrilex) 4 mg buccal Q2H PRN HPI- Psychiatric Chief Complaint: depression HPI Narrative: The patient was referred by [facility] Dr. Letty Ashby and also spoke to the patient's therapist. The patient at this point has a history of chronic depression and has moved out of his children's house to live with his mother. The patient did receive social security disability but this is not enough to support him and his family. The patient has a fixed idea that impulsive strategies regarding his finances that he did 2 years ago in which she sold [employer] that this has caused permanent damage to him and his family economically and he cannot live this down. Patient often stays in bed he is focused on the fact that there is intense she came he feels belittled when he sees other people from the [place] community. He had moved out of his in children's house because he was essentially not functioning and spending much of his time in bed. Through been no psychotic symptoms patient has not been willing or able to take any kind of behavioral recommendations volunteer work part-time job daily exercise to maintain a schedule etc. he has failed multiple medication trials in the past would often change things impulsively. He did complete a trial of TMS which was not effective. He did state that in the past he had seen more functional on stimulants. Patient has had augmentation with Abilify 20 mg which was not effective currently on Wellbutrin 450 mg . The patient had been somewhat grandiose and impulsive prior to severe anxiety and catastrophic thinking about 2 years ago. Whether this was hypomania or question part of ADHD and characterological is not totally clear. Patient does have a brother with bipolar disorder The patient did for many years self medicate with opiates Past Psychiatric History: Meds-Adderall, Klonopin, Lamictal-rash, [place]-tremor on 1500 mg, Latuda-it does nothing, Remeron, Sertraline. Fears impotence on meds and will not tolerate this SE. IP: Apr 2021-Rani Hernandez OP: Ne, [facility] case mgt since 05/22 Mental Status Exam Mental Status Exam Patient Appearance: Well Grooomed Patient Orientation: Person, Place, Time and Situation Level of Consciousness: Awake Patient Behavior: Appropriate and Good Eye Contact Mood Description: Depressed and Apprehensive Affect Description: Constricted, Depressed and Anxious Ability to Follow Directions: Good Speech Pattern: Clear Memory Description: Intact Delusions: Not Present Thought Process: Rumination Thought Content: positive for [place], positive for Preoccupation, positive for Suicidal Ideation (Denies active intent does feel connected to his children but feels intense shame) and negative for Homicidal Ideation Depressive Symptoms: Insomnia, Diff. Making Decisions, Reduced Sex Drive, Feelings of Worthlessness, Hopelessness, Feelings of Guilt, Unhappiness, Increased Fatigue, Low Self Esteem and Loss of Energy Judgement: Fair Judgement and Insight: Tendency towards wanting a treatment yet not willing to confronted need for behavioral changes and intense shame that the patient experiences that is incapacitating Assessment and Plan Assessment & Plan (1) Major depressive disorder, recurrent severe without psychotic features: Status: Acute Code(s): F33.2 - Major depressive disorder, recurrent severe without psychotic features (2) Generalized anxiety disorder: Status: Acute Code(s): F41.1 - Generalized anxiety disorder (3) Hypertension: Status: Acute Code(s): I10 - Essential (primary) hypertension Plan The patient presents a significant conundrum there has been a significant narcissistic injury that the patient seems unwilling to a challenge and try and regain his footing. Clearly the patient has neurovegetative signs of depression as long as patient commits to rehabilitate himself from depression and to try some behavioral strategies he would not be unreasonable to try a course of ECT. Risks benefits alternatives reviewed with the patient and his sister side effects reviewed warnings regarding not driving during the course of ECT at least week after would also consider the use of S ketamine check labs and EKG medical clearance for ECT patient given literature to review Orders: Orders Vitamin B12 and Folate 01/01/23 F33.2 - Major depressive disorder, recurrent severe without psychotic features, F41.1 - Generalized anxiety disorder, Z01.818 - Encounter for other preprocedural examination Comprehensive Met. Panel 01/01/23 F33.2 - Major depressive disorder, recurrent severe without psychotic features, F41.1 - Generalized anxiety disorder, Z01.818 - Encounter for other preprocedural examination TSH reflex Free T4 01/01/23 F33.2 - Major depressive disorder, recurrent severe without psychotic features, F41.1 - Generalized anxiety disorder, Z01.818 - Encounter for other preprocedural examination Complete Blood Count Auto Diff 01/01/23 F33.2 - Major depressive disorder, recurrent severe without psychotic features, F41.1 - Generalized anxiety disorder, Z01.818 - Encounter for other preprocedural examination ECG 12 lead EKG 01/01/23 F31.60 - Bipolar disorder, current episode mixed, unspecified, F41.1 - Generalized anxiety disorder, I10 - Essential (primary) hypertension Counseling and coordination of Care Details: I spent [] minutes reviewing the record, seeing the patient and documenting in the medical record. Counseling provided to the patient/caregiver as outlined below. Addressed patient/caregiver concerns regarding current medication regime including effective adherence. Addressed patient/caregiver concerns regarding diagnosis and prognosis including accuracy of diagnosis, prognosis over time, impact of diagnosis. Addressed patient/caregiver concerns regarding impact of recent stressors. [facility] Medical History (Updated 01/01/23 @ 13:03 by Alan Yu MD) Bipolar 2 disorder Depression Generalized anxiety disorder Hypertension Major depressive disorder, recurrent severe without psychotic features Mixed bipolar disorder Social History Household Members: None Housing: Homeless Do you presently have visiting nurse or other home services: No Alcohol intake: current Patient Tobacco Use Status: Never used Tobacco service: No Sexual orientation: Straight/Heterosexual Social History: , 2 children-son age 12 from a previous relationship who was adopted by pt's sister; daughter 5. Unemployed, seeking social security Substance History: Sober/Clean for 10 years Hx opiates-stopped age 26 Hx alcohol daily-stopped age 26 Hx [id number] age 26 Trauma History: Losses Coding Level of Care Code Est Pt Level 5 (67718) Diagnoses Major depressive disorder, recurrent severe without psychotic features F33.2 Generalized anxiety disorder F41.1 Hypertension I10 Time Spent (min) 65
== END 2023-01-01 14:04 | disposition home or self-care (01) ==
LOC: HO.HOP 12:28
PROVIDERS: PCP Nurse Practitioner Family; Visit Provider Psychiatry & Neurology Psychiatry
DX: F33.2 Major depressive disorder, recurrent severe without psychotic features (principal); F41.1 Generalized anxiety disorder; I10 Essential (primary) hypertension
CPT/HCPCS: 99215

== ENCOUNTER → 2023-01-01 13:30 | Outpatient (BNV) | payer OTHER, SELFPAY | PROVIDERS: PCP Nurse Practitioner Family; Visit Provider Internal Medicine | DX: F41.1 Generalized anxiety disorder (principal) | CPT/HCPCS: 93010 ==